=== PATIENT | female | born 1995 | race Caucasian/White ===

== ENCOUNTER 2020-02-18 19:12 | Inpatient (IN) | payer BC ==
[2020-02-18] MEDS ORDERED: Nalbuphine 10 MG/1 ML Vial IVPUSH PRN (23:04)
[2020-02-18] MEDS ORDERED: Lidocaine 1% 50 ML MDV INJECT PRN (23:04)
[2020-02-18] MEDS ORDERED: Sodium Chloride 0.9% 10 ML Syringe FLUSH PRN (23:04)
[2020-02-18] MEDS ORDERED: Tranexamic Acid 1,000 MG in Sodium Chloride 0.9% 100 ML IV PRN (23:04)
[2020-02-18] MEDS ORDERED: Ondansetron 4 MG/2 ML SDV IVPUSH PRN (23:04)
[2020-02-18] MEDS ORDERED: Carboprost Tromethamine 250 MCG/1 ML Amp IM PRN (23:04)
[2020-02-18] MEDS ORDERED: Methylergonovine 0.2 MG/1 ML Amp IM PRN (23:04)
[2020-02-18] MEDS ORDERED: Misoprostol 200 MCG Tab PO PRN (23:04)
[2020-02-18] MEDS ORDERED: Water For Irrigation,Sterile 1,000 ML Container IRR PRN (23:04)
[2020-02-18] MEDS ORDERED: Butorphanol 1 MG/ML SDV IVPUSH PRN (23:04)
[2020-02-18] MEDS ORDERED: Sodium Chloride 0.9% 10 ML SDV IV PRN (23:04)
[2020-02-18] MEDS ORDERED: Sodium Chloride 0.9% 2.5 ML Syringe FLUSH PRN (23:04)
[2020-02-18] MEDS ORDERED: Lactated Ringers 1,000 ML IV SCH (23:15)
[2020-02-18] MEDS ORDERED: Oxytocin/0.9 % Sodium Chloride 30 UNIT/500 ML BAG IV SCH (23:15)
[2020-02-19] MEDS ORDERED: Ibuprofen 800 MG Tab PO PRN (10:16)
[2020-02-19] MEDS ORDERED: Witch Hazel Medicated Pads 40/Jar TOP PRN (10:16)
[2020-02-19] MEDS ORDERED: Docusate Sodium 100 MG Cap PO PRN (10:16)
[2020-02-19] MEDS ORDERED: Lanolin 100% Cream 7 GM Tube TOP PRN (10:16)
[2020-02-19] MEDS ORDERED: Benzocaine/Menthol 20%-0.5% Spray 78 GM Cannister TOP PRN (10:16)
[2020-02-19] MEDS ORDERED: Bisacodyl 10 MG Supp RECTAL PRN (10:16)
[2020-02-19] MEDS ORDERED: Acetaminophen 500 MG Tab PO PRN ×2 (10:16)
[2020-02-19] MEDS ORDERED: oxyCODONE 5 MG Tab PO PRN (10:16)
[2020-02-19] MEDS ORDERED: Ibuprofen 400 MG Tab PO PRN (10:16)
--- NOTE | 2020-02-19 10:20 | PCM.DEL ---
L & D Note - General Info Date of Service: 02/19/20 Mother's Due Date: 02/19/20 - Delivery Note Labor: Augmented by ARM Delivery Method: Spontaneous Vaginal Delivery-Single Presentation: Right Occiput Anterior (JORDAN) Nuchal Cord: Present (X 2 , tight ) Anesthesia Type: None Amniotic Fluid Description: Clear Episiotomy Type: None Laceration: Labial (left labial small ) Placenta: Intact Cord: 3 Vessels Estimated Blood Loss: 100 Resuscitation Needed: No Score 1 min: 8 Score 5 min: 8 Delivery Comments (Free Text/Narrative):: Live female delivered at 920am , 8/8 , weight 3160g - General Info Date of Service: 02/19/20 - Patient Data Weight - Most Recent: 89.811 kg Lab Results Last 24 Hours: Laboratory Results - last 24 hr 02/18/20 02/18/20 02/18/20 Range/Units 19:28 23:21 23:45 WBC 14.18 H (4.0-11.0) K/uL RBC 4.17 L (4.30-5.90) M/uL Hgb 12.1 (12.0-16.0) g/dL Hct 36.5 (36.0-46.0) % MCV 87.5 (80.0-98.0) fL MCH 29.0 (27.0-32.0) pg MCHC 33.2 (31.0-37.0) g/dL RDW Std Deviation 43.4 (28.0-62.0) fl RDW Coeff of Rosa 14 (11.0-15.0) % Plt Count 223 (150-400) K/uL MPV 11.40 (7.40-12.00) fL Nucleated RBC % 0.0 /100WBC Nucleated RBCs # 0 K/uL Membrane Rupture NEGATIVE Blood Type B POSITIVE Antibody Screen NEGATIVE Med Orders - Current: Current Medications Butorphanol Tartrate (Stadol) 1 mg IVPUSH Q1H PRN PRN Reason: Pain Last Admin: 02/19/20 07:28 Dose: 1 mg Documented by: Carboprost Tromethamine (Hemabate Ds) 250 mcg IM ASDIRECTED PRN PRN Reason: Post Hemorrhage Lactated Ringer's (Ringers, Lactated) 1,000 mls @ 150 mls/hr IV ASDIRECTED [facility] Last Admin: 02/19/20 06:58 Dose: 150 mls/hr Documented by: Oxytocin/Sodium Chloride (Oxytocin 30 Unit/500 Ml-Ns) 30 unit in 500 mls @ 999 mls/hr IV TITRATE [facility] Tranexamic Acid 1,000 mg/ (Sodium Chloride) 110 mls @ 660 mls/hr IV ONETIME PRN PRN Reason: Bleeding Lidocaine HCl (Xylocaine 1%) 50 ml INJECT ONETIME PRN PRN Reason: Laceration repair Methylergonovine Maleate (Methergine) 0.2 mg IM ASDIRECTED PRN PRN Reason: Post Hemorrhage Ondansetron HCl (Zofran) 4 mg IVPUSH Q4H PRN PRN Reason: Nausea/Vomiting Sodium Chloride (Saline Flush) 10 ml FLUSH ASDIRECTED PRN PRN Reason: Keep Vein Open Sodium Chloride (Saline Flush) 2.5 ml FLUSH ASDIRECTED PRN PRN Reason: Keep Vein Open Sodium Chloride (Normal Saline) 10 ml IV ASDIRECTED PRN PRN Reason: IV Use Sterile Water (Sterile Water For Irrigation) 1,000 ml IRR ASDIRECTED PRN PRN Reason: delivery Discontinued Medications Misoprostol (Cytotec) 200 mcg PO ONETIME PRN PRN Reason: Post Hemorrhage Nalbuphine HCl (Nubain) 10 mg IVPUSH Q1H PRN PRN Reason: Pain (severe 7-10) - Problem List & Annotations (1) Vaginal delivery SNOMED Code(s): 672822729 Code(s): O80 - ENCOUNTER FOR FULL-TERM UNCOMPLICATED DELIVERY Status: Acute Current Visit: Yes - Problem List Review Problem List Initiated/Reviewed/Updated: Yes - My Orders Last 24 Hours: My Active Orders 02/18/20 19:34 Patient Status [ADT] Routine Up ad Sujey [RC] ASDIRECTED 02/18/20 23:04 Butorphanol [Stadol] 1 mg IVPUSH Q1H PRN Carboprost Tromethamine [Hemabate DS] 250 mcg IM ASDIRECTED PRN Lidocaine 1% [Xylocaine 1%] 50 ml INJECT ONETIME PRN Methylergonovine [Methergine] 0.2 mg IM ASDIRECTED PRN Ondansetron [Zofran] 4 mg IVPUSH Q4H PRN Sodium Chloride 0.9% [Normal Saline] 10 ml IV ASDIRECTED PRN Sodium Chloride 0.9% [Saline Flush] 10 ml FLUSH ASDIRECTED PRN Sodium Chloride 0.9% [Saline Flush] 2.5 ml FLUSH ASDIRECTED PRN Tranexamic Acid [Cyklokapron] 1,000 mg Sodium Chloride 0.9% [Normal Saline] 100 ml IV ONETIME Water For Irrigation,Sterile [Sterile Water for Irrigation] 1,000 ml IRR ASDIRECTED PRN 02/18/20 23:05 Patient Status [ADT] Routine May Shower [RC] ASDIRECTED Peripheral IV Insertion Adult [OM.PC] Routine 02/18/20 23:15 Lactated Ringers [Ringers, Lactated] 1,000 ml IV ASDIRECTED Oxytocin/0.9 % Sodium Chloride [Oxytocin 30 Unit/500 ML-NS] 30 unit in 500 ml IV TITRATE 02/18/20 23:45 RPR (SYPHILIS SERO) W/ RFLX [REF] Routine 02/19/20 10:16 Patient Status [ADT] Routine May Shower [RC] ASDIRECTED Up ad Sujey [RC] ASDIRECTED Vital Signs [RC] PER UNIT ROUTINE Acetaminophen [Tylenol Extra Strength] 1,000 mg PO Q4H PRN Acetaminophen [Tylenol Extra Strength] 500 mg PO Q4H PRN Benzocaine/Menthol [Dermoplast Pain Relief 20%-0.5% [place]] 78 gm TOP ASDIRECTED PRN Docusate Sodium [Colace] 100 mg PO BID PRN Ibuprofen [Motrin] 400 mg PO Q4H PRN Ibuprofen [Motrin] 800 mg PO Q6H PRN Lanolin [Lansinoh HPA] See Dose Instructions TOP ASDIRECTED PRN bisacodyL [Dulcolax] 10 mg RECTAL ONETIME PRN oxyCODONE 5 mg PO Q2H PRN witch Yannick [Tucks] 1 pad TOP ASDIRECTED PRN Assess Lochia [WOMSER] Per Unit Routine Assess Uterine Involution [WOMSER] Per Unit Routine Peripheral IV Discontinue [OM.PC] Routine Resuscitation Status Routine 02/20/20 05:11 HEMOGLOBIN/HEMATOCRIT,HH [HEME] Timed
--- NOTE | 2020-02-20 07:37 | PCM.PNPP ---
- General Info Date of Service: 02/20/20 Subjective Update: 25yo P1 s/p PPD 1 ambulating , voiding and Normal lochia , Functional Status: Reports: Pain Controlled, Tolerating Diet, Ambulating, Urinating - Review of Systems General: Reports: No Symptoms HEENT: Reports: No Symptoms Pulmonary: Reports: No Symptoms Cardiovascular: Reports: No Symptoms Gastrointestinal: Reports: No Symptoms Genitourinary: Reports: No Symptoms Musculoskeletal: Reports: No Symptoms Skin: Reports: No Symptoms Neurological: Reports: No Symptoms Psychiatric: Reports: No Symptoms - General Info Date of Service: 02/20/20 - Patient Data Vital Signs - Most Recent: Last Vital Signs Temp 36.0 C L 02/20/20 04:11 Pulse 77 02/20/20 04:11 Resp 18 02/20/20 04:11 BP 115/74 02/20/20 04:11 Pulse Ox 97 02/20/20 04:11 Weight - Most Recent: 89.811 kg Lab Results - Last 24 Hours: Laboratory Results - last 24 hr 02/20/20 Range/Units 05:40 Hgb 11.5 L (12.0-16.0) g/dL Hct 35.1 L (36.0-46.0) % Med Orders - Current: Current Medications Acetaminophen (Tylenol Extra Strength) 500 mg PO Q4H PRN PRN Reason: Pain Acetaminophen (Tylenol Extra Strength) 1,000 mg PO Q4H PRN PRN Reason: Pain Benzocaine/Menthol (Dermoplast Pain Relief 20%-0.5% [place]) 78 gm TOP ASDIRECTED PRN PRN Reason: Perineal Comfort Measure Last Admin: 02/19/20 11:43 Dose: 1 canister Documented by: Bisacodyl (Dulcolax) 10 mg RECTAL ONETIME PRN PRN Reason: Constipation Butorphanol Tartrate (Stadol) 1 mg IVPUSH Q1H PRN PRN Reason: Pain Last Admin: 02/19/20 07:28 Dose: 1 mg Documented by: Carboprost Tromethamine (Hemabate Ds) 250 mcg IM ASDIRECTED PRN PRN Reason: Post Hemorrhage Docusate Sodium (Colace) 100 mg PO BID PRN PRN Reason: Constipation Emollient Ointment (Lansinoh Hpa) 0 gm TOP ASDIRECTED PRN PRN Reason: Sore Nipples Last Admin: 02/19/20 11:44 Dose: 1 tube Documented by: Lactated Ringer's (Ringers, Lactated) 1,000 mls @ 150 mls/hr IV ASDIRECTED [facility] Last Admin: 02/19/20 06:58 Dose: 150 mls/hr Documented by: Oxytocin/Sodium Chloride (Oxytocin 30 Unit/500 Ml-Ns) 30 unit in 500 mls @ 999 mls/hr IV TITRATE [facility] Last Admin: 02/19/20 09:24 Dose: 999 mls/hr Documented by: Tranexamic Acid 1,000 mg/ (Sodium Chloride) 110 mls @ 660 mls/hr IV ONETIME PRN PRN Reason: Bleeding Ibuprofen (Motrin) 400 mg PO Q4H PRN PRN Reason: Pain Ibuprofen (Motrin) 800 mg PO Q6H PRN PRN Reason: Pain Lidocaine HCl (Xylocaine 1%) 50 ml INJECT ONETIME PRN PRN Reason: Laceration repair Methylergonovine Maleate (Methergine) 0.2 mg IM ASDIRECTED PRN PRN Reason: Post Hemorrhage Ondansetron HCl (Zofran) 4 mg IVPUSH Q4H PRN PRN Reason: Nausea/Vomiting Oxycodone HCl (Oxycodone) 5 mg PO Q2H PRN PRN Reason: Pain Sodium Chloride (Saline Flush) 10 ml FLUSH ASDIRECTED PRN PRN Reason: Keep Vein Open Sodium Chloride (Saline Flush) 2.5 ml FLUSH ASDIRECTED PRN PRN Reason: Keep Vein Open Sodium Chloride (Normal Saline) 10 ml IV ASDIRECTED PRN PRN Reason: IV Use Sterile Water (Sterile Water For Irrigation) 1,000 ml IRR ASDIRECTED PRN PRN Reason: delivery Witch Yannick (Tucks) 1 pad TOP ASDIRECTED PRN PRN Reason: comfort care Last Admin: 02/19/20 11:32 Dose: 1 pad Documented by: Discontinued Medications Misoprostol (Cytotec) 200 mcg PO ONETIME PRN PRN Reason: Post Hemorrhage Nalbuphine HCl (Nubain) 10 mg IVPUSH Q1H PRN PRN Reason: Pain (severe 7-10) - Interaction Support Person: , Sister - Exam General: Alert, Other Neck: Supple Lungs: Clear to Auscultation Cardiovascular: Regular Rate, Regular Rhythm GI/Abdominal Exam: Normal Bowel Sounds Extremities: Normal Inspection Neurological: No New Focal Deficit Psy/Mental Status: Alert - Problem List & Annotations (1) Vaginal delivery SNOMED Code(s): 176040560 Code(s): O80 - ENCOUNTER FOR FULL-TERM UNCOMPLICATED DELIVERY Status: Acute Current Visit: Yes - Problem List Review Problem List Initiated/Reviewed/Updated: Yes - My Orders Last 24 Hours: My Active Orders 02/19/20 10:16 Patient Status [ADT] Routine May Shower [RC] ASDIRECTED Up ad Sujey [RC] ASDIRECTED Vital Signs [RC] PER UNIT ROUTINE Acetaminophen [Tylenol Extra Strength] 1,000 mg PO Q4H PRN Acetaminophen [Tylenol Extra Strength] 500 mg PO Q4H PRN Benzocaine/Menthol [Dermoplast Pain Relief 20%-0.5% [place]] 78 gm TOP ASDIRECTED PRN Docusate Sodium [Colace] 100 mg PO BID PRN Ibuprofen [Motrin] 400 mg PO Q4H PRN Ibuprofen [Motrin] 800 mg PO Q6H PRN Lanolin [Lansinoh HPA] See Dose Instructions TOP ASDIRECTED PRN bisacodyL [Dulcolax] 10 mg RECTAL ONETIME PRN oxyCODONE 5 mg PO Q2H PRN witch Yannick [Tucks] 1 pad TOP ASDIRECTED PRN Assess Lochia [WOMSER] Per Unit Routine Assess Uterine Involution [WOMSER] Per Unit Routine Peripheral IV Discontinue [OM.PC] Routine Resuscitation Status Routine - Assessment Assessment:: 25yo P1 s/p PPD1 stable , normal lochia - Plan Plan:: Routine Discharge home vitamins Discharge home today
--- NOTE | 2020-02-21 05:30 | PCM.PNPP ---
- General Info Date of Service: 02/21/20 Subjective Update: 25yo P1 s/p PPD 2 ambulating , voiding and Normal lochia , Functional Status: Reports: Pain Controlled, Tolerating Diet, Ambulating, Urinating - Review of Systems General: Reports: No Symptoms HEENT: Reports: No Symptoms Pulmonary: Reports: No Symptoms Cardiovascular: Reports: No Symptoms Gastrointestinal: Reports: No Symptoms Genitourinary: Reports: No Symptoms Musculoskeletal: Reports: No Symptoms Skin: Reports: No Symptoms Neurological: Reports: No Symptoms Psychiatric: Reports: No Symptoms - General Info Date of Service: 02/21/20 - Patient Data Vital Signs - Most Recent: Last Vital Signs Temp 36.4 C 02/20/20 20:40 Pulse 75 02/20/20 20:40 Resp 17 02/20/20 20:40 BP 124/80 02/20/20 20:40 Pulse Ox 99 02/20/20 20:40 Weight - Most Recent: 89.811 kg Lab Results - Last 24 Hours: Laboratory Results - last 24 hr 02/20/20 Range/Units 05:40 Hgb 11.5 L (12.0-16.0) g/dL Hct 35.1 L (36.0-46.0) % Med Orders - Current: Current Medications Acetaminophen (Tylenol Extra Strength) 500 mg PO Q4H PRN PRN Reason: Pain Acetaminophen (Tylenol Extra Strength) 1,000 mg PO Q4H PRN PRN Reason: Pain Last Admin: 02/20/20 07:44 Dose: 1,000 mg Documented by: Benzocaine/Menthol (Dermoplast Pain Relief 20%-0.5% [place]) 78 gm TOP ASDIRECTED PRN PRN Reason: Perineal Comfort Measure Last Admin: 02/19/20 11:43 Dose: 1 canister Documented by: Bisacodyl (Dulcolax) 10 mg RECTAL ONETIME PRN PRN Reason: Constipation Butorphanol Tartrate (Stadol) 1 mg IVPUSH Q1H PRN PRN Reason: Pain Last Admin: 02/19/20 07:28 Dose: 1 mg Documented by: Carboprost Tromethamine (Hemabate Ds) 250 mcg IM ASDIRECTED PRN PRN Reason: Post Hemorrhage Docusate Sodium (Colace) 100 mg PO BID PRN PRN Reason: Constipation Emollient Ointment (Lansinoh Hpa) 0 gm TOP ASDIRECTED PRN PRN Reason: Sore Nipples Last Admin: 02/19/20 11:44 Dose: 1 tube Documented by: Lactated Ringer's (Ringers, Lactated) 1,000 mls @ 150 mls/hr IV ASDIRECTED [facility] Last Admin: 02/19/20 06:58 Dose: 150 mls/hr Documented by: Oxytocin/Sodium Chloride (Oxytocin 30 Unit/500 Ml-Ns) 30 unit in 500 mls @ 999 mls/hr IV TITRATE [facility] Last Admin: 02/19/20 09:24 Dose: 999 mls/hr Documented by: Tranexamic Acid 1,000 mg/ (Sodium Chloride) 110 mls @ 660 mls/hr IV ONETIME PRN PRN Reason: Bleeding Ibuprofen (Motrin) 400 mg PO Q4H PRN PRN Reason: Pain Ibuprofen (Motrin) 800 mg PO Q6H PRN PRN Reason: Pain Lidocaine HCl (Xylocaine 1%) 50 ml INJECT ONETIME PRN PRN Reason: Laceration repair Methylergonovine Maleate (Methergine) 0.2 mg IM ASDIRECTED PRN PRN Reason: Post Hemorrhage Ondansetron HCl (Zofran) 4 mg IVPUSH Q4H PRN PRN Reason: Nausea/Vomiting Oxycodone HCl (Oxycodone) 5 mg PO Q2H PRN PRN Reason: Pain Sodium Chloride (Saline Flush) 10 ml FLUSH ASDIRECTED PRN PRN Reason: Keep Vein Open Sodium Chloride (Saline Flush) 2.5 ml FLUSH ASDIRECTED PRN PRN Reason: Keep Vein Open Sodium Chloride (Normal Saline) 10 ml IV ASDIRECTED PRN PRN Reason: IV Use Sterile Water (Sterile Water For Irrigation) 1,000 ml IRR ASDIRECTED PRN PRN Reason: delivery Witch Kamila (Tucks) 1 pad TOP ASDIRECTED PRN PRN Reason: comfort care Last Admin: 02/19/20 11:32 Dose: 1 pad Documented by: Discontinued Medications Misoprostol (Cytotec) 200 mcg PO ONETIME PRN PRN Reason: Post Hemorrhage Nalbuphine HCl (Nubain) 10 mg IVPUSH Q1H PRN PRN Reason: Pain (severe 7-10) - Interaction Support Person: , Sister - Recovery Exam Fundal Tone: Firm Fundal Level: At Umbilicus Fundal Placement: Midline Lochia Amount: Scant Lochia Color: Rubra/Red Perineum Description: Intact, Minimal Bruising/Swelling Episiotomy/Laceration: None Bladder Status: Voiding Urinary Elimination: Voided - Exam General: Alert HEENT: Pupils Equal Neck: Supple Lungs: Clear to Auscultation Cardiovascular: Regular Rate, Regular Rhythm GI/Abdominal Exam: Normal Bowel Sounds Extremities: Normal Inspection Neurological: No New Focal Deficit - Problem List & Annotations (1) Vaginal delivery SNOMED Code(s): 167923699 Code(s): O80 - ENCOUNTER FOR FULL-TERM UNCOMPLICATED DELIVERY Status: Acute Current Visit: Yes - Problem List Review Problem List Initiated/Reviewed/Updated: Yes - My Orders Last 24 Hours: My Active Orders 02/20/20 Dinner Regular Diet [DIET] 02/21/20 05:27 Ready for Discharge [RC] PER UNIT ROUTINE - Assessment Assessment:: 25yo P1 s/p PPD2 stable , normal lochia stayed due to neonates hyperbilirubinemia - Plan Plan:: Routine Discharge home vitamins Discharge home today
--- NOTE | 2020-02-21 08:22 | OR ---
SURGEON: ELIO KELLEY DATE OF PROCEDURE: 02/19/2020 PREOPERATIVE DIAGNOSIS: A 25-year-old, G1, P0, at 40 weeks 0 days, admitted in early labor. POSTOPERATIVE DIAGNOSIS: A 25-year-old, G1, P0, at 40 weeks 0 days, admitted in early labor. PROCEDURE: Normal spontaneous vaginal delivery. ESTIMATED BLOOD LOSS: 100. PAIN CONTROL: None. IV FLUID: Pitocin running. NOTES AND FINDINGS: A live female with a double nuchal cord, delivered at 9:20 a.m. score is 8 and 8. Weight is 3160 g. BRIEF HISTORY ABOUT THE PATIENT: She was a low-risk patient. She came in complaining of contractions. She was about 4 cm dilated. She made change to 6, then AROM was done. She then made progress and became fully dilated. Heart tracing was mainly category 1. She just had a period where she had some variables, which recovered back to baseline. DESCRIPTION OF PROCEDURE: When the patient was fully dilated, she was encouraged to push. With good pushing effort, she delivered the head. There was a nuchal cord noted around the neck x2. It was attempted to be reduced, however, it was really tight. So she was encouraged to push. Both the shoulders were delivered. Body was delivered, and after delivery, the cord was unwrapped around the neck. Baby was placed on maternal abdomen. Delayed cord clamping was observed. The cord was clamped and cut. Cord blood gases were obtained. Then, the placenta was delivered via controlled cord traction. Perineum was inspected, noted to be intact. IV Pitocin was running. Bimanual exam was done. Uterus was noted to be firm. The patient tolerated the procedure well. All instrument and pad counts were correct x2. SHADI / KEITH /[id number] SANDEEP
== END 2020-02-21 17:00 | disposition home or self-care (01) | DRG 560 ==
LOC: MW.OB 19:12 → MW.OBCHECK 19:12 → MW.OB 23:05 → OBSVTOIN 02-19 10:16 → MW.OB 02-19 16:39
PROVIDERS: ADMIT Obstetrics & Gynecology; ATTEND Obstetrics & Gynecology
PROC: 10E0XZZ Delivery of Products of Conception, External Approach (ICD-10-PCS; principal; 2020-02-19)
PROC: 4A1HXCZ Monitoring of Products of Conception, Cardiac Rate, External Approach (ICD-10-PCS; 2020-02-19)
PROC: 10907ZC Drainage of Amniotic Fluid, Therapeutic from Products of Conception, Via Natural or Artificial Opening (ICD-10-PCS; 2020-02-19)
PROC: 0HQ9XZZ Repair Perineum Skin, External Approach (ICD-10-PCS; 2020-02-19)
DX: O48.0 Post-term pregnancy (principal); Z3A.40 40 weeks gestation of pregnancy; Z37.0 Single live birth; Z98.84 Bariatric surgery status; O69.1XX0 Labor and delivery complicated by cord around neck, with compression, not applicable or unspecified; O70.0 First degree perineal laceration during delivery
CPT/HCPCS: 36415; 59025; 59409; 84112; 85014; 85018; 85027; 86592; 86850; 86900; 86901; A9270-GY; J0595; J2590; J7120

== ENCOUNTER 2020-02-24 13:52 | Inpatient (IN) | payer BC ==
[2020-02-24] MEDS ORDERED: Sodium Chloride 0.9% 1,000 ML IV ONE ×3 (14:22→17:06)
--- NOTE | 2020-02-24 14:27 | EDM.PDOC ---
ED HPI GENERAL MEDICAL PROBLEM - General Chief Complaint: Fever Stated Complaint: fever Time Seen by Provider: 02/24/20 13:58 Source of Information: Reports: Patient History Limitations: Reports: No Limitations - History of Present Illness INITIAL COMMENTS - FREE TEXT/NARRATIVE: Female who is and presents today for DUNCAN and fevers. Patient has been follow with [facility] since delivery complaining of fevers and was placed on Augmentin as outpatient. Patient seemed to follow-up with [facility] today and was scant tachycardia and had worsening DUNCAN so she was sent to the ED. Here patient is states she is feels tired and weak and had a fever no abdominal pain no nausea vomiting shortness of breath no vaginal bleeding. - Related Data Allergies Allergy/AdvReac Type Severity Reaction Status Date / Time No Known Allergies Allergy Verified 02/18/20 23:01 Home Meds: Home Meds Pnv No.95/Ferrous Fum/Folic AC [ Caplet] 1 each PO 02/18/20 [History] Amoxicillin/Potassium Clav [Amox-Clav 875-125 mg Tablet] 1 tab PO BID 02/24/20 [History] Past Medical History HEENT History: Reports: None Cardiovascular History: Reports: None Respiratory History: Reports: None Gastrointestinal History: Reports: None Genitourinary History: Reports: None [employer] History: Reports: Musculoskeletal History: Reports: None Neurological History: Reports: None Psychiatric History: Reports: None Endocrine/Metabolic History: Reports: None Hematologic History: Reports: None Immunologic History: Reports: None Oncologic (Cancer) History: Reports: None Dermatologic History: Reports: None - Infectious Disease History Infectious Disease History: Reports: Chicken Pox - Past Surgical History Head Surgeries/Procedures: Reports: None HEENT Surgical History: Reports: None Cardiovascular Surgical History: Reports: None Respiratory Surgical History: Reports: None GI Surgical History: Reports: Other (See Below) Other GI Surgeries/Procedures: Gastric sleeve in 2018 Female Surgical History: Reports: None Endocrine Surgical History: Reports: None Neurological Surgical History: Reports: None Musculoskeletal Surgical History: Reports: None Oncologic Surgical History: Reports: None Dermatological Surgical History: Reports: None Social & Family History - Family History HEENT: Reports: None Cardiac: Reports: None Respiratory: Reports: None GI: Reports: None : Reports: None OBGYN: Reports: None Musculoskeletal: Reports: None Neurological: Reports: Alzheimers Disease, Vertigo Other Neurological Family History: Stroke Psychiatric: Reports: None Endocrine/Metabolic: Reports: None Hematologic: Reports: None Immunologic: Reports: None Dermatologic: Reports: None Oncologic: Reports: None - Tobacco Use Tobacco Use Status *Q: Former Tobacco User Used Tobacco, but Quit: Yes Month/Year Tobacco Last Used: 05/20 - Caffeine Use Caffeine Use: Reports: Soda - Recreational Drug Use Recreational Drug Use: No ED ROS GENERAL - Review of Systems Review Of Systems: See Below Constitutional: Reports: Fever HEENT: Reports: No Symptoms Respiratory: Reports: No Symptoms Cardiovascular: Reports: No Symptoms Endocrine: Reports: No Symptoms GI/Abdominal: Reports: No Symptoms : Reports: No Symptoms Musculoskeletal: Reports: No Symptoms Skin: Reports: No Symptoms Neurological: Reports: No Symptoms Psychiatric: Reports: No Symptoms Hematologic/Lymphatic: Reports: No Symptoms Immunologic: Reports: No Symptoms ED EXAM, GENERAL - Physical Exam Exam: See Below Exam Limited By: No Limitations General Appearance: Alert, WD/WN Eye Exam: Bilateral Eye: EOMI, PERRL Head: Atraumatic Neck: Normal Inspection Respiratory/Chest: No Respiratory Distress, Lungs Clear, Normal Breath Sounds Cardiovascular: Normal Peripheral Pulses, Regular Rate, Rhythm GI/Abdominal: Normal Bowel Sounds, Soft, Non-Tender Extremities: Normal Inspection, Normal Range of Motion Neurological: Alert, Oriented, CN II-XII Intact, Normal Cognition, Normal Gait Skin Exam: Warm #1 Interpretation EKG Date: 02/24/20 Time: 14:17 Rhythm: Other (sinus tach) Rate (Beats/Min): 136 ST-T: Normal Course - Vital Signs Last Recorded V/S: Last Vital Signs Temp 99.9 F 02/24/20 16:35 Pulse 151 H 02/24/20 18:03 Resp 20 02/24/20 18:03 BP 97/34 L 02/24/20 18:03 Pulse Ox 98 02/24/20 18:03 - Orders/Labs/Meds Orders: Active Orders 24 hr Category Date Time Status Admission Status [Patient Status] [ADT] Stat ADT 02/24/20 18:12 Active EKG 12 Lead [EKG Documentation Completion] [RC] STAT Care 02/24/20 14:25 Active Magnesium Sulfate/Water [Magnesium Sulfate in Water Med 02/24/20 18:08 Active Premix] 1 gm in 25 ml IV ONETIME Piperacillin/Tazobactam [Piperacil-Tazobact] 3.375 gm Med 02/24/20 18:18 Active Sodium Chloride 0.9% [Normal Saline] 50 ml IV ONETIME Medication Orders Magnesium Sulfate (Magnesium Sulfate In Water Premix) 1 gm in 25 mls @ 50 mls/hr IV ONETIME ONE Stop: 02/24/20 18:37 Piperacillin Sod/Tazobactam (Sod 3.375 gm/ Sodium Chloride) 50 mls @ 100 mls/hr IV ONETIME ONE Stop: 02/24/20 18:47 Labs: Laboratory Tests 02/24/20 02/24/20 02/24/20 Range/Units 14:25 14:25 14:25 WBC 11.11 H (4.0-11.0) K/uL RBC 4.26 L (4.30-5.90) M/uL Hgb 12.2 (12.0-16.0) g/dL Hct 37.0 (36.0-46.0) % MCV 86.9 (80.0-98.0) fL MCH 28.6 (27.0-32.0) pg MCHC 33.0 (31.0-37.0) g/dL RDW Std Deviation 44.0 (28.0-62.0) fl RDW Coeff of Rosa 14 (11.0-15.0) % Plt Count 113 L (150-400) K/uL MPV 11.30 (7.40-12.00) fL Add Manual Diff YES Neutrophils % (Manual) 41 L (48.0-80.0) % Band Neutrophils % 54 % Lymphocytes % (Manual) 1 L (16.0-40.0) % Monocytes % (Manual) 2 (0.0-15.0) % Eosinophils % (Manual) 2 (0.0-7.0) % Nucleated RBC % 0.0 /100WBC Absolute Seg Neuts 4.6 (1.4-5.7) Band Neutrophils # 6.0 Lymphocytes # (Manual) 0.1 L (0.6-2.4) Monocytes # (Manual) 0.2 (0.0-0.8) Eosinophils # (Manual) 0.2 (0.0-0.7) Nucleated RBCs # 0 K/uL Vacuolated Monocytes 2+ MODERATE Platelet Estimate D-Dimer, Quantitative > 35.20 H (0.0-0.50) mg/L FEU Lactate 4.2 H* (0.20-2.00) mmol/L Sodium (136-145) mmol/L Potassium (3.5-5.1) mmol/L Chloride (98-107) mmol/L Carbon Dioxide (21.0-32.0) mmol/L BUN (7.0-18.0) mg/dL Creatinine (0.6-1.0) mg/dL Est Cr Clr Drug Dosing mL/min Estimated GFR (MDRD) ml/min Glucose (74-106) mg/dL Calcium (8.5-10.1) mg/dL Phosphorus (2.6-4.7) mg/dL Magnesium (1.8-2.4) mg/dL Total Bilirubin (0.2-1.0) mg/dL AST (15-37) IU/L ALT (14-63) IU/L Alkaline Phosphatase (46-116) U/L Troponin I (0.000-0.056) ng/mL Total Protein (6.4-8.2) g/dL Albumin (3.4-5.0) g/dL Globulin (2.6-4.0) g/dL Albumin/Globulin Ratio (0.9-1.6) Lipase (73-393) U/L 02/24/20 02/24/20 02/24/20 Range/Units 14:25 17:18 17:18 WBC (4.0-11.0) K/uL RBC (4.30-5.90) M/uL Hgb (12.0-16.0) g/dL Hct (36.0-46.0) % MCV (80.0-98.0) fL MCH (27.0-32.0) pg MCHC (31.0-37.0) g/dL RDW Std Deviation (28.0-62.0) fl RDW Coeff of Rosa (11.0-15.0) % Plt Count (150-400) K/uL MPV (7.40-12.00) fL Add Manual Diff Neutrophils % (Manual) (48.0-80.0) % Band Neutrophils % % Lymphocytes % (Manual) (16.0-40.0) % Monocytes % (Manual) (0.0-15.0) % Eosinophils % (Manual) (0.0-7.0) % Nucleated RBC % /100WBC Absolute Seg Neuts (1.4-5.7) Band Neutrophils # Lymphocytes # (Manual) (0.6-2.4) Monocytes # (Manual) (0.0-0.8) Eosinophils # (Manual) (0.0-0.7) Nucleated RBCs # K/uL Vacuolated Monocytes Platelet Estimate D-Dimer, Quantitative (0.0-0.50) mg/L FEU Lactate 3.1 H* (0.20-2.00) mmol/L Sodium 134 L 133 L (136-145) mmol/L Potassium 3.5 3.4 L (3.5-5.1) mmol/L Chloride 99 101 (98-107) mmol/L Carbon Dioxide 18.6 L 17.6 L (21.0-32.0) mmol/L BUN 34 H 31 H (7.0-18.0) mg/dL Creatinine 2.5 H 1.9 H (0.6-1.0) mg/dL Est Cr Clr Drug Dosing 29.45 38.75 mL/min Estimated GFR (MDRD) 23.3 32.0 ml/min Glucose 98 75 (74-106) mg/dL Calcium 8.0 L 7.1 L (8.5-10.1) mg/dL Phosphorus 3.6 (2.6-4.7) mg/dL Magnesium 1.6 L (1.8-2.4) mg/dL Total Bilirubin 0.9 (0.2-1.0) mg/dL AST 40 H (15-37) IU/L ALT 44 (14-63) IU/L Alkaline Phosphatase 86 (46-116) U/L Troponin I < 0.050 (0.000-0.056) ng/mL Total Protein 5.5 L (6.4-8.2) g/dL Albumin 2.1 L (3.4-5.0) g/dL Globulin 3.4 (2.6-4.0) g/dL Albumin/Globulin Ratio 0.6 L (0.9-1.6) Lipase 42 L (73-393) U/L Meds: Medications Generic Name Dose Route Start Last Admin Trade Name Freq PRN Reason Stop Dose Admin Magnesium Sulfate 1 gm in 25 mls @ 50 mls/hr 02/24/20 18:08 Magnesium Sulfate In Water Premix IV 02/24/20 18:37 ONETIME ONE Piperacillin Sod/Tazobactam 50 mls @ 100 mls/hr 02/24/20 18:18 Sod 3.375 gm/ Sodium Chloride IV 02/24/20 18:47 ONETIME ONE Discontinued Medications Generic Name Dose Route Start Last Admin Trade Name Freq PRN Reason Stop Dose Admin Acetaminophen 1,000 mg 02/24/20 15:47 02/24/20 15:51 Tylenol Extra Strength PO 02/24/20 15:48 1,000 mg ONETIME ONE Administration Acetaminophen Confirm 02/24/20 15:48 02/24/20 15:55 Tylenol Extra Strength Administered 02/24/20 15:49 Not Given Dose 1,000 mg .ROUTE .STK-MED ONE Calcium Gluconate 1 gm 02/24/20 18:07 Calcium Gluconate IVPUSH 02/24/20 18:08 ONETIME ONE Sodium Chloride 1,000 mls @ 999 mls/hr 02/24/20 14:22 02/24/20 14:26 Normal Saline IV 02/24/20 15:22 999 mls/hr .BOLUS ONE Administration Sodium Chloride 1,000 mls @ 1,000 mls/hr 02/24/20 15:47 02/24/20 15:52 Normal Saline IV 02/24/20 16:46 1,000 mls/hr .Bolus ONE Administration Sodium Chloride 1,000 mls @ 999 mls/hr 02/24/20 17:06 02/24/20 17:08 Normal Saline IV 02/24/20 18:06 999 mls/hr .Bolus ONE Administration Iopamidol 100 ml 02/24/20 16:57 02/24/20 16:57 Isovue Multipack-370 (76%) IVPUSH 02/24/20 16:58 100 ml ONETIME STA Administration Departure - Departure Time of Disposition: 18:23 Disposition: Admitted As Inpatient 65 Condition: Good Clinical Impression: DUNCAN (acute kidney injury) - Discharge Information *PRESCRIPTION DRUG MONITORING PROGRAM REVIEWED*: Not Applicable *COPY OF PRESCRIPTION DRUG MONITORING REPORT IN PATIENT JONY: Not Applicable Referrals: PCP,None [Primary Care Provider] - Forms: ED Department Discharge Sepsis Event Note (ED) - Evaluation Sepsis Screening Result: Possible Sepsis Risk - Focused Exam Vital Signs: Vital Signs Temp Temp Pulse Resp BP BP BP 02/24/20 18:03 151 H 20 97/34 L 02/24/20 17:03 144 H 16 83/37 L 79/35 L 02/24/20 16:35 99.9 F 137 H 18 135/115 H 02/24/20 16:21 99.9 F 02/24/20 15:45 103.3 F H 138 H 24 H 101/48 L 02/24/20 14:11 100.7 F H 154 H 18 138/117 H Pulse Ox 02/24/20 18:03 98 02/24/20 17:03 96 02/24/20 16:35 97 02/24/20 16:21 02/24/20 15:45 96 02/24/20 14:11 99 - My Orders Last 24 Hours: My Active Orders 02/24/20 14:25 EKG 12 Lead [EKG Documentation Completion] [RC] STAT 02/24/20 18:08 Magnesium Sulfate/Water [Magnesium Sulfate in Water Premix] 1 gm in 25 ml IV ONETIME 02/24/20 18:12 Admission Status [Patient Status] [ADT] Stat 02/24/20 18:18 Piperacillin/Tazobactam [Piperacil-Tazobact] 3.375 gm Sodium Chloride 0.9% [Normal Saline] 50 ml IV ONETIME - Assessment/Plan Last 24 Hours: My Active Orders 02/24/20 14:25 EKG 12 Lead [EKG Documentation Completion] [RC] STAT 02/24/20 18:08 Magnesium Sulfate/Water [Magnesium Sulfate in Water Premix] 1 gm in 25 ml IV ONETIME 02/24/20 18:12 Admission Status [Patient Status] [ADT] Stat 02/24/20 18:18 Piperacillin/Tazobactam [Piperacil-Tazobact] 3.375 gm Sodium Chloride 0.9% [Normal Saline] 50 ml IV ONETIME Assessment:: Is a 25-year-old female who is presents today for fever DUNCAN. On exam patient is tachycardic and febrile 103. Labs and CT were performed. Patient was given 2 L of fluid and likely still remains elevated and creatinine did improve to 1.9. Patient also has some periods of low blood pressure. There is no source of patient's possible infection we will continue to give fluids antibiotics and admit to the [facility] service.
[2020-02-24 14:58] LABS: BLOOD UREA NITROGEN,BUN 34 mg/dL (7.0-18.0); CARBON DIOXIDE,CO2 18.6 mmol/L (21.0-32.0); CHLORIDE,CL 99 mmol/L (98-107); GLUCOSE RANDOM 98 mg/dL (74-106); LIPASE 42 U/L (73-393); POTASSIUM,K 3.5 mmol/L (3.5-5.1); SODIUM,NA 134 mmol/L (136-145)
[2020-02-24] MEDS ORDERED: Acetaminophen 500 MG Tab PO ONE (15:47)
[2020-02-24] MEDS ORDERED: Acetaminophen 500 MG Tab ONE (15:48)
[2020-02-24] MEDS ORDERED: Iopamidol 755 MG/ML 500 ML Multipack Bottle IVPUSH STA (16:57)
[2020-02-24 17:42] LABS: CARBON DIOXIDE,CO2 17.6 mmol/L (21.0-32.0); POTASSIUM,K 3.4 mmol/L (3.5-5.1)
--- NOTE | 2020-02-24 17:45 | CT ---
INDICATION: Tachycardia. Elevated D-dimer. TECHNIQUE: CT chest pulmonary PE protocol acquired with IV contrast. 100 mL of Isovue 370 administered. COMPARISON: None FINDINGS: Cardiovascular structures: Suboptimal timing of the contrast bolus as well as respiratory motion artifact, limiting evaluation of segmental and subsegmental pulmonary arteries. No gross large central pulmonary embolus seen. Prominent proximal main pulmonary artery. Normal cardiac size and aortic caliber. Mediastinum and carla: Soft tissue density in the anterior mediastinum compatible with small thymic tissue. A prominent azygoesophageal lymph node measuring 1.5 x 1.3 cm, nonspecific. Lungs: Mosaic attenuation in the lower lobes with patchy ground-glass opacities. Nodular opacities along the minor fissure on images 32 and 33, measuring up to 5 mm. Pleura and pericardium: No pleural effusions. A small posterior pericardial effusion. Chest wall and axilla: Shotty subcentimeter axillary lymph nodes. Bones: No significant findings. IMPRESSION: Limited pulmonary angiogram, nondiagnostic for segmental and subsegmental pulmonary arteries. No gross large, central pulmonary embolus seen. If indicated, correlate with V/Q scan for further evaluation. Dilated proximal main pulmonary artery. Correlate clinically to exclude pulmonic stenosis. Mosaic attenuation in the lower lobes with ill-defined ground-glass opacities which could be related to small airway disease with foci of air trapping, however correlate clinically to exclude a nonspecific pneumonitis or evolving edema. A small pericardial effusion. Pleural based pulmonary nodules along the minor fissure, statistically postinflammatory in a patient of this age without history of neoplasm. If there are high risk factors, or otherwise clinically indicated, follow-up could be considered. Please note that all CT scans at this facility use dose modulation, iterative reconstruction, and/or weight-based dosing when appropriate to reduce radiation dose to as low as reasonably achievable. Dictated by Michael Prescott MD @ Feb 24 2020 5:28PM Signed by Dr. Michael Prescott @ Feb 24 2020 5:44PM
--- NOTE | 2020-02-24 18:00 | CT ---
INDICATION: Recent vaginal delivery. Pain. Tachycardia TECHNIQUE: CT abdomen and pelvis acquired with IV contrast. 100 mL of Isovue 370 administered. COMPARISON: None available FINDINGS: There is limited contrast opacification. Liver: Hepatomegaly measuring 23.2 cm craniocaudally. Spleen: Splenomegaly measuring 15.9 cm. Pancreas: Unremarkable. Gallbladder and bile ducts: Unremarkable. Adrenal glands: A punctate right adrenal calcification, postinfectious versus sequela of prior hemorrhage. Kidneys: Unremarkable. GI tract: Post sleeve gastrectomy changes. No mechanical bowel obstruction. Nondilated fluid-filled small bowel segments, nonspecific. Portions of a non dilated fluid-filled appendix seen with slight wall enhancement, however, without significant periappendiceal changes. Apparent wall thickening in the ascending colon which could be partially related to under distension. Liquid stool in the left colon compatible with a diarrheal illness. Vascular structures: Unremarkable. Lymph nodes: Unremarkable. Miscellaneous: Small pelvic free fluid as well as edema adjacent to the lower uterine segment. No free air. Pelvic Organs: An enlarged uterus. Prominent heterogeneous low attenuation endometrium, containing ill-defined areas of increased attenuation which could represent blood products. Irregularity of the posterior endometrial margin. No discrete bladder abnormality seen. Bones: Unremarkable for age. IMPRESSION: Nonspecific fluid-filled small bowel segments, ascending colon wall thickening, and left colonic wall liquid stool consistent with a diarrheal illness. Correlate for enterocolitis. A portion of a fluid filled appendix seen, however not abnormally dilated. Correlate clinically. Hepatosplenomegaly. An enlarged uterus. Prominent endometrium containing apparent blood products, as well as irregularity of the posterior endometrial margin. Correlate clinically and with pelvic sonography, as clinically indicated. Small pelvic free fluid and pelvic edema adjacent to the lower uterine segment. Please note that all CT scans at this facility use dose modulation, iterative reconstruction, and/or weight-based dosing when appropriate to reduce radiation dose to as low as reasonably achievable. Dictated by Michael Prescott MD @ Feb 24 2020 5:28PM Signed by Dr. Michael Prescott @ Feb 24 2020 5:58PM
[2020-02-24] MEDS ORDERED: Calcium Gluconate 10% 1 GM/10 ML SDV IVPUSH ONE (18:07)
[2020-02-24] MEDS ORDERED: Magnesium Sulfate/Water 1 GM/25 ML BAG IV ONE (18:08)
[2020-02-24] MEDS ORDERED: Piperacillin/Tazobactam 3.375 GM in Sodium Chloride 0.9% 50 ML IV ONE (18:18)
[2020-02-24] MEDS ORDERED: Ondansetron 4 MG/2 ML SDV IVPUSH PRN (19:21)
--- NOTE | 2020-02-24 19:42 | PCM.HP.2 ---
H&P History of Present Illness - General Date of Service: 02/24/20 Admit Problem/Dx: Admission Diagnosis/Problem Admission Diagnosis/Problem Acute kidney injury - History of Present Illness Initial Comments - Free Text/Narative: 25yo PPD5 s/p uncomplicated presenting with fevers and tachycardia. Patient reported fevers and chills starting yesterday. She denies abdominal/flank pain, chest pain, cough, SOB. Light light vaginal bleeding. She has been , denies breast pain. She had COVID19 in Jan. and delivery was uncomplicated, she did not have prolonged rupture of membranes or signs of endometritis. She was seen in clinic yesterday, she was tachycardic to 140-150s, labs showed WBC of 14, blood culture were sent. She was given IM ceftriaxone and toradol, and started on augmentin for breast engorgement. She followed up in clinic today, was feeling better. Did not have a fever since last night, but continues to be tachycardic. CMP was done which showed elevated Cr of 2.4. She was sent to ED for evaluation. She had elevated lactate of 4.2, and received dose of zosyn and 2L of IV fluids. Cr decreased to 1.9, lactate decreased to 3.1. She had CT chest, ABD and Pelvis which were unremarkable. UA showed + nitrites and bacteria. PMH: PCOS, migraines, ulcers PSH: tonsilectomy and adenoectomy 1997, gastric sleeve 01/2018 SH: former smoker, no recreational drug use All: NKDA - Related Data Allergies/Adverse Reactions: Allergies Allergy/AdvReac Type Severity Reaction Status Date / Time No Known Allergies Allergy Verified 02/24/20 22:56 Home Medications: Home Meds Pnv No.95/Ferrous Fum/Folic AC [ Caplet] 1 each PO DAILY 02/18/20 [History] Amoxicillin/Potassium Clav [Amox-Clav 875-125 mg Tablet] 1 tab PO BID 02/24/20 [History] Past Medical History HEENT History: Reports: None Cardiovascular History: Reports: None Respiratory History: Reports: None Gastrointestinal History: Reports: None Genitourinary History: Reports: None D[employer] History: Reports: Musculoskeletal History: Reports: None Neurological History: Reports: None Psychiatric History: Reports: None Endocrine/Metabolic History: Reports: None Hematologic History: Reports: None Immunologic History: Reports: None Oncologic (Cancer) History: Reports: None Dermatologic History: Reports: None - Infectious Disease History Infectious Disease History: Reports: Chicken Pox - Past Surgical History Head Surgeries/Procedures: Reports: None HEENT Surgical History: Reports: None Cardiovascular Surgical History: Reports: None Respiratory Surgical History: Reports: None GI Surgical History: Reports: Other (See Below) Other GI Surgeries/Procedures: Gastric sleeve in 2018 Female Surgical History: Reports: None Endocrine Surgical History: Reports: None Neurological Surgical History: Reports: None Musculoskeletal Surgical History: Reports: None Oncologic Surgical History: Reports: None Dermatological Surgical History: Reports: None Social & Family History - Family History HEENT: Reports: None Cardiac: Reports: None Respiratory: Reports: None GI: Reports: None : Reports: None OBGYN: Reports: None Musculoskeletal: Reports: None Neurological: Reports: Alzheimers Disease, Vertigo Other Neurological Family History: Stroke Psychiatric: Reports: None Endocrine/Metabolic: Reports: None Hematologic: Reports: None Immunologic: Reports: None Dermatologic: Reports: None Oncologic: Reports: None - Tobacco Use Tobacco Use Status *Q: Former Tobacco User Used Tobacco, but Quit: Yes Month/Year Tobacco Last Used: 05/20 - Caffeine Use Caffeine Use: Reports: Soda - Recreational Drug Use Recreational Drug Use: No H&P Review of Systems - Review of Systems: Review Of Systems: See Below General: Reports: Fever, Chills, Malaise HEENT: Reports: No Symptoms Pulmonary: Reports: No Symptoms Cardiovascular: Reports: No Symptoms Gastrointestinal: Reports: No Symptoms Genitourinary: Reports: Dysuria Musculoskeletal: Reports: No Symptoms Skin: Reports: No Symptoms Psychiatric: Reports: No Symptoms Neurological: Reports: No Symptoms Hematologic/Lymphatic: Reports: No Symptoms Immunologic: Reports: No Symptoms Exam - Exam Exam: See Below - Vital Signs Vital Signs: Last Vital Signs Temp 37.7 C 02/24/20 16:35 Pulse 135 H 02/24/20 19:23 Resp 18 02/24/20 19:23 BP 83/36 L 02/24/20 19:23 Pulse Ox 97 02/24/20 19:23 Weight: 185 lb - Exam General: Alert, Oriented, Cooperative HEENT: Conjunctiva Clear, Mucosa Moist & [place] Neck: Supple, Trachea Midline Lungs: Clear to Auscultation Cardiovascular: Regular Rate, Regular Rhythm, Normal S1, Normal S2 GI/Abdominal Exam: Normal Bowel Sounds, Soft, Non-Tender, No Distention (Female) Exam: Normal External Exam Back Exam: Normal Inspection, Full Range of Motion Extremities: Normal Inspection, Normal Range of Motion, Non-Tender, No Pedal Edema Skin: Warm, Dry, Intact Neurological: Cranial Nerves Intact Neuro Extensive - Mental Status: Alert, Oriented x3, Normal Mood/Affect - Patient Data Lab Results Last 24 hrs: Laboratory Results - last 24 hr 02/24/20 02/24/20 02/24/20 Range/Units 14:25 14:25 14:25 WBC 11.11 H (4.0-11.0) K/uL RBC 4.26 L (4.30-5.90) M/uL Hgb 12.2 (12.0-16.0) g/dL Hct 37.0 (36.0-46.0) % MCV 86.9 (80.0-98.0) fL MCH 28.6 (27.0-32.0) pg MCHC 33.0 (31.0-37.0) g/dL RDW Std Deviation 44.0 (28.0-62.0) fl RDW Coeff of Rosa 14 (11.0-15.0) % Plt Count 113 L (150-400) K/uL MPV 11.30 (7.40-12.00) fL Add Manual Diff YES Neutrophils % (Manual) 41 L (48.0-80.0) % Band Neutrophils % 54 % Lymphocytes % (Manual) 1 L (16.0-40.0) % Monocytes % (Manual) 2 (0.0-15.0) % Eosinophils % (Manual) 2 (0.0-7.0) % Nucleated RBC % 0.0 /100WBC Absolute Seg Neuts 4.6 (1.4-5.7) Band Neutrophils # 6.0 Lymphocytes # (Manual) 0.1 L (0.6-2.4) Monocytes # (Manual) 0.2 (0.0-0.8) Eosinophils # (Manual) 0.2 (0.0-0.7) Nucleated RBCs # 0 K/uL Vacuolated Monocytes 2+ MODERATE Platelet Estimate D-Dimer, Quantitative > 35.20 H (0.0-0.50) mg/L FEU Lactate 4.2 H* (0.20-2.00) mmol/L Sodium (136-145) mmol/L Potassium (3.5-5.1) mmol/L Chloride (98-107) mmol/L Carbon Dioxide (21.0-32.0) mmol/L BUN (7.0-18.0) mg/dL Creatinine (0.6-1.0) mg/dL Est Cr Clr Drug Dosing mL/min Estimated GFR (MDRD) ml/min Glucose (74-106) mg/dL Calcium (8.5-10.1) mg/dL Phosphorus (2.6-4.7) mg/dL Magnesium (1.8-2.4) mg/dL Total Bilirubin (0.2-1.0) mg/dL AST (15-37) IU/L ALT (14-63) IU/L Alkaline Phosphatase (46-116) U/L Troponin I (0.000-0.056) ng/mL Total Protein (6.4-8.2) g/dL Albumin (3.4-5.0) g/dL Globulin (2.6-4.0) g/dL Albumin/Globulin Ratio (0.9-1.6) Lipase (73-393) U/L 02/24/20 02/24/20 02/24/20 Range/Units 14:25 17:18 17:18 WBC (4.0-11.0) K/uL RBC (4.30-5.90) M/uL Hgb (12.0-16.0) g/dL Hct (36.0-46.0) % MCV (80.0-98.0) fL MCH (27.0-32.0) pg MCHC (31.0-37.0) g/dL RDW Std Deviation (28.0-62.0) fl RDW Coeff of Rosa (11.0-15.0) % Plt Count (150-400) K/uL MPV (7.40-12.00) fL Add Manual Diff Neutrophils % (Manual) (48.0-80.0) % Band Neutrophils % % Lymphocytes % (Manual) (16.0-40.0) % Monocytes % (Manual) (0.0-15.0) % Eosinophils % (Manual) (0.0-7.0) % Nucleated RBC % /100WBC Absolute Seg Neuts (1.4-5.7) Band Neutrophils # Lymphocytes # (Manual) (0.6-2.4) Monocytes # (Manual) (0.0-0.8) Eosinophils # (Manual) (0.0-0.7) Nucleated RBCs # K/uL Vacuolated Monocytes Platelet Estimate D-Dimer, Quantitative (0.0-0.50) mg/L FEU Lactate 3.1 H* (0.20-2.00) mmol/L Sodium 134 L 133 L (136-145) mmol/L Potassium 3.5 3.4 L (3.5-5.1) mmol/L Chloride 99 101 (98-107) mmol/L Carbon Dioxide 18.6 L 17.6 L (21.0-32.0) mmol/L BUN 34 H 31 H (7.0-18.0) mg/dL Creatinine 2.5 H 1.9 H (0.6-1.0) mg/dL Est Cr Clr Drug Dosing 29.45 38.75 mL/min Estimated GFR (MDRD) 23.3 32.0 ml/min Glucose 98 75 (74-106) mg/dL Calcium 8.0 L 7.1 L (8.5-10.1) mg/dL Phosphorus 3.6 (2.6-4.7) mg/dL Magnesium 1.6 L (1.8-2.4) mg/dL Total Bilirubin 0.9 (0.2-1.0) mg/dL AST 40 H (15-37) IU/L ALT 44 (14-63) IU/L Alkaline Phosphatase 86 (46-116) U/L Troponin I < 0.050 (0.000-0.056) ng/mL Total Protein 5.5 L (6.4-8.2) g/dL Albumin 2.1 L (3.4-5.0) g/dL Globulin 3.4 (2.6-4.0) g/dL Albumin/Globulin Ratio 0.6 L (0.9-1.6) Lipase 42 L (73-393) U/L Result Diagrams: 02/24/20 14:25 02/24/20 17:18 Sepsis Event Note - Evaluation Sepsis Screening Result: Possible Sepsis Risk - Focused Exam Vital Signs: Vital Signs Temp Temp Pulse Resp BP BP BP 02/24/20 19:23 135 H 18 83/36 L 02/24/20 18:03 151 H 20 97/34 L 02/24/20 17:03 144 H 16 83/37 L 79/35 L 02/24/20 16:35 37.7 C 137 H 18 135/115 H 02/24/20 16:21 37.7 C 02/24/20 15:45 39.6 C H 138 H 24 H 101/48 L 02/24/20 14:11 38.2 C H 154 H 18 138/117 H Pulse Ox 02/24/20 19:23 97 02/24/20 18:03 98 02/24/20 17:03 96 02/24/20 16:35 97 02/24/20 16:21 02/24/20 15:45 96 02/24/20 14:11 99 Problem List Initiated/Reviewed/Updated: Yes Orders Last 24hrs: Active Orders 24 hr Category Date Time Status Patient Status [ADT] Routine ADT 02/24/20 19:21 Active Ambulate [RC] ASDIRECTED Care 02/24/20 19:21 Active EKG 12 Lead [EKG Documentation Completion] [RC] STAT Care 02/24/20 14:25 Active Intake and Output [RC] QSHIFT Care 02/24/20 19:22 Active May Shower [RC] ASDIRECTED Care 02/24/20 19:21 Active Oxygen Therapy [RC] PRN Care 02/24/20 19:21 Active Pulse Oximetry [RC] PRN Care 02/24/20 19:22 Active VTE/DVT Education [RC] PER UNIT ROUTINE Care 02/24/20 19:21 Active Vital Signs [RC] Q4H Care 02/24/20 19:21 Active Regular Diet [DIET] Diet 02/24/20 Dinner Active CBC WITH AUTO DIFF [HEME] DAILY Lab 02/25/20 05:11 Ordered CBC WITH AUTO DIFF [HEME] DAILY Lab 02/26/20 05:11 Ordered CBC WITH AUTO DIFF [HEME] DAILY Lab 02/27/20 05:11 Ordered COMPREHENSIVE METABOLIC PN,CMP [CHEM] DAILY Lab 02/25/20 05:11 Ordered COMPREHENSIVE METABOLIC PN,CMP [CHEM] DAILY Lab 02/26/20 05:11 Ordered COMPREHENSIVE METABOLIC PN,CMP [CHEM] DAILY Lab 02/27/20 05:11 Ordered CULTURE URINE [RM] Routine Lab 02/24/20 19:40 Ordered D-DIMER QUANTITATIVE [COAG] Routine Lab 02/25/20 05:00 Ordered LACTIC ACID,WHOLE BLOOD [BG] Routine Lab 02/25/20 05:00 Ordered MAGNESIUM [CHEM] DAILY Lab 02/25/20 05:11 Ordered MAGNESIUM [CHEM] DAILY Lab 02/26/20 05:11 Ordered MAGNESIUM [CHEM] DAILY Lab 02/27/20 05:11 Ordered UA W/MICROSCOPIC [URIN] Routine Lab 02/24/20 19:40 Ordered Acetaminophen [TylenoL] Med 02/24/20 19:21 Ordered 650 mg PO Q4H PRN Enoxaparin [Lovenox] Med 02/24/20 19:30 Ordered 40 mg SUBCUT Q24H Ondansetron [Zofran] Med 02/24/20 19:21 Ordered 4 mg IVPUSH Q4H PRN Piperacillin/Tazobactam [Zosyn] 2.25 gm Med 02/24/20 22:00 Ordered Sodium Chloride 0.9% [Normal Saline] 50 ml IV Q6H Resuscitation Status Routine Resus Stat 02/24/20 19:21 Ordered Medication Orders Acetaminophen (Tylenol) 650 mg PO Q4H PRN PRN Reason: Pain (Mild 1-3)/fever Enoxaparin Sodium (Lovenox) 40 mg SUBCUT Q24H SELENE Piperacillin Sod/Tazobactam (Sod 2.25 gm/ Sodium Chloride) 50 mls @ 100 mls/hr IV Q6H SELEEN Ondansetron HCl (Zofran) 4 mg IVPUSH Q4H PRN PRN Reason: Nausea/Vomiting Assessment/Plan Comment:: 25yo female 6d s/p , presenting with suspected sepsis from pylenonephritis. - continue to monitor vitals, fever of 38 to 39, tylenol PRN. Tachycardic to 150s, on tele - will give 500cc bolus now, increase maintenance fluid to 200cc/hr - continue zosyn q6hr, will wait for urine and blood cultures - monitor lactate q6hr. CBC, CMP, Mg in the AM
[2020-02-24] MEDS: Enoxaparin 40 MG/0.4 ML Syringe SUBCUT SCH (20:26)
[2020-02-24] MEDS: Acetaminophen 325 MG Tab PO PRN (20:27)
[2020-02-24] MEDS ORDERED: Sodium Chloride 0.9% 1,000 ML IV SCH ×3 (20:59→23:10)
[2020-02-24] MEDS ORDERED: Sodium Chloride 0.9% 500 ML IV ONE (23:02)
[2020-02-25] MEDS ORDERED: Sodium Chloride 0.9% 500 ML IV STA
[2020-02-25] MEDS: Acetaminophen 325 MG Tab PO PRN ×3 (00:22→15:24)
[2020-02-25] MEDS ORDERED: Sodium Chloride 0.9% 1,000 ML IV ONE ×2 (00:48→01:25)
[2020-02-25] MEDS ORDERED: Vancomycin 2 GM in Sodium Chloride 0.9% 500 ML IV ONE (01:00)
[2020-02-25] MEDS ORDERED: Meropenem 1 GM in Sodium Chloride 0.9% 100 ML IV ONE ×2 (01:23→03:30)
[2020-02-25] MEDS ORDERED: Piperacillin/Tazobactam 4.5 GM in Sodium Chloride 0.9% 100 ML IV SCH (01:30)
--- NOTE | 2020-02-25 01:43 | PCM.SN.2 ---
- Free Text/Narrative Note: 25 y/o female admitted for severe sepsis/septic shock, h/o recent NVD 5 days ago Possible source pyelonephritis Start broad spectrum antibiotics Obtain repeat blood cultures Start aggressive IV fluid hydration Trend lactate until normal IV PPI daily Clear diet for now May need central line if her BP continues to be soft
[2020-02-25] MEDS ORDERED: Piperacillin/Tazobactam 2.25 GM in Sodium Chloride 0.9% 50 ML IV SCH (02:00)
[2020-02-25] MEDS: Piperacillin/Tazobactam 4.5 GM in Sodium Chloride 0.9% 100 ML IV SCH ×2 (03:21→10:59)
[2020-02-25] MEDS: Lactated Ringers 1,000 ML IV SCH (04:29)
--- NOTE | 2020-02-25 04:34 | PN ---
THC Physician - Brief Progress [id number]/25/2020 04:24[facility] Center[facility] vasquez, TIGRE - BUSTERN ([facility]) - MWN ALYCESHARON CAMPOSBRIAN PeñaDate of Service 02/25/2020 04:24HPI/Event s of Note Brief eICU Admit [id number] yof with hx of uncomplicated deluivery 5 days ago Presents withO/ E Seen on cameraSinus tach 140s, NADDVT Prophylaxis: LOvenoxGI Prophylaxis: n/aIssuesSevere Sepsis? U TI (but 4-8 WBC in u/a)CT Abd / pelvis non-specifcImproved with fluids - continue PRNAbx - broadLacta te droppingFollow/ admitted by OBCase reviewed with bedside teamCall with questionsWill followInterve ntions Major-Infection - evaluation and management, Sepsis - evaluation and management
[2020-02-25 06:19] LABS: CARBON DIOXIDE,CO2 16.6 mmol/L (21.0-32.0); POTASSIUM,K 3.3 mmol/L (3.5-5.1)
[2020-02-25] MEDS: Pantoprazole 40 MG in Sodium Chloride 0.9% 10 ML IV SCH (08:03)
[2020-02-25] MEDS: Potassium Chloride 10% 20 MEQ/15 ML Soln 30 ML UD Cup PO SCH ×2 (08:06→15:24)
[2020-02-25] MEDS ORDERED: Lactated Ringers 1,000 ML IV ONE (09:44)
--- NOTE | 2020-02-25 09:56 | PN ---
THC Physician - Brief Progress [id number]/25/2020 09:53[facility] Antonia arevalo, TIGRE - BUSTERN ([facility]Ram[facility]) - MWN DONALD SHARONBRIAN PeñaDate of Service 02/25/2020 09:53HPI/Event s of Note eICU Progress NoteSeptic shock of unclear etiology, possible colitis/enteritis?MAP remains <65LA clearedHR improvedAKI resovingeICU Recommendations:1l bolus LRChange NS infusion to LR to avoid hyperchloremic NAGMABP goal SBP>90 as patient is meeting end perfusion markers at that target and MA P is being driven down by low diastolicThank you for allowing us to participate in the care of your p atient. Critical care; 35 minutes total evaluation time Interventions Major-Infection - evaluation an d management, Sepsis - evaluation and management, Shock - evaluation and managementElectronically Sig enrique by: ANNELIESE RIVERA) on 02/25/2020 09:55
[2020-02-25] MEDS ORDERED: methylPREDNISolone Sodium Succinate 40 MG/1 ML SDV IVPUSH ONE (11:34)
[2020-02-25] MEDS ORDERED: diphenhydrAMINE 50 MG/ML SDV IVPUSH ONE ×2 (11:34→14:46)
[2020-02-25] MEDS ORDERED: Magnesium Sulfate/Water 2 GM/50 ML BAG IV ONE (13:51)
[2020-02-25] MEDS ORDERED: methylPREDNISolone Sodium Succinate 125 MG/2 ML SDV IVPUSH ONE (14:45)
[2020-02-25] MEDS ORDERED: Famotidine 20 MG/2 ML SDV IVPUSH ONE (14:45)
--- NOTE | 2020-02-25 14:56 | PCM.PN ---
- General Info Date of Service: 02/25/20 - Patient Data Vitals - Most Recent: Last Vital Signs Temp 100.4 F 02/25/20 12:00 Pulse 142 H 02/25/20 01:03 Resp 19 02/25/20 14:00 BP 97/39 L 02/25/20 14:00 Pulse Ox 94 L 02/25/20 14:00 Weight - Most Recent: 197 lb 6.4 oz I&O - Last 24 Hours: Intake & Output 02/24/20 02/25/20 02/25/20 22:59 06:59 14:59 Intake Total 6990 Output Total 1860 Balance 5130 Lab Results Last 24 Hours: Laboratory Results - last 24 hr 02/24/20 02/24/20 02/24/20 Range/Units 14:01 14:25 14:25 WBC (4.0-11.0) K/uL RBC (4.30-5.90) M/uL Hgb (12.0-16.0) g/dL Hct (36.0-46.0) % MCV (80.0-98.0) fL MCH (27.0-32.0) pg MCHC (31.0-37.0) g/dL RDW Std Deviation (28.0-62.0) fl RDW Coeff of Rosa (11.0-15.0) % Plt Count (150-400) K/uL MPV (7.40-12.00) fL Add Manual Diff Neutrophils % (Manual) 41 L (48.0-80.0) % Band Neutrophils % 54 % Lymphocytes % (Manual) 1 L (16.0-40.0) % Monocytes % (Manual) 2 (0.0-15.0) % Eosinophils % (Manual) 2 (0.0-7.0) % Nucleated RBC % /100WBC Absolute Seg Neuts 4.6 (1.4-5.7) Band Neutrophils # 6.0 Lymphocytes # (Manual) 0.1 L (0.6-2.4) Monocytes # (Manual) 0.2 (0.0-0.8) Eosinophils # (Manual) 0.2 (0.0-0.7) Nucleated RBCs # K/uL Vacuolated Monocytes 2+ MODERATE Platelet Estimate D-Dimer, Quantitative > 35.20 H (0.0-0.50) mg/L FEU Lactate (0.20-2.00) mmol/L Sodium (136-145) mmol/L Potassium (3.5-5.1) mmol/L Chloride (98-107) mmol/L Carbon Dioxide (21.0-32.0) mmol/L BUN (7.0-18.0) mg/dL Creatinine (0.6-1.0) mg/dL Est Cr Clr Drug Dosing mL/min Estimated GFR (MDRD) ml/min Glucose (74-106) mg/dL Calcium (8.5-10.1) mg/dL Phosphorus (2.6-4.7) mg/dL Magnesium (1.8-2.4) mg/dL Total Bilirubin (0.2-1.0) mg/dL AST (15-37) IU/L ALT (14-63) IU/L Alkaline Phosphatase (46-116) U/L Troponin I (0.000-0.056) ng/mL Total Protein (6.4-8.2) g/dL Albumin (3.4-5.0) g/dL Globulin (2.6-4.0) g/dL Albumin/Globulin Ratio (0.9-1.6) Lipase (73-393) U/L Urine Color YELLOW Urine Appearance CLOUDY Urine pH 5.0 (5.0-8.0) Ur Specific [place] >= 1.030 (1.001-1.035) Urine Protein 30 H (NEGATIVE) mg/dL Urine Glucose (UA) NEGATIVE (NEGATIVE) mg/dL Urine Ketones TRACE H (NEGATIVE) mg/dL Urine Occult Blood MODERATE H (NEGATIVE) Urine Nitrite POSITIVE H (NEGATIVE) Urine Bilirubin MODERATE H (NEGATIVE) Urine Ictotest NEGATIVE Urine Urobilinogen 1.0 (<2.0) EU/dL Ur Leukocyte Esterase TRACE H (NEGATIVE) Urine RBC 1-5 (0-2/HPF) Urine WBC 4-8 (0-5/HPF) Ur Epithelial Cells FEW (NONE-FEW) Urine Bacteria 3+ H (NEGATIVE) 02/24/20 02/24/20 02/24/20 Range/Units 14:25 17:18 17:18 WBC (4.0-11.0) K/uL RBC (4.30-5.90) M/uL Hgb (12.0-16.0) g/dL Hct (36.0-46.0) % MCV (80.0-98.0) fL MCH (27.0-32.0) pg MCHC (31.0-37.0) g/dL RDW Std Deviation (28.0-62.0) fl RDW Coeff of Rosa (11.0-15.0) % Plt Count (150-400) K/uL MPV (7.40-12.00) fL Add Manual Diff Neutrophils % (Manual) (48.0-80.0) % Band Neutrophils % % Lymphocytes % (Manual) (16.0-40.0) % Monocytes % (Manual) (0.0-15.0) % Eosinophils % (Manual) (0.0-7.0) % Nucleated RBC % /100WBC Absolute Seg Neuts (1.4-5.7) Band Neutrophils # Lymphocytes # (Manual) (0.6-2.4) Monocytes # (Manual) (0.0-0.8) Eosinophils # (Manual) (0.0-0.7) Nucleated RBCs # K/uL Vacuolated Monocytes Platelet Estimate D-Dimer, Quantitative (0.0-0.50) mg/L FEU Lactate 3.1 H* (0.20-2.00) mmol/L Sodium 134 L 133 L (136-145) mmol/L Potassium 3.5 3.4 L (3.5-5.1) mmol/L Chloride 99 101 (98-107) mmol/L Carbon Dioxide 18.6 L 17.6 L (21.0-32.0) mmol/L BUN 34 H 31 H (7.0-18.0) mg/dL Creatinine 2.5 H 1.9 H (0.6-1.0) mg/dL Est Cr Clr Drug Dosing 29.45 38.75 mL/min Estimated GFR (MDRD) 23.3 32.0 ml/min Glucose 98 75 (74-106) mg/dL Calcium 8.0 L 7.1 L (8.5-10.1) mg/dL Phosphorus 3.6 (2.6-4.7) mg/dL Magnesium 1.6 L (1.8-2.4) mg/dL Total Bilirubin 0.9 (0.2-1.0) mg/dL AST 40 H (15-37) IU/L ALT 44 (14-63) IU/L Alkaline Phosphatase 86 (46-116) U/L Troponin I < 0.050 (0.000-0.056) ng/mL Total Protein 5.5 L (6.4-8.2) g/dL Albumin 2.1 L (3.4-5.0) g/dL Globulin 3.4 (2.6-4.0) g/dL Albumin/Globulin Ratio 0.6 L (0.9-1.6) Lipase 42 L (73-393) U/L Urine Color Urine Appearance Urine pH (5.0-8.0) Ur Specific [place] (1.001-1.035) Urine Protein (NEGATIVE) mg/dL Urine Glucose (UA) (NEGATIVE) mg/dL Urine Ketones (NEGATIVE) mg/dL Urine Occult Blood (NEGATIVE) Urine Nitrite (NEGATIVE) Urine Bilirubin (NEGATIVE) Urine Ictotest Urine Urobilinogen (<2.0) EU/dL Ur Leukocyte Esterase (NEGATIVE) Urine RBC (0-2/HPF) Urine WBC (0-5/HPF) Ur Epithelial Cells (NONE-FEW) Urine Bacteria (NEGATIVE) 02/24/20 02/25/20 02/25/20 Range/Units 21:46 03:03 05:40 WBC 7.59 (4.0-11.0) K/uL RBC 3.44 L (4.30-5.90) M/uL Hgb 9.8 L (12.0-16.0) g/dL Hct 29.1 L (36.0-46.0) % MCV 84.6 (80.0-98.0) fL MCH 28.5 (27.0-32.0) pg MCHC 33.7 (31.0-37.0) g/dL RDW Std Deviation 42.6 (28.0-62.0) fl RDW Coeff of Rosa 14 (11.0-15.0) % Plt Count 97 L (150-400) K/uL MPV 10.30 (7.40-12.00) fL Add Manual Diff YES Neutrophils % (Manual) 36 L (48.0-80.0) % Band Neutrophils % 57 % Lymphocytes % (Manual) 1 L (16.0-40.0) % Monocytes % (Manual) 3 (0.0-15.0) % Eosinophils % (Manual) 3 (0.0-7.0) % Nucleated RBC % 0.0 /100WBC Absolute Seg Neuts 2.7 (1.4-5.7) Band Neutrophils # 4.3 Lymphocytes # (Manual) 0.1 L (0.6-2.4) Monocytes # (Manual) 0.2 (0.0-0.8) Eosinophils # (Manual) 0.2 (0.0-0.7) Nucleated RBCs # 0 K/uL Vacuolated Monocytes Platelet Estimate D-Dimer, Quantitative (0.0-0.50) mg/L FEU Lactate 4.8 H* 2.5 H* (0.20-2.00) mmol/L Sodium (136-145) mmol/L Potassium (3.5-5.1) mmol/L Chloride (98-107) mmol/L Carbon Dioxide (21.0-32.0) mmol/L BUN (7.0-18.0) mg/dL Creatinine (0.6-1.0) mg/dL Est Cr Clr Drug Dosing mL/min Estimated GFR (MDRD) ml/min Glucose (74-106) mg/dL Calcium (8.5-10.1) mg/dL Phosphorus (2.6-4.7) mg/dL Magnesium (1.8-2.4) mg/dL Total Bilirubin (0.2-1.0) mg/dL AST (15-37) IU/L ALT (14-63) IU/L Alkaline Phosphatase (46-116) U/L Troponin I (0.000-0.056) ng/mL Total Protein (6.4-8.2) g/dL Albumin (3.4-5.0) g/dL Globulin (2.6-4.0) g/dL Albumin/Globulin Ratio (0.9-1.6) Lipase (73-393) U/L Urine Color Urine Appearance Urine pH (5.0-8.0) Ur Specific [place] (1.001-1.035) Urine Protein (NEGATIVE) mg/dL Urine Glucose (UA) (NEGATIVE) mg/dL Urine Ketones (NEGATIVE) mg/dL Urine Occult Blood (NEGATIVE) Urine Nitrite (NEGATIVE) Urine Bilirubin (NEGATIVE) Urine Ictotest Urine Urobilinogen (<2.0) EU/dL Ur Leukocyte Esterase (NEGATIVE) Urine RBC (0-2/HPF) Urine WBC (0-5/HPF) Ur Epithelial Cells (NONE-FEW) Urine Bacteria (NEGATIVE) 02/25/20 02/25/20 02/25/20 Range/Units 05:40 05:40 05:40 WBC (4.0-11.0) K/uL RBC (4.30-5.90) M/uL Hgb (12.0-16.0) g/dL Hct (36.0-46.0) % MCV (80.0-98.0) fL MCH (27.0-32.0) pg MCHC (31.0-37.0) g/dL RDW Std Deviation (28.0-62.0) fl RDW Coeff of Rosa (11.0-15.0) % Plt Count (150-400) K/uL MPV (7.40-12.00) fL Add Manual Diff Neutrophils % (Manual) (48.0-80.0) % Band Neutrophils % % Lymphocytes % (Manual) (16.0-40.0) % Monocytes % (Manual) (0.0-15.0) % Eosinophils % (Manual) (0.0-7.0) % Nucleated RBC % /100WBC Absolute Seg Neuts (1.4-5.7) Band Neutrophils # Lymphocytes # (Manual) (0.6-2.4) Monocytes # (Manual) (0.0-0.8) Eosinophils # (Manual) (0.0-0.7) Nucleated RBCs # K/uL Vacuolated Monocytes Platelet Estimate D-Dimer, Quantitative > 35.20 H (0.0-0.50) mg/L FEU Lactate 2.1 H* (0.20-2.00) mmol/L Sodium 134 L (136-145) mmol/L Potassium 3.3 L (3.5-5.1) mmol/L Chloride 103 (98-107) mmol/L Carbon Dioxide 16.6 L (21.0-32.0) mmol/L BUN 21 H (7.0-18.0) mg/dL Creatinine 1.4 H (0.6-1.0) mg/dL Est Cr Clr Drug Dosing 52.58 mL/min Estimated GFR (MDRD) 45.5 ml/min Glucose 73 L (74-106) mg/dL Calcium 7.0 L (8.5-10.1) mg/dL Phosphorus (2.6-4.7) mg/dL Magnesium 1.7 L (1.8-2.4) mg/dL Total Bilirubin 0.9 (0.2-1.0) mg/dL AST 30 (15-37) IU/L ALT 37 (14-63) IU/L Alkaline Phosphatase 68 (46-116) U/L Troponin I (0.000-0.056) ng/mL Total Protein 4.2 L (6.4-8.2) g/dL Albumin 1.5 L (3.4-5.0) g/dL Globulin 2.7 (2.6-4.0) g/dL Albumin/Globulin Ratio 0.6 L (0.9-1.6) Lipase (73-393) U/L Urine Color Urine Appearance Urine pH (5.0-8.0) Ur Specific [place] (1.001-1.035) Urine Protein (NEGATIVE) mg/dL Urine Glucose (UA) (NEGATIVE) mg/dL Urine Ketones (NEGATIVE) mg/dL Urine Occult Blood (NEGATIVE) Urine Nitrite (NEGATIVE) Urine Bilirubin (NEGATIVE) Urine Ictotest Urine Urobilinogen (<2.0) EU/dL Ur Leukocyte Esterase (NEGATIVE) Urine RBC (0-2/HPF) Urine WBC (0-5/HPF) Ur Epithelial Cells (NONE-FEW) Urine Bacteria (NEGATIVE) 02/24/ Range/Units 09:20 WBC (4.0-11.0) K/uL RBC (4.30-5.90) M/uL Hgb (12.0-16.0) g/dL Hct (36.0-46.0) % MCV (80.0-98.0) fL MCH (27.0-32.0) pg MCHC (31.0-37.0) g/dL RDW Std Deviation (28.0-62.0) fl RDW Coeff of Rosa (11.0-15.0) % Plt Count (150-400) K/uL MPV (7.40-12.00) fL Add Manual Diff Neutrophils % (Manual) (48.0-80.0) % Band Neutrophils % % Lymphocytes % (Manual) (16.0-40.0) % Monocytes % (Manual) (0.0-15.0) % Eosinophils % (Manual) (0.0-7.0) % Nucleated RBC % /100WBC Absolute Seg Neuts (1.4-5.7) Band Neutrophils # Lymphocytes # (Manual) (0.6-2.4) Monocytes # (Manual) (0.0-0.8) Eosinophils # (Manual) (0.0-0.7) Nucleated RBCs # K/uL Vacuolated Monocytes Platelet Estimate D-Dimer, Quantitative (0.0-0.50) mg/L FEU Lactate 1.9 (0.20-2.00) mmol/L Sodium (136-145) mmol/L Potassium (3.5-5.1) mmol/L Chloride (98-107) mmol/L Carbon Dioxide (21.0-32.0) mmol/L BUN (7.0-18.0) mg/dL Creatinine (0.6-1.0) mg/dL Est Cr Clr Drug Dosing mL/min Estimated GFR (MDRD) ml/min Glucose (74-106) mg/dL Calcium (8.5-10.1) mg/dL Phosphorus (2.6-4.7) mg/dL Magnesium (1.8-2.4) mg/dL Total Bilirubin (0.2-1.0) mg/dL AST (15-37) IU/L ALT (14-63) IU/L Alkaline Phosphatase (46-116) U/L Troponin I (0.000-0.056) ng/mL Total Protein (6.4-8.2) g/dL Albumin (3.4-5.0) g/dL Globulin (2.6-4.0) g/dL Albumin/Globulin Ratio (0.9-1.6) Lipase (73-393) U/L Urine Color Urine Appearance Urine pH (5.0-8.0) Ur Specific [place] (1.001-1.035) Urine Protein (NEGATIVE) mg/dL Urine Glucose (UA) (NEGATIVE) mg/dL Urine Ketones (NEGATIVE) mg/dL Urine Occult Blood (NEGATIVE) Urine Nitrite (NEGATIVE) Urine Bilirubin (NEGATIVE) Urine Ictotest Urine Urobilinogen (<2.0) EU/dL Ur Leukocyte Esterase (NEGATIVE) Urine RBC (0-2/HPF) Urine WBC (0-5/HPF) Ur Epithelial Cells (NONE-FEW) Urine Bacteria (NEGATIVE) Wilberto Results Last 24 Hours: Microbiology 02/24/20 14:01 Urine Culture - Preliminary Urine, Voided NO GROWTH AFTER 1 DAY Med Orders - Current: Current Medications Acetaminophen (Tylenol) 650 mg PO Q4H PRN PRN Reason: Pain (Mild 1-3)/fever Last Admin: 02/25/20 05:59 Dose: 650 mg Documented by: Acidophilus/Pectin (Acidophilus/Pectin, [place]) 1 tab PO DAILY [facility] Enoxaparin Sodium (Lovenox) 40 mg SUBCUT Q24H [facility] Last Admin: 02/24/20 20:26 Dose: 40 mg Documented by: Pantoprazole Sodium 40 mg/ (Sodium Chloride) 10 mls @ 300 mls/hr IV DAILY [facility] Last Admin: 02/25/20 08:03 Dose: 300 mls/hr Documented by: Lactated Ringer's (Ringers, Lactated) 1,000 mls @ 200 mls/hr IV ASDIRECTED [facility] Last Admin: 02/25/20 04:29 Dose: 200 mls/hr Documented by: Linezolid 600 mg/ Premix 300 mls @ 300 mls/hr IV Q12H [facility] Ondansetron HCl (Zofran) 4 mg IVPUSH Q4H PRN PRN Reason: Nausea/Vomiting Last Admin: 02/25/20 09:48 Dose: 4 mg Documented by: Discontinued Medications Acetaminophen (Tylenol Extra Strength) 1,000 mg PO ONETIME ONE Stop: 02/24/20 15:48 Last Admin: 02/24/20 15:51 Dose: 1,000 mg Documented by: Acetaminophen (Tylenol Extra Strength) Confirm Administered Dose 1,000 mg .ROUTE .STK-MED ONE Stop: 02/24/20 15:49 Last Admin: 02/24/20 15:55 Dose: Not Given Documented by: Calcium Gluconate (Calcium Gluconate) 1 gm IVPUSH ONETIME ONE Stop: 02/24/20 18:08 Last Admin: 02/24/20 18:25 Dose: 1 gm Documented by: Diphenhydramine HCl (Benadryl) 25 mg IVPUSH ONETIME ONE Stop: 02/25/20 11:35 Last Admin: 02/25/20 11:57 Dose: 25 mg Documented by: Diphenhydramine HCl (Benadryl) 50 mg IVPUSH ONETIME ONE Stop: 02/25/20 14:47 Famotidine (Pepcid) 20 mg IVPUSH ONETIME ONE Stop: 02/25/20 14:46 Sodium Chloride (Normal Saline) 1,000 mls @ 999 mls/hr IV .BOLUS ONE Stop: 02/24/20 15:22 Last Admin: 02/24/20 14:26 Dose: 999 mls/hr Documented by: Sodium Chloride (Normal Saline) 1,000 mls @ 1,000 mls/hr IV .Bolus ONE Stop: 02/24/20 16:46 Last Admin: 02/24/20 15:52 Dose: 1,000 mls/hr Documented by: Sodium Chloride (Normal Saline) 1,000 mls @ 999 mls/hr IV .Bolus ONE Stop: 02/24/20 18:06 Last Admin: 02/24/20 17:08 Dose: 999 mls/hr Documented by: Magnesium Sulfate (Magnesium Sulfate In Water Premix) 1 gm in 25 mls @ 50 mls/hr IV ONETIME ONE Stop: 02/24/20 18:37 Last Admin: 02/24/20 18:25 Dose: 50 mls/hr Documented by: Piperacillin Sod/Tazobactam (Sod 3.375 gm/ Sodium Chloride) 50 mls @ 100 mls/hr IV ONETIME ONE Stop: 02/24/20 18:47 Last Admin: 02/24/20 19:27 Dose: 100 mls/hr Documented by: Piperacillin Sod/Tazobactam (Sod 2.25 gm/ Sodium Chloride) 50 mls @ 100 mls/hr IV Q6H [facility] Sodium Chloride (Normal Saline) 1,000 mls @ 125 mls/hr IV ASDIRECTED [facility] Sodium Chloride (Normal Saline) 1,000 mls @ 125 mls/hr IV ASDIRECTED [facility] Last Admin: 02/24/20 21:02 Dose: 125 mls/hr Documented by: Sodium Chloride (Normal Saline) 500 mls @ 999 mls/hr IV BOLUS ONE Stop: 02/24/20 23:32 Last Admin: 02/24/20 23:12 Dose: 999 mls/hr Documented by: Sodium Chloride (Normal Saline) 1,000 mls @ 200 mls/hr IV ASDIRECTED [facility] Last Infusion: 02/25/20 00:10 Dose: 0 mls/hr Documented by: Sodium Chloride (Normal Saline) 500 mls @ 999 mls/hr IV NOW STA Stop: 02/25/20 00:30 Last Admin: 02/25/20 00:10 Dose: 999 mls/hr Documented by: Sodium Chloride (Normal Saline) 1,000 mls @ 999 mls/hr IV BOLUS ONE Stop: 02/25/20 01:48 Last Admin: 02/25/20 01:05 Dose: 999 mls/hr Documented by: Vancomycin HCl 2 gm/ Sodium (Chloride) 500 mls @ 333 mls/hr IV NOW ONE Stop: 02/25/20 02:30 Last Admin: 02/25/20 02:25 Dose: 333 mls/hr Documented by: Piperacillin Sod/Tazobactam (Sod 4.5 gm/ Sodium Chloride) 100 mls @ 100 mls/hr IV Q8H [facility] Last Admin: 02/25/20 04:53 Dose: Not Given Documented by: Meropenem 1 gm/ Sodium (Chloride) 100 mls @ 200 mls/hr IV ONETIME ONE Stop: 02/25/20 01:52 Last Admin: 02/25/20 02:37 Dose: Not Given Documented by: Sodium Chloride (Normal Saline) 1,000 mls @ 999 mls/hr IV BOLUS ONE Stop: 02/25/20 02:25 Last Admin: 02/25/20 02:12 Dose: 999 mls/hr Documented by: Meropenem 1 gm/ Sodium (Chloride) 100 mls @ 200 mls/hr IV ONETIME ONE Stop: 02/25/20 03:59 Last Admin: 02/25/20 04:03 Dose: 200 mls/hr Documented by: Piperacillin Sod/Tazobactam (Sod 4.5 gm/ Sodium Chloride) 100 mls @ 100 mls/hr IV Q8H [facility] Last Admin: 02/25/20 10:59 Dose: 100 mls/hr Documented by: Vancomycin HCl 1.25 gm/ Sodium (Chloride) 250 mls @ 166.667 mls/hr IV Q12H [facility] Norepinephrine Bitartrate (Norepinephr-0.9% Nacl 4 Mg/250) 4 mg in 250 mls @ 7.5 mls/hr IV TITRATE [facility]; Protocol Lactated Ringer's (Ringers, Lactated) 1,000 mls @ 999 mls/hr IV .BOLUS ONE Stop: 02/25/20 10:44 Last Admin: 02/25/20 10:04 Dose: 999 mls/hr Documented by: Magnesium Sulfate (Magnesium Sulfate In Water Premix) 2 gm in 50 mls @ 50 mls/hr IV ONETIME ONE Stop: 02/25/20 14:50 Iopamidol (Isovue Multipack-370 (76%)) 100 ml IVPUSH ONETIME STA Stop: 02/24/20 16:58 Last Admin: 02/24/20 16:57 Dose: 100 ml Documented by: Methylprednisolone Sodium Succinate (Solu-Medrol) 40 mg IVPUSH ONETIME ONE Stop: 02/25/20 11:35 Last Admin: 02/25/20 12:00 Dose: 40 mg Documented by: Methylprednisolone Sodium Succinate (Solu-Medrol) 125 mg IVPUSH ONETIME ONE Stop: 02/25/20 14:46 Potassium Chloride (Potassium Chloride) 40 meq PO Q4H [facility] Stop: 02/25/20 11:01 Last Admin: 02/25/20 08:06 Dose: 40 meq Documented by: Sodium Chloride (Normal Saline) 1,000 ml IV NOW STA Stop: 02/25/20 06:06 Last Admin: 02/25/20 06:30 Dose: 1,000 ml Documented by: Sepsis Event Note - Evaluation Sepsis Screening Result: Sepsis Risk - Focused Exam Vital Signs: Vital Signs Temp Temp Resp BP Pulse Ox 02/25/20 14:00 19 97/39 L 94 L 02/25/20 13:33 21 H 103/44 L 93 L 02/25/20 13:00 25 H 97/49 L 95 02/25/20 12:39 25 H 91/58 L 96 02/25/20 12:00 100.4 F 24 H 90/51 L 94 L 02/25/20 10:54 24 H 91/34 L 93 L 02/25/20 10:33 23 H 90/38 L 94 L 02/25/20 10:00 22 H 97/41 L 93 L 02/25/20 09:00 20 91/42 L 95 02/25/20 08:00 101.5 F H 19 103/37 L 93 L 02/25/20 07:00 21 H 93/37 L 95 02/25/20 06:00 102.2 F H 28 H 94/43 L 97 02/25/20 05:59 103.2 F H 02/25/20 05:00 102.9 F H 33 H 105/36 L 94 L 02/25/20 04:00 103.3 F H 24 H 97/45 L 99 - My Orders Last 24 Hours: My Active Orders 02/25/20 Lunch Clear Liquid Diet [DIET] 02/25/20 14:00 Acidophilus/Pectin, [place] 1 tab PO DAILY - Plan Plan:: 25yo female 6d s/p , presenting with suspected sepsis from pylenonephritis. - continue to monitor vitals, fever of 38 to 39, tylenol PRN. Tachycardic to 150s, on tele - will give 500cc bolus now, increase maintenance fluid to 200cc/hr - continue zosyn q6hr, will wait for urine and blood cultures - monitor lactate q6hr. CBC, CMP, Mg in the AM
--- NOTE | 2020-02-25 14:57 | PCM.PN ---
- General Info Date of Service: 02/25/20 Subjective Update: Patient had worsening of sepsis overnight, she was hypotensive 80s/30s and tachycardic 130-150s. Continue to be febrile. Lactate was also became elevated at 4.8. She reports was feeling tired, otherwise no complaints. She did not respond to initial 2L fluid bolus and zosyn. She was transferred to ICU due to worsening status after I evaluated her, internal medicine was consulted. She received additional 6L of fluids, she was started on linezoid and meropenum. She then began to improve, BP was 90s/30-40s, HR 110-130s. Lactate trended down to normal this AM. DUNCAN has also significantly improved. Patient also started developing a full body rash this AM after receiving zosyn, concerning for PCN allergy, therefore zosyn was stopped. She was given solumedrol and benadryl IV. - Review of Systems General: Reports: Fever, Fatigue, Malaise, Chills HEENT: Reports: Sore Throat Pulmonary: Reports: No Symptoms Cardiovascular: Reports: No Symptoms Gastrointestinal: Reports: No Symptoms Genitourinary: Reports: No Symptoms Musculoskeletal: Reports: No Symptoms Skin: Reports: No Symptoms Neurological: Reports: No Symptoms Psychiatric: Reports: No Symptoms - Patient Data Vitals - Most Recent: Last Vital Signs Temp 38.0 C 02/25/20 12:00 Pulse 142 H 02/25/20 01:03 Resp 19 02/25/20 14:00 BP 97/39 L 02/25/20 14:00 Pulse Ox 94 L 02/25/20 14:00 Weight - Most Recent: 197 lb 6.4 oz I&O - Last 24 Hours: Intake & Output 02/24/20 02/25/20 02/25/20 22:59 06:59 14:59 Intake Total 6990 Output Total 1860 Balance 5130 Lab Results Last 24 Hours: Laboratory Results - last 24 hr 02/24/20 02/24/20 02/24/20 Range/Units 14:01 14:25 14:25 WBC (4.0-11.0) K/uL RBC (4.30-5.90) M/uL Hgb (12.0-16.0) g/dL Hct (36.0-46.0) % MCV (80.0-98.0) fL MCH (27.0-32.0) pg MCHC (31.0-37.0) g/dL RDW Std Deviation (28.0-62.0) fl RDW Coeff of Rosa (11.0-15.0) % Plt Count (150-400) K/uL MPV (7.40-12.00) fL Add Manual Diff Neutrophils % (Manual) 41 L (48.0-80.0) % Band Neutrophils % 54 % Lymphocytes % (Manual) 1 L (16.0-40.0) % Monocytes % (Manual) 2 (0.0-15.0) % Eosinophils % (Manual) 2 (0.0-7.0) % Nucleated RBC % /100WBC Absolute Seg Neuts 4.6 (1.4-5.7) Band Neutrophils # 6.0 Lymphocytes # (Manual) 0.1 L (0.6-2.4) Monocytes # (Manual) 0.2 (0.0-0.8) Eosinophils # (Manual) 0.2 (0.0-0.7) Nucleated RBCs # K/uL Vacuolated Monocytes 2+ MODERATE Platelet Estimate D-Dimer, Quantitative > 35.20 H (0.0-0.50) mg/L FEU Lactate (0.20-2.00) mmol/L Sodium (136-145) mmol/L Potassium (3.5-5.1) mmol/L Chloride (98-107) mmol/L Carbon Dioxide (21.0-32.0) mmol/L BUN (7.0-18.0) mg/dL Creatinine (0.6-1.0) mg/dL Est Cr Clr Drug Dosing mL/min Estimated GFR (MDRD) ml/min Glucose (74-106) mg/dL Calcium (8.5-10.1) mg/dL Phosphorus (2.6-4.7) mg/dL Magnesium (1.8-2.4) mg/dL Total Bilirubin (0.2-1.0) mg/dL AST (15-37) IU/L ALT (14-63) IU/L Alkaline Phosphatase (46-116) U/L Troponin I (0.000-0.056) ng/mL Total Protein (6.4-8.2) g/dL Albumin (3.4-5.0) g/dL Globulin (2.6-4.0) g/dL Albumin/Globulin Ratio (0.9-1.6) Lipase (73-393) U/L Urine Color YELLOW Urine Appearance CLOUDY Urine pH 5.0 (5.0-8.0) Ur Specific [place] >= 1.030 (1.001-1.035) Urine Protein 30 H (NEGATIVE) mg/dL Urine Glucose (UA) NEGATIVE (NEGATIVE) mg/dL Urine Ketones TRACE H (NEGATIVE) mg/dL Urine Occult Blood MODERATE H (NEGATIVE) Urine Nitrite POSITIVE H (NEGATIVE) Urine Bilirubin MODERATE H (NEGATIVE) Urine Ictotest NEGATIVE Urine Urobilinogen 1.0 (<2.0) EU/dL Ur Leukocyte Esterase TRACE H (NEGATIVE) Urine RBC 1-5 (0-2/HPF) Urine WBC 4-8 (0-5/HPF) Ur Epithelial Cells FEW (NONE-FEW) Urine Bacteria 3+ H (NEGATIVE) 02/24/20 02/24/20 02/24/20 Range/Units 14:25 17:18 17:18 WBC (4.0-11.0) K/uL RBC (4.30-5.90) M/uL Hgb (12.0-16.0) g/dL Hct (36.0-46.0) % MCV (80.0-98.0) fL MCH (27.0-32.0) pg MCHC (31.0-37.0) g/dL RDW Std Deviation (28.0-62.0) fl RDW Coeff of Rosa (11.0-15.0) % Plt Count (150-400) K/uL MPV (7.40-12.00) fL Add Manual Diff Neutrophils % (Manual) (48.0-80.0) % Band Neutrophils % % Lymphocytes % (Manual) (16.0-40.0) % Monocytes % (Manual) (0.0-15.0) % Eosinophils % (Manual) (0.0-7.0) % Nucleated RBC % /100WBC Absolute Seg Neuts (1.4-5.7) Band Neutrophils # Lymphocytes # (Manual) (0.6-2.4) Monocytes # (Manual) (0.0-0.8) Eosinophils # (Manual) (0.0-0.7) Nucleated RBCs # K/uL Vacuolated Monocytes Platelet Estimate D-Dimer, Quantitative (0.0-0.50) mg/L FEU Lactate 3.1 H* (0.20-2.00) mmol/L Sodium 134 L 133 L (136-145) mmol/L Potassium 3.5 3.4 L (3.5-5.1) mmol/L Chloride 99 101 (98-107) mmol/L Carbon Dioxide 18.6 L 17.6 L (21.0-32.0) mmol/L BUN 34 H 31 H (7.0-18.0) mg/dL Creatinine 2.5 H 1.9 H (0.6-1.0) mg/dL Est Cr Clr Drug Dosing 29.45 38.75 mL/min Estimated GFR (MDRD) 23.3 32.0 ml/min Glucose 98 75 (74-106) mg/dL Calcium 8.0 L 7.1 L (8.5-10.1) mg/dL Phosphorus 3.6 (2.6-4.7) mg/dL Magnesium 1.6 L (1.8-2.4) mg/dL Total Bilirubin 0.9 (0.2-1.0) mg/dL AST 40 H (15-37) IU/L ALT 44 (14-63) IU/L Alkaline Phosphatase 86 (46-116) U/L Troponin I < 0.050 (0.000-0.056) ng/mL Total Protein 5.5 L (6.4-8.2) g/dL Albumin 2.1 L (3.4-5.0) g/dL Globulin 3.4 (2.6-4.0) g/dL Albumin/Globulin Ratio 0.6 L (0.9-1.6) Lipase 42 L (73-393) U/L Urine Color Urine Appearance Urine pH (5.0-8.0) Ur Specific [place] (1.001-1.035) Urine Protein (NEGATIVE) mg/dL Urine Glucose (UA) (NEGATIVE) mg/dL Urine Ketones (NEGATIVE) mg/dL Urine Occult Blood (NEGATIVE) Urine Nitrite (NEGATIVE) Urine Bilirubin (NEGATIVE) Urine Ictotest Urine Urobilinogen (<2.0) EU/dL Ur Leukocyte Esterase (NEGATIVE) Urine RBC (0-2/HPF) Urine WBC (0-5/HPF) Ur Epithelial Cells (NONE-FEW) Urine Bacteria (NEGATIVE) 02/24/20 02/25/20 02/25/20 Range/Units 21:46 03:03 05:40 WBC 7.59 (4.0-11.0) K/uL RBC 3.44 L (4.30-5.90) M/uL Hgb 9.8 L (12.0-16.0) g/dL Hct 29.1 L (36.0-46.0) % MCV 84.6 (80.0-98.0) fL MCH 28.5 (27.0-32.0) pg MCHC 33.7 (31.0-37.0) g/dL RDW Std Deviation 42.6 (28.0-62.0) fl RDW Coeff of Rosa 14 (11.0-15.0) % Plt Count 97 L (150-400) K/uL MPV 10.30 (7.40-12.00) fL Add Manual Diff YES Neutrophils % (Manual) 36 L (48.0-80.0) % Band Neutrophils % 57 % Lymphocytes % (Manual) 1 L (16.0-40.0) % Monocytes % (Manual) 3 (0.0-15.0) % Eosinophils % (Manual) 3 (0.0-7.0) % Nucleated RBC % 0.0 /100WBC Absolute Seg Neuts 2.7 (1.4-5.7) Band Neutrophils # 4.3 Lymphocytes # (Manual) 0.1 L (0.6-2.4) Monocytes # (Manual) 0.2 (0.0-0.8) Eosinophils # (Manual) 0.2 (0.0-0.7) Nucleated RBCs # 0 K/uL Vacuolated Monocytes Platelet Estimate D-Dimer, Quantitative (0.0-0.50) mg/L FEU Lactate 4.8 H* 2.5 H* (0.20-2.00) mmol/L Sodium (136-145) mmol/L Potassium (3.5-5.1) mmol/L Chloride (98-107) mmol/L Carbon Dioxide (21.0-32.0) mmol/L BUN (7.0-18.0) mg/dL Creatinine (0.6-1.0) mg/dL Est Cr Clr Drug Dosing mL/min Estimated GFR (MDRD) ml/min Glucose (74-106) mg/dL Calcium (8.5-10.1) mg/dL Phosphorus (2.6-4.7) mg/dL Magnesium (1.8-2.4) mg/dL Total Bilirubin (0.2-1.0) mg/dL AST (15-37) IU/L ALT (14-63) IU/L Alkaline Phosphatase (46-116) U/L Troponin I (0.000-0.056) ng/mL Total Protein (6.4-8.2) g/dL Albumin (3.4-5.0) g/dL Globulin (2.6-4.0) g/dL Albumin/Globulin Ratio (0.9-1.6) Lipase (73-393) U/L Urine Color Urine Appearance Urine pH (5.0-8.0) Ur Specific [place] (1.001-1.035) Urine Protein (NEGATIVE) mg/dL Urine Glucose (UA) (NEGATIVE) mg/dL Urine Ketones (NEGATIVE) mg/dL Urine Occult Blood (NEGATIVE) Urine Nitrite (NEGATIVE) Urine Bilirubin (NEGATIVE) Urine Ictotest Urine Urobilinogen (<2.0) EU/dL Ur Leukocyte Esterase (NEGATIVE) Urine RBC (0-2/HPF) Urine WBC (0-5/HPF) Ur Epithelial Cells (NONE-FEW) Urine Bacteria (NEGATIVE) 02/25/20 02/25/20 02/25/20 Range/Units 05:40 05:40 05:40 WBC (4.0-11.0) K/uL RBC (4.30-5.90) M/uL Hgb (12.0-16.0) g/dL Hct (36.0-46.0) % MCV (80.0-98.0) fL MCH (27.0-32.0) pg MCHC (31.0-37.0) g/dL RDW Std Deviation (28.0-62.0) fl RDW Coeff of Rosa (11.0-15.0) % Plt Count (150-400) K/uL MPV (7.40-12.00) fL Add Manual Diff Neutrophils % (Manual) (48.0-80.0) % Band Neutrophils % % Lymphocytes % (Manual) (16.0-40.0) % Monocytes % (Manual) (0.0-15.0) % Eosinophils % (Manual) (0.0-7.0) % Nucleated RBC % /100WBC Absolute Seg Neuts (1.4-5.7) Band Neutrophils # Lymphocytes # (Manual) (0.6-2.4) Monocytes # (Manual) (0.0-0.8) Eosinophils # (Manual) (0.0-0.7) Nucleated RBCs # K/uL Vacuolated Monocytes Platelet Estimate D-Dimer, Quantitative > 35.20 H (0.0-0.50) mg/L FEU Lactate 2.1 H* (0.20-2.00) mmol/L Sodium 134 L (136-145) mmol/L Potassium 3.3 L (3.5-5.1) mmol/L Chloride 103 (98-107) mmol/L Carbon Dioxide 16.6 L (21.0-32.0) mmol/L BUN 21 H (7.0-18.0) mg/dL Creatinine 1.4 H (0.6-1.0) mg/dL Est Cr Clr Drug Dosing 52.58 mL/min Estimated GFR (MDRD) 45.5 ml/min Glucose 73 L (74-106) mg/dL Calcium 7.0 L (8.5-10.1) mg/dL Phosphorus (2.6-4.7) mg/dL Magnesium 1.7 L (1.8-2.4) mg/dL Total Bilirubin 0.9 (0.2-1.0) mg/dL AST 30 (15-37) IU/L ALT 37 (14-63) IU/L Alkaline Phosphatase 68 (46-116) U/L Troponin I (0.000-0.056) ng/mL Total Protein 4.2 L (6.4-8.2) g/dL Albumin 1.5 L (3.4-5.0) g/dL Globulin 2.7 (2.6-4.0) g/dL Albumin/Globulin Ratio 0.6 L (0.9-1.6) Lipase (73-393) U/L Urine Color Urine Appearance Urine pH (5.0-8.0) Ur Specific [place] (1.001-1.035) Urine Protein (NEGATIVE) mg/dL Urine Glucose (UA) (NEGATIVE) mg/dL Urine Ketones (NEGATIVE) mg/dL Urine Occult Blood (NEGATIVE) Urine Nitrite (NEGATIVE) Urine Bilirubin (NEGATIVE) Urine Ictotest Urine Urobilinogen (<2.0) EU/dL Ur Leukocyte Esterase (NEGATIVE) Urine RBC (0-2/HPF) Urine WBC (0-5/HPF) Ur Epithelial Cells (NONE-FEW) Urine Bacteria (NEGATIVE) 02/25/20 Range/Units 09:20 WBC (4.0-11.0) K/uL RBC (4.30-5.90) M/uL Hgb (12.0-16.0) g/dL Hct (36.0-46.0) % MCV (80.0-98.0) fL MCH (27.0-32.0) pg MCHC (31.0-37.0) g/dL RDW Std Deviation (28.0-62.0) fl RDW Coeff of Rosa (11.0-15.0) % Plt Count (150-400) K/uL MPV (7.40-12.00) fL Add Manual Diff Neutrophils % (Manual) (48.0-80.0) % Band Neutrophils % % Lymphocytes % (Manual) (16.0-40.0) % Monocytes % (Manual) (0.0-15.0) % Eosinophils % (Manual) (0.0-7.0) % Nucleated RBC % /100WBC Absolute Seg Neuts (1.4-5.7) Band Neutrophils # Lymphocytes # (Manual) (0.6-2.4) Monocytes # (Manual) (0.0-0.8) Eosinophils # (Manual) (0.0-0.7) Nucleated RBCs # K/uL Vacuolated Monocytes Platelet Estimate D-Dimer, Quantitative (0.0-0.50) mg/L FEU Lactate 1.9 (0.20-2.00) mmol/L Sodium (136-145) mmol/L Potassium (3.5-5.1) mmol/L Chloride (98-107) mmol/L Carbon Dioxide (21.0-32.0) mmol/L BUN (7.0-18.0) mg/dL Creatinine (0.6-1.0) mg/dL Est Cr Clr Drug Dosing mL/min Estimated GFR (MDRD) ml/min Glucose (74-106) mg/dL Calcium (8.5-10.1) mg/dL Phosphorus (2.6-4.7) mg/dL Magnesium (1.8-2.4) mg/dL Total Bilirubin (0.2-1.0) mg/dL AST (15-37) IU/L ALT (14-63) IU/L Alkaline Phosphatase (46-116) U/L Troponin I (0.000-0.056) ng/mL Total Protein (6.4-8.2) g/dL Albumin (3.4-5.0) g/dL Globulin (2.6-4.0) g/dL Albumin/Globulin Ratio (0.9-1.6) Lipase (73-393) U/L Urine Color Urine Appearance Urine pH (5.0-8.0) Ur Specific [place] (1.001-1.035) Urine Protein (NEGATIVE) mg/dL Urine Glucose (UA) (NEGATIVE) mg/dL Urine Ketones (NEGATIVE) mg/dL Urine Occult Blood (NEGATIVE) Urine Nitrite (NEGATIVE) Urine Bilirubin (NEGATIVE) Urine Ictotest Urine Urobilinogen (<2.0) EU/dL Ur Leukocyte Esterase (NEGATIVE) Urine RBC (0-2/HPF) Urine WBC (0-5/HPF) Ur Epithelial Cells (NONE-FEW) Urine Bacteria (NEGATIVE) Wilberto Results Last 24 Hours: Microbiology 02/24/20 14:01 Urine Culture - Preliminary Urine, Voided NO GROWTH AFTER 1 DAY Med Orders - Current: Current Medications Acetaminophen (Tylenol) 650 mg PO Q4H PRN PRN Reason: Pain (Mild 1-3)/fever Last Admin: 02/25/20 05:59 Dose: 650 mg Documented by: Acidophilus/Pectin (Acidophilus/Pectin, Scan[place]) 1 tab PO DAILY [facility] Enoxaparin Sodium (Lovenox) 40 mg SUBCUT Q24H [facility] Last Admin: 02/24/20 20:26 Dose: 40 mg Documented by: Pantoprazole Sodium 40 mg/ (Sodium Chloride) 10 mls @ 300 mls/hr IV DAILY [facility] Last Admin: 02/25/20 08:03 Dose: 300 mls/hr Documented by: Piperacillin Sod/Tazobactam (Sod 4.5 gm/ Sodium Chloride) 100 mls @ 100 mls/hr IV Q8H [facility] Last Admin: 02/25/20 10:59 Dose: 100 mls/hr Documented by: Lactated Ringer's (Ringers, Lactated) 1,000 mls @ 200 mls/hr IV ASDIRECTED [facility] Last Admin: 02/25/20 04:29 Dose: 200 mls/hr Documented by: Linezolid 600 mg/ Premix 300 mls @ 300 mls/hr IV Q12H [facility] Magnesium Sulfate (Magnesium Sulfate In Water Premix) 2 gm in 50 mls @ 50 mls/hr IV ONETIME ONE Stop: 02/25/20 14:50 Ondansetron HCl (Zofran) 4 mg IVPUSH Q4H PRN PRN Reason: Nausea/Vomiting Last Admin: 02/25/20 09:48 Dose: 4 mg Documented by: Discontinued Medications Acetaminophen (Tylenol Extra Strength) 1,000 mg PO ONETIME ONE Stop: 02/24/20 15:48 Last Admin: 02/24/20 15:51 Dose: 1,000 mg Documented by: Acetaminophen (Tylenol Extra Strength) Confirm Administered Dose 1,000 mg .ROUTE .STK-MED ONE Stop: 02/24/20 15:49 Last Admin: 02/24/20 15:55 Dose: Not Given Documented by: Calcium Gluconate (Calcium Gluconate) 1 gm IVPUSH ONETIME ONE Stop: 02/24/20 18:08 Last Admin: 02/24/20 18:25 Dose: 1 gm Documented by: Diphenhydramine HCl (Benadryl) 25 mg IVPUSH ONETIME ONE Stop: 02/25/20 11:35 Last Admin: 02/25/20 11:57 Dose: 25 mg Documented by: Sodium Chloride (Normal Saline) 1,000 mls @ 999 mls/hr IV .BOLUS ONE Stop: 02/24/20 15:22 Last Admin: 02/24/20 14:26 Dose: 999 mls/hr Documented by: Sodium Chloride (Normal Saline) 1,000 mls @ 1,000 mls/hr IV .Bolus ONE Stop: 02/24/20 16:46 Last Admin: 02/24/20 15:52 Dose: 1,000 mls/hr Documented by: Sodium Chloride (Normal Saline) 1,000 mls @ 999 mls/hr IV .Bolus ONE Stop: 02/24/20 18:06 Last Admin: 02/24/20 17:08 Dose: 999 mls/hr Documented by: Magnesium Sulfate (Magnesium Sulfate In Water Premix) 1 gm in 25 mls @ 50 mls/hr IV ONETIME ONE Stop: 02/24/20 18:37 Last Admin: 02/24/20 18:25 Dose: 50 mls/hr Documented by: Piperacillin Sod/Tazobactam (Sod 3.375 gm/ Sodium Chloride) 50 mls @ 100 mls/hr IV ONETIME ONE Stop: 02/24/20 18:47 Last Admin: 02/24/20 19:27 Dose: 100 mls/hr Documented by: Piperacillin Sod/Tazobactam (Sod 2.25 gm/ Sodium Chloride) 50 mls @ 100 mls/hr IV Q6H [facility] Sodium Chloride (Normal Saline) 1,000 mls @ 125 mls/hr IV ASDIRECTED [facility] Sodium Chloride (Normal Saline) 1,000 mls @ 125 mls/hr IV ASDIRECTED [facility] Last Admin: 02/24/20 21:02 Dose: 125 mls/hr Documented by: Sodium Chloride (Normal Saline) 500 mls @ 999 mls/hr IV BOLUS ONE Stop: 02/24/20 23:32 Last Admin: 02/24/20 23:12 Dose: 999 mls/hr Documented by: Sodium Chloride (Normal Saline) 1,000 mls @ 200 mls/hr IV ASDIRECTED [facility] Last Infusion: 02/25/20 00:10 Dose: 0 mls/hr Documented by: Sodium Chloride (Normal Saline) 500 mls @ 999 mls/hr IV NOW STA Stop: 02/25/20 00:30 Last Admin: 02/25/20 00:10 Dose: 999 mls/hr Documented by: Sodium Chloride (Normal Saline) 1,000 mls @ 999 mls/hr IV BOLUS ONE Stop: 02/25/20 01:48 Last Admin: 02/25/20 01:05 Dose: 999 mls/hr Documented by: Vancomycin HCl 2 gm/ Sodium (Chloride) 500 mls @ 333 mls/hr IV NOW ONE Stop: 02/25/20 02:30 Last Admin: 02/25/20 02:25 Dose: 333 mls/hr Documented by: Piperacillin Sod/Tazobactam (Sod 4.5 gm/ Sodium Chloride) 100 mls @ 100 mls/hr IV Q8H [facility] Last Admin: 02/25/20 04:53 Dose: Not Given Documented by: Meropenem 1 gm/ Sodium (Chloride) 100 mls @ 200 mls/hr IV ONETIME ONE Stop: 02/25/20 01:52 Last Admin: 02/25/20 02:37 Dose: Not Given Documented by: Sodium Chloride (Normal Saline) 1,000 mls @ 999 mls/hr IV BOLUS ONE Stop: 02/25/20 02:25 Last Admin: 02/25/20 02:12 Dose: 999 mls/hr Documented by: Meropenem 1 gm/ Sodium (Chloride) 100 mls @ 200 mls/hr IV ONETIME ONE Stop: 02/25/20 03:59 Last Admin: 02/25/20 04:03 Dose: 200 mls/hr Documented by: Vancomycin HCl 1.25 gm/ Sodium (Chloride) 250 mls @ 166.667 mls/hr IV Q12H [facility] Norepinephrine Bitartrate (Norepinephr-0.9% Nacl 4 Mg/250) 4 mg in 250 mls @ 7.5 mls/hr IV TITRATE [facility]; Protocol Lactated Ringer's (Ringers, Lactated) 1,000 mls @ 999 mls/hr IV .BOLUS ONE Stop: 02/25/20 10:44 Last Admin: 02/25/20 10:04 Dose: 999 mls/hr Documented by: Iopamidol (Isovue Multipack-370 (76%)) 100 ml IVPUSH ONETIME STA Stop: 02/24/20 16:58 Last Admin: 02/24/20 16:57 Dose: 100 ml Documented by: Methylprednisolone Sodium Succinate (Solu-Medrol) 40 mg IVPUSH ONETIME ONE Stop: 02/25/20 11:35 Last Admin: 02/25/20 12:00 Dose: 40 mg Documented by: Potassium Chloride (Potassium Chloride) 40 meq PO Q4H [facility] Stop: 02/25/20 11:01 Last Admin: 02/25/20 08:06 Dose: 40 meq Documented by: Sodium Chloride (Normal Saline) 1,000 ml IV NOW STA Stop: 02/25/20 06:06 Last Admin: 02/25/20 06:30 Dose: 1,000 ml Documented by: - Exam General: Alert, Oriented, Cooperative, No Acute Distress HEENT: Pupils Equal, Pupils Reactive Neck: Supple, Trachea Midline Lungs: Clear to Auscultation Cardiovascular: Regular Rate, Regular Rhythm, No Murmurs GI/Abdominal Exam: Normal Bowel Sounds, Soft, Non-Tender, No Distention Back Exam: Normal Inspection, Full Range of Motion Extremities: Pedal Edema, Increased Warmth, Redness Skin: Rash (uricardial rash along her arms and legs and lower abdomen, warm to touch) Neurological: No New Focal Deficit Psy/Mental Status: Alert, Normal Affect, Normal Mood Sepsis Event Note - Evaluation Sepsis Screening Result: Sepsis Risk - Focused Exam Vital Signs: Vital Signs Temp Temp Resp BP Pulse Ox 02/25/20 14:00 19 97/39 L 94 L 02/25/20 13:33 21 H 103/44 L 93 L 02/25/20 13:00 25 H 97/49 L 95 02/25/20 12:39 25 H 91/58 L 96 02/25/20 12:00 38.0 C 24 H 90/51 L 94 L 02/25/20 10:54 24 H 91/34 L 93 L 02/25/20 10:33 23 H 90/38 L 94 L 02/25/20 10:00 22 H 97/41 L 93 L 02/25/20 09:00 20 91/42 L 95 02/25/20 08:00 38.6 C H 19 103/37 L 93 L 02/25/20 07:00 21 H 93/37 L 95 02/25/20 06:00 39.0 C H 28 H 94/43 L 97 02/25/20 05:59 39.6 C H 02/25/20 05:00 39.4 C H 33 H 105/36 L 94 L 02/25/20 04:00 39.6 C H 24 H 97/45 L 99 - Problem List Review Problem List Initiated/Reviewed/Updated: Yes - My Orders Last 24 Hours: My Active Orders 02/24/20 14:01 CULTURE URINE [RM] Routine 02/24/20 18:16 Telemetry Monitoring [Cardiac Monitoring] [RC] Q8H 02/24/20 19:21 May Shower [RC] ASDIRECTED Oxygen Therapy [RC] PRN VTE/DVT Education [RC] Q12H Vital Signs [RC] Q1H Acetaminophen [TylenoL] 650 mg PO Q4H PRN Ondansetron [Zofran] 4 mg IVPUSH Q4H PRN Resuscitation Status Routine 02/24/20 19:22 Intake and Output [RC] Q12H Pulse Oximetry [RC] PRN 02/24/20 20:00 Enoxaparin [Lovenox] 40 mg SUBCUT Q24H 02/25/20 01:08 Transfer Patient (Change bed) [ADT] Routine 02/25/20 01:20 Notify Provider Consults [RC] ASDIRECTED Consult to Physician [CONS] Routine 02/25/20 02:00 CULTURE BLOOD [BC] Stat Blood Culture x2 Reflex Set [OM.PC] Stat 02/25/20 02:03 CULTURE BLOOD [BC] Stat 02/25/20 12:30 Admission Status [Patient Status] [ADT] Routine 02/25/20 12:59 Transvaginal Non OB [US] Routine 02/26/20 05:11 CBC WITH AUTO DIFF [HEME] DAILY COMPREHENSIVE METABOLIC PN,CMP [CHEM] DAILY MAGNESIUM [CHEM] DAILY 02/27/20 05:11 CBC WITH AUTO DIFF [HEME] DAILY COMPREHENSIVE METABOLIC PN,CMP [CHEM] DAILY MAGNESIUM [CHEM] DAILY - Assessment Assessment:: 25yo admitted for suspected sepsis due to pyleonephritis. - Plan Plan:: - BP improving but continue to be borderline low, continue to monitor vitals closely - afebrile currently - stopped zosyn due to allergic reaction, will continue linezoid and meropenum, pending urine and blood cultures - will do transvaginal US to evaluate for any retained POCs - DUNCAN; Cr improving, 1.4 this AM, will continue to trend daily - Plt has been decreasing compared to , 97 this AM, will continue to trend daily - lactate trended down to 1.9 - repeat CBC, CMP, Mg in the AM
--- NOTE | 2020-02-25 15:10 | PCM.CONS ---
H&P History of Present Illness - General Date of Service: 02/25/20 Admit Problem/Dx: Admission Diagnosis/Problem Admission Diagnosis/Problem Acute kidney injury - History of Present Illness Initial Comments - Free Text/Narative: Patient is a 25-year-old female with no significant past medical history recently delivered. Came in with complaints of fever, tachycardia and dysuria. Was initiated on antibiotics per [employer]. Unfortunately patient became septic and was admitted overnight to our ICU for sepsis. Patient was started on Vanco and Zosyn, with fluids. Overall lactic acid improved by trending down, blood pressures remain soft, though patient states she is feeling better this morning. Patient was seen and examined at bedside all questions and concerns were addressed at bedside. - Related Data Allergies/Adverse Reactions: Allergies Allergy/AdvReac Type Severity Reaction Status Date / Time No Known Allergies Allergy Verified 02/24/20 22:56 Home Medications: Home Meds Pnv No.95/Ferrous Fum/Folic AC [ Caplet] 1 each PO DAILY 02/18/20 [History] Amoxicillin/Potassium Clav [Amox-Clav 875-125 mg Tablet] 1 tab PO BID 02/24/20 [History] Past Medical History HEENT History: Reports: None Cardiovascular History: Reports: None Respiratory History: Reports: None Gastrointestinal History: Reports: None Genitourinary History: Reports: None [employer] History: Reports: Polycystic Ovaries, Musculoskeletal History: Reports: None Neurological History: Reports: None Psychiatric History: Reports: None Endocrine/Metabolic History: Reports: None Hematologic History: Reports: None Immunologic History: Reports: None Oncologic (Cancer) History: Reports: None Dermatologic History: Reports: None - Infectious Disease History Infectious Disease History: Reports: Chicken Pox - Past Surgical History Head Surgeries/Procedures: Reports: None HEENT Surgical History: Reports: Tonsillectomy Cardiovascular Surgical History: Reports: None Respiratory Surgical History: Reports: None GI Surgical History: Reports: Other (See Below) Other GI Surgeries/Procedures: Gastric sleeve in 2018 Female Surgical History: Reports: None Endocrine Surgical History: Reports: None Neurological Surgical History: Reports: None Musculoskeletal Surgical History: Reports: None Oncologic Surgical History: Reports: None Dermatological Surgical History: Reports: None Social & Family History - Family History HEENT: Reports: None Cardiac: Reports: None Respiratory: Reports: None GI: Reports: None : Reports: None OBGYN: Reports: None Musculoskeletal: Reports: None Neurological: Reports: Alzheimers Disease, Vertigo Other Neurological Family History: Stroke Psychiatric: Reports: None Endocrine/Metabolic: Reports: None Hematologic: Reports: None Immunologic: Reports: None Dermatologic: Reports: None Oncologic: Reports: None - Tobacco Use Tobacco Use Status *Q: Former Tobacco User Used Tobacco, but Quit: Yes Month/Year Tobacco Last Used: may Second Hand Smoke Exposure: No - Caffeine Use Caffeine Use: Reports: Soda - Recreational Drug Use Recreational Drug Use: No H&P Review of Systems - Review of Systems: Review Of Systems: See Below General: Reports: Fatigue HEENT: Reports: No Symptoms Pulmonary: Reports: No Symptoms Cardiovascular: Reports: No Symptoms Gastrointestinal: Reports: Diarrhea Genitourinary: Reports: Dysuria Musculoskeletal: Reports: No Symptoms Skin: Reports: Erythema Psychiatric: Reports: No Symptoms Neurological: Reports: No Symptoms Hematologic/Lymphatic: Reports: No Symptoms Immunologic: Reports: No Symptoms Exam - Exam Exam: See Below - Vital Signs Vital Signs: Last Vital Signs Temp 100.4 F 02/25/20 12:00 Pulse 142 H 02/25/20 01:03 Resp 19 02/25/20 14:00 BP 97/39 L 02/25/20 14:00 Pulse Ox 94 L 02/25/20 14:00 Weight: 197 lb 6.4 oz - Exam Quality Assessment: Supplemental Oxygen General: Alert, Oriented, Cooperative HEENT: Conjunctiva Clear, EOMI, Hearing Intact, Mucosa Moist & [place], Nares Patent, Normal Nasal Septum, Pupils Equal, Pupils Reactive, PERRLA Neck: Supple, Trachea Midline, Full Range of Motion. No: Lymphadenopathy, JVD Lungs: Clear to Auscultation, Normal Respiratory Effort Cardiovascular: Regular Rhythm, Tachycardia GI/Abdominal Exam: Normal Bowel Sounds, Soft, Non-Tender, No Mass (Female) Exam: Normal External Exam, Normal Speculum Exam, Normal Bimanual Exam Extremities: Normal Inspection, Normal Range of Motion, Non-Tender, No Pedal Edema, Normal Capillary Refill Peripheral Pulses: 2+: Radial (L), Radial (R), Dorsalis Pedis (L), Dorsalis Pedis (R) Skin: Warm, Dry, Intact Neurological: Cranial Nerves Intact, Reflexes Equal Bilateral Neuro Extensive - Mental Status: Alert, Oriented x3, Normal Mood/Affect, Normal Cognition Neuro Extensive - Motor, Sensory, Reflexes: CN II-XII Intact, Normal Gait, Normal Reflexes Psychiatric: Alert, Normal Affect, Normal Mood - Patient Data Lab Results Last 24 hrs: Laboratory Results - last 24 hr 02/24/20 02/24/20 02/24/20 Range/Units 14:01 17:18 17:18 WBC (4.0-11.0) K/uL RBC (4.30-5.90) M/uL Hgb (12.0-16.0) g/dL Hct (36.0-46.0) % MCV (80.0-98.0) fL MCH (27.0-32.0) pg MCHC (31.0-37.0) g/dL RDW Std Deviation (28.0-62.0) fl RDW Coeff of Rosa (11.0-15.0) % Plt Count (150-400) K/uL MPV (7.40-12.00) fL Add Manual Diff Neutrophils % (Manual) (48.0-80.0) % Band Neutrophils % % Lymphocytes % (Manual) (16.0-40.0) % Monocytes % (Manual) (0.0-15.0) % Eosinophils % (Manual) (0.0-7.0) % Nucleated RBC % /100WBC Absolute Seg Neuts (1.4-5.7) Band Neutrophils # Lymphocytes # (Manual) (0.6-2.4) Monocytes # (Manual) (0.0-0.8) Eosinophils # (Manual) (0.0-0.7) Nucleated RBCs # K/uL D-Dimer, Quantitative (0.0-0.50) mg/L FEU Lactate 3.1 H* (0.20-2.00) mmol/L Sodium 133 L (136-145) mmol/L Potassium 3.4 L (3.5-5.1) mmol/L Chloride 101 (98-107) mmol/L Carbon Dioxide 17.6 L (21.0-32.0) mmol/L BUN 31 H (7.0-18.0) mg/dL Creatinine 1.9 H (0.6-1.0) mg/dL Est Cr Clr Drug Dosing 38.75 mL/min Estimated GFR (MDRD) 32.0 ml/min Glucose 75 (74-106) mg/dL Calcium 7.1 L (8.5-10.1) mg/dL Magnesium (1.8-2.4) mg/dL Total Bilirubin (0.2-1.0) mg/dL AST (15-37) IU/L ALT (14-63) IU/L Alkaline Phosphatase (46-116) U/L Total Protein (6.4-8.2) g/dL Albumin (3.4-5.0) g/dL Globulin (2.6-4.0) g/dL Albumin/Globulin Ratio (0.9-1.6) Urine Color YELLOW Urine Appearance CLOUDY Urine pH 5.0 (5.0-8.0) Ur Specific [place] >= 1.030 (1.001-1.035) Urine Protein 30 H (NEGATIVE) mg/dL Urine Glucose (UA) NEGATIVE (NEGATIVE) mg/dL Urine Ketones TRACE H (NEGATIVE) mg/dL Urine Occult Blood MODERATE H (NEGATIVE) Urine Nitrite POSITIVE H (NEGATIVE) Urine Bilirubin MODERATE H (NEGATIVE) Urine Ictotest NEGATIVE Urine Urobilinogen 1.0 (<2.0) EU/dL Ur Leukocyte Esterase TRACE H (NEGATIVE) Urine RBC 1-5 (0-2/HPF) Urine WBC 4-8 (0-5/HPF) Ur Epithelial Cells FEW (NONE-FEW) Urine Bacteria 3+ H (NEGATIVE) 02/24/20 02/25/20 02/25/20 Range/Units 21:46 03:03 05:40 WBC 7.59 (4.0-11.0) K/uL RBC 3.44 L (4.30-5.90) M/uL Hgb 9.8 L (12.0-16.0) g/dL Hct 29.1 L (36.0-46.0) % MCV 84.6 (80.0-98.0) fL MCH 28.5 (27.0-32.0) pg MCHC 33.7 (31.0-37.0) g/dL RDW Std Deviation 42.6 (28.0-62.0) fl RDW Coeff of Rosa 14 (11.0-15.0) % Plt Count 97 L (150-400) K/uL MPV 10.30 (7.40-12.00) fL Add Manual Diff YES Neutrophils % (Manual) 36 L (48.0-80.0) % Band Neutrophils % 57 % Lymphocytes % (Manual) 1 L (16.0-40.0) % Monocytes % (Manual) 3 (0.0-15.0) % Eosinophils % (Manual) 3 (0.0-7.0) % Nucleated RBC % 0.0 /100WBC Absolute Seg Neuts 2.7 (1.4-5.7) Band Neutrophils # 4.3 Lymphocytes # (Manual) 0.1 L (0.6-2.4) Monocytes # (Manual) 0.2 (0.0-0.8) Eosinophils # (Manual) 0.2 (0.0-0.7) Nucleated RBCs # 0 K/uL D-Dimer, Quantitative (0.0-0.50) mg/L FEU Lactate 4.8 H* 2.5 H* (0.20-2.00) mmol/L Sodium (136-145) mmol/L Potassium (3.5-5.1) mmol/L Chloride (98-107) mmol/L Carbon Dioxide (21.0-32.0) mmol/L BUN (7.0-18.0) mg/dL Creatinine (0.6-1.0) mg/dL Est Cr Clr Drug Dosing mL/min Estimated GFR (MDRD) ml/min Glucose (74-106) mg/dL Calcium (8.5-10.1) mg/dL Magnesium (1.8-2.4) mg/dL Total Bilirubin (0.2-1.0) mg/dL AST (15-37) IU/L ALT (14-63) IU/L Alkaline Phosphatase (46-116) U/L Total Protein (6.4-8.2) g/dL Albumin (3.4-5.0) g/dL Globulin (2.6-4.0) g/dL Albumin/Globulin Ratio (0.9-1.6) Urine Color Urine Appearance Urine pH (5.0-8.0) Ur Specific [place] (1.001-1.035) Urine Protein (NEGATIVE) mg/dL Urine Glucose (UA) (NEGATIVE) mg/dL Urine Ketones (NEGATIVE) mg/dL Urine Occult Blood (NEGATIVE) Urine Nitrite (NEGATIVE) Urine Bilirubin (NEGATIVE) Urine Ictotest Urine Urobilinogen (<2.0) EU/dL Ur Leukocyte Esterase (NEGATIVE) Urine RBC (0-2/HPF) Urine WBC (0-5/HPF) Ur Epithelial Cells (NONE-FEW) Urine Bacteria (NEGATIVE) 02/25/20 02/25/20 02/25/20 Range/Units 05:40 05:40 05:40 WBC (4.0-11.0) K/uL RBC (4.30-5.90) M/uL Hgb (12.0-16.0) g/dL Hct (36.0-46.0) % MCV (80.0-98.0) fL MCH (27.0-32.0) pg MCHC (31.0-37.0) g/dL RDW Std Deviation (28.0-62.0) fl RDW Coeff of Rosa (11.0-15.0) % Plt Count (150-400) K/uL MPV (7.40-12.00) fL Add Manual Diff Neutrophils % (Manual) (48.0-80.0) % Band Neutrophils % % Lymphocytes % (Manual) (16.0-40.0) % Monocytes % (Manual) (0.0-15.0) % Eosinophils % (Manual) (0.0-7.0) % Nucleated RBC % /100WBC Absolute Seg Neuts (1.4-5.7) Band Neutrophils # Lymphocytes # (Manual) (0.6-2.4) Monocytes # (Manual) (0.0-0.8) Eosinophils # (Manual) (0.0-0.7) Nucleated RBCs # K/uL D-Dimer, Quantitative > 35.20 H (0.0-0.50) mg/L FEU Lactate 2.1 H* (0.20-2.00) mmol/L Sodium 134 L (136-145) mmol/L Potassium 3.3 L (3.5-5.1) mmol/L Chloride 103 (98-107) mmol/L Carbon Dioxide 16.6 L (21.0-32.0) mmol/L BUN 21 H (7.0-18.0) mg/dL Creatinine 1.4 H (0.6-1.0) mg/dL Est Cr Clr Drug Dosing 52.58 mL/min Estimated GFR (MDRD) 45.5 ml/min Glucose 73 L (74-106) mg/dL Calcium 7.0 L (8.5-10.1) mg/dL Magnesium 1.7 L (1.8-2.4) mg/dL Total Bilirubin 0.9 (0.2-1.0) mg/dL AST 30 (15-37) IU/L ALT 37 (14-63) IU/L Alkaline Phosphatase 68 (46-116) U/L Total Protein 4.2 L (6.4-8.2) g/dL Albumin 1.5 L (3.4-5.0) g/dL Globulin 2.7 (2.6-4.0) g/dL Albumin/Globulin Ratio 0.6 L (0.9-1.6) Urine Color Urine Appearance Urine pH (5.0-8.0) Ur Specific [place] (1.001-1.035) Urine Protein (NEGATIVE) mg/dL Urine Glucose (UA) (NEGATIVE) mg/dL Urine Ketones (NEGATIVE) mg/dL Urine Occult Blood (NEGATIVE) Urine Nitrite (NEGATIVE) Urine Bilirubin (NEGATIVE) Urine Ictotest Urine Urobilinogen (<2.0) EU/dL Ur Leukocyte Esterase (NEGATIVE) Urine RBC (0-2/HPF) Urine WBC (0-5/HPF) Ur Epithelial Cells (NONE-FEW) Urine Bacteria (NEGATIVE) 02/25/20 Range/Units 09:20 WBC (4.0-11.0) K/uL RBC (4.30-5.90) M/uL Hgb (12.0-16.0) g/dL Hct (36.0-46.0) % MCV (80.0-98.0) fL MCH (27.0-32.0) pg MCHC (31.0-37.0) g/dL RDW Std Deviation (28.0-62.0) fl RDW Coeff of Rosa (11.0-15.0) % Plt Count (150-400) K/uL MPV (7.40-12.00) fL Add Manual Diff Neutrophils % (Manual) (48.0-80.0) % Band Neutrophils % % Lymphocytes % (Manual) (16.0-40.0) % Monocytes % (Manual) (0.0-15.0) % Eosinophils % (Manual) (0.0-7.0) % Nucleated RBC % /100WBC Absolute Seg Neuts (1.4-5.7) Band Neutrophils # Lymphocytes # (Manual) (0.6-2.4) Monocytes # (Manual) (0.0-0.8) Eosinophils # (Manual) (0.0-0.7) Nucleated RBCs # K/uL D-Dimer, Quantitative (0.0-0.50) mg/L FEU Lactate 1.9 (0.20-2.00) mmol/L Sodium (136-145) mmol/L Potassium (3.5-5.1) mmol/L Chloride (98-107) mmol/L Carbon Dioxide (21.0-32.0) mmol/L BUN (7.0-18.0) mg/dL Creatinine (0.6-1.0) mg/dL Est Cr Clr Drug Dosing mL/min Estimated GFR (MDRD) ml/min Glucose (74-106) mg/dL Calcium (8.5-10.1) mg/dL Magnesium (1.8-2.4) mg/dL Total Bilirubin (0.2-1.0) mg/dL AST (15-37) IU/L ALT (14-63) IU/L Alkaline Phosphatase (46-116) U/L Total Protein (6.4-8.2) g/dL Albumin (3.4-5.0) g/dL Globulin (2.6-4.0) g/dL Albumin/Globulin Ratio (0.9-1.6) Urine Color Urine Appearance Urine pH (5.0-8.0) Ur Specific [place] (1.001-1.035) Urine Protein (NEGATIVE) mg/dL Urine Glucose (UA) (NEGATIVE) mg/dL Urine Ketones (NEGATIVE) mg/dL Urine Occult Blood (NEGATIVE) Urine Nitrite (NEGATIVE) Urine Bilirubin (NEGATIVE) Urine Ictotest Urine Urobilinogen (<2.0) EU/dL Ur Leukocyte Esterase (NEGATIVE) Urine RBC (0-2/HPF) Urine WBC (0-5/HPF) Ur Epithelial Cells (NONE-FEW) Urine Bacteria (NEGATIVE) Result Diagrams: 02/25/20 05:40 02/25/20 05:40 Wilberto Results Last 24 hrs: Microbiology 02/24/20 14:01 Urine Culture - Preliminary Urine, Voided NO GROWTH AFTER 1 DAY Sepsis Event Note - Evaluation Sepsis Screening Result: Sepsis Risk - Focused Exam Vital Signs: Vital Signs Temp Temp Resp BP Pulse Ox 02/25/20 14:00 19 97/39 L 94 L 02/25/20 13:33 21 H 103/44 L 93 L 02/25/20 13:00 25 H 97/49 L 95 02/25/20 12:39 25 H 91/58 L 96 02/25/20 12:00 100.4 F 24 H 90/51 L 94 L 02/25/20 10:54 24 H 91/34 L 93 L 02/25/20 10:33 23 H 90/38 L 94 L 02/25/20 10:00 22 H 97/41 L 93 L 02/25/20 09:00 20 91/42 L 95 02/25/20 08:00 101.5 F H 19 103/37 L 93 L 02/25/20 07:00 21 H 93/37 L 95 02/25/20 06:00 102.2 F H 28 H 94/43 L 97 02/25/20 05:59 103.2 F H 02/25/20 05:00 102.9 F H 33 H 105/36 L 94 L 02/25/20 04:00 103.3 F H 24 H 97/45 L 99 Consult PN Assessment/Plan Procedures: Procedures ASSAY OF FREE TESTOSTERONE (03/14/17) ASSAY OF GONADOTROPIN (FSH) (12/16/16) ASSAY OF GONADOTROPIN (LH) (12/16/16) ASSAY OF PROLACTIN (12/16/16) ASSAY OF PROTEIN URINE (02/08/20) ASSAY OF TOTAL TESTOSTERONE (03/14/17) ASSAY OF URINE CREATININE (02/08/20) ASSAY THYROID STIM HORMONE (12/16/16) COMPREHEN METABOLIC PANEL (12/26/16) CULTURE SCREEN ONLY (01/25/20) CYTOPATH C/V AUTO FLUID REDO (07/15/19) LIPID PANEL (01/23/18) ROUTINE VENIPUNCTURE (01/23/18) SARS-COV-2 COVID-19 AMP PRB (01/11/20) URINE CULTURE/COLONY COUNT (02/08/20) Problem List Initiated/Reviewed/Updated: Yes My Orders Last 24 Hours: My Active Orders 02/25/20 Lunch Clear Liquid Diet [DIET] 02/25/20 14:00 Acidophilus/Pectin, [place] 1 tab PO DAILY Plan: 25-year-old female admitted for sepsis post delivery. 1. Sepsis: Started on empiric antibiotics vancomycin and Zosyn 6 L fluid Clear liquid diet Lactic acid level continues to trend down, currently 2.1 No source of infection found, cultures did not grow anything, will wait and see if cultures grow anything on urine culture. Otherwise may consider consider possible retained products of conception. Therefore will obtain transvaginal ultrasound. Continue to monitor closely, DC vancomycin and Zosyn as patient developed rash. Therefore started on linezolid and meropenem. Possibly had penicillin allergy therefore provided with 125 Solu-Medrol, 50 Benadryl and 20 famotidine. 2. Hypomagnesemia: Replete 2 mg IV Monitor CMP with daily labs 3. DUNCAN: Improved, continue to trend with a.m. CMP 4. Possible retained products of conception seen on CT: We will follow-up with transvaginal ultrasound to further assess 5. Liquid stool noted on CT, possible correlation with enterocolitis: Patient denies any abdominal pain, however is complaining of diarrhea We will check stool culture We will provide probiotics 6. DVT prophylaxis: Enoxaparin 40 subQ 7. GI prophylaxis: 40 pantoprazole
[2020-02-25] MEDS: Acidophilus with Citrus Pectin Tab PO SCH (15:27)
[2020-02-25] MEDS: Linezolid 600 MG in Premix Bag 1 BAG IV SCH (15:40)
--- NOTE | 2020-02-25 16:07 | US ---
INDICATION: fever, evaluate for retained products of conception. TECHNIQUE: Transvaginal pelvic ultrasound. COMPARISON: 02/24/2020 CT. FINDINGS: Enlarged post gravid uterus measuring 15.9 x 14.2 x 10.7 cm. The endometrium is low-density and irregularly, possibly containing some fluid or low-density material. Due to the positioning of the uterus, endometrial stripe thickness is difficult to ascertain but appears to measure at least 1.5 cm and possibly up to 4.5 cm. Based on these measurements, retained products of conception cannot be excluded. The right ovary appears normal and has normal color and spectral Doppler flow. Left ovary could not be visualized. Small amount of fluid in the cul-de-sac. IMPRESSION: Post gravid uterus with irregular, thickened endometrium. Based on endometrial measurements, retained products of conception cannot be excluded. Dictated by Chicho Linton MD @ Feb 25 2020 4:00PM Signed by Dr. Chicho Linton @ Feb 25 2020 4:05PM
[2020-02-25] MEDS ORDERED: Potassium Chloride 20 MEQ Tab.ER PO ONE (16:22)
[2020-02-25] MEDS ORDERED: Meropenem 1 GM in Sodium Chloride 0.9% 100 ML IV SCH (18:00)
[2020-02-25] MEDS: MEROPENEM 1 GM IV SCH (18:14)
[2020-02-25] MEDS: Enoxaparin 40 MG/0.4 ML Syringe SUBCUT SCH (19:43)
[2020-02-26] MEDS: Lactated Ringers 1,000 ML IV SCH ×3 (00:21→13:15)
[2020-02-26] MEDS: MEROPENEM 1 GM IV SCH ×3 (01:58→17:46)
[2020-02-26] MEDS: Linezolid 600 MG in Premix Bag 1 BAG IV SCH ×2 (02:28→14:24)
[2020-02-26 06:53] LABS: BLOOD UREA NITROGEN,BUN 14 mg/dL (7.0-18.0); CARBON DIOXIDE,CO2 22.2 mmol/L (21.0-32.0); CHLORIDE,CL 107 mmol/L (98-107); GLUCOSE RANDOM 110 mg/dL (74-106); POTASSIUM,K 4.6 mmol/L (3.5-5.1); SODIUM,NA 138 mmol/L (136-145)
[2020-02-26] MEDS: Pantoprazole 40 MG in Sodium Chloride 0.9% 10 ML IV SCH (09:19)
[2020-02-26] MEDS: Acidophilus with Citrus Pectin Tab PO SCH (09:19)
--- NOTE | 2020-02-26 11:04 | PCM.CONSN ---
- General Info Date of Service: 02/26/20 Admission Dx/Problem (Free Text): Admission Diagnosis/Problem Admission Diagnosis/Problem Acute kidney injury Subjective Update: seen at bedside, doing better, MAPs acceptable, rash is resolving - Review of Systems General: Denies: Fever, Weakness, Fatigue Pulmonary: Denies: Shortness of Breath, Pleuritic Chest Pain Cardiovascular: Denies: Chest Pain, Palpitations Gastrointestinal: Denies: Abdominal Pain, Constipation, Decreased Appetite Genitourinary: Denies: Dysuria, Frequency, Burning Musculoskeletal: Denies: Neck Pain, Shoulder Pain Skin: Reports: Rash. Denies: Cyanosis, Jaundice, Mottled - Patient Data Vitals - Most Recent: Last Vital Signs Temp 36.7 C 02/26/20 10:00 Pulse 142 H 02/25/20 01:03 Resp 16 02/26/20 10:00 BP 96/59 L 02/26/20 10:00 Pulse Ox 95 02/26/20 10:00 Weight - Most Recent: 89.539 kg I&O - Last 24 Hours: Intake & Output 02/25/20 02/26/20 02/26/20 22:59 06:59 14:59 Intake Total 1400 2850 1050 Output Total 900 1860 Balance 843 408 0248 Lab Results Last 24 Hours: Laboratory Results - last 24 hr 02/26/20 02/26/20 Range/Units 06:20 06:20 WBC 9.22 (4.0-11.0) K/uL RBC 3.71 L (4.30-5.90) M/uL Hgb 10.7 L (12.0-16.0) g/dL Hct 31.9 L (36.0-46.0) % MCV 86.0 (80.0-98.0) fL MCH 28.8 (27.0-32.0) pg MCHC 33.5 (31.0-37.0) g/dL RDW Std Deviation 45.1 (28.0-62.0) fl RDW Coeff of Rosa 14 (11.0-15.0) % Plt Count 86 L (150-400) K/uL MPV 10.90 (7.40-12.00) fL Add Manual Diff YES Neutrophils % (Manual) 83 H (48.0-80.0) % Band Neutrophils % 5 % Lymphocytes % (Manual) 7 L (16.0-40.0) % Monocytes % (Manual) 4 (0.0-15.0) % Eosinophils % (Manual) 1 (0.0-7.0) % Nucleated RBC % 0.0 /100WBC Absolute Seg Neuts 7.7 H (1.4-5.7) Band Neutrophils # 0.5 Lymphocytes # (Manual) 0.6 (0.6-2.4) Monocytes # (Manual) 0.4 (0.0-0.8) Eosinophils # (Manual) 0.1 (0.0-0.7) Nucleated RBCs # 0 K/uL Sodium 138 (136-145) mmol/L Potassium 4.6 (3.5-5.1) mmol/L Chloride 107 (98-107) mmol/L Carbon Dioxide 22.2 (21.0-32.0) mmol/L BUN 14 (7.0-18.0) mg/dL Creatinine 1.0 (0.6-1.0) mg/dL Est Cr Clr Drug Dosing 73.62 mL/min Estimated GFR (MDRD) > 60.0 ml/min Glucose 110 H (74-106) mg/dL Calcium 8.1 L (8.5-10.1) mg/dL Magnesium 2.3 (1.8-2.4) mg/dL Total Bilirubin 0.6 (0.2-1.0) mg/dL AST 16 (15-37) IU/L ALT 35 (14-63) IU/L Alkaline Phosphatase 96 (46-116) U/L Total Protein 4.5 L (6.4-8.2) g/dL Albumin 1.6 L (3.4-5.0) g/dL Globulin 2.9 (2.6-4.0) g/dL Albumin/Globulin Ratio 0.6 L (0.9-1.6) Wilberto Results Last 24 Hours: Microbiology 02/24/20 14:01 Urine Culture - Final Urine, Voided No Growth 02/25/20 02:03 Aerobic Blood Culture - Preliminary Blood - Venous - Lab Draw NO GROWTH AFTER 1 DAY Anaerobic Blood Culture - Preliminary NO GROWTH AFTER 1 DAY 02/25/20 02:00 Aerobic Blood Culture - Preliminary Blood - Venous NO GROWTH AFTER 1 DAY Anaerobic Blood Culture - Preliminary NO GROWTH AFTER 1 DAY 02/25/20 15:00 C. difficile Antigen & Toxins A,B - Final Stool / Feces Med Orders - Current: Current Medications Acetaminophen (Tylenol) 650 mg PO Q4H PRN PRN Reason: Pain (Mild 1-3)/fever Last Admin: 02/25/20 15:24 Dose: 650 mg Documented by: Acidophilus/Pectin (Acidophilus/Pectin, [place]) 1 tab PO DAILY [facility] Last Admin: 02/26/20 09:19 Dose: 1 tab Documented by: Enoxaparin Sodium (Lovenox) 40 mg SUBCUT Q24H [facility] Last Admin: 02/25/20 19:43 Dose: 40 mg Documented by: Pantoprazole Sodium 40 mg/ (Sodium Chloride) 10 mls @ 300 mls/hr IV DAILY [facility] Last Admin: 02/26/20 09:19 Dose: 300 mls/hr Documented by: Lactated Ringer's (Ringers, Lactated) 1,000 mls @ 200 mls/hr IV ASDIRECTED [facility] Last Admin: 02/26/20 00:21 Dose: 200 mls/hr Documented by: Linezolid 600 mg/ Premix 300 mls @ 300 mls/hr IV Q12H [facility] Last Admin: 02/26/20 02:28 Dose: 300 mls/hr Documented by: Meropenem/Sodium Chloride (Meropenem) 50 mls @ 100 mls/hr IV Q8H [facility] Last Admin: 02/26/20 10:09 Dose: 100 mls/hr Documented by: Ondansetron HCl (Zofran) 4 mg IVPUSH Q4H PRN PRN Reason: Nausea/Vomiting Last Admin: 02/25/20 09:48 Dose: 4 mg Documented by: Discontinued Medications Acetaminophen (Tylenol Extra Strength) 1,000 mg PO ONETIME ONE Stop: 02/24/20 15:48 Last Admin: 02/24/20 15:51 Dose: 1,000 mg Documented by: Acetaminophen (Tylenol Extra Strength) Confirm Administered Dose 1,000 mg .ROUTE .STK-MED ONE Stop: 02/24/20 15:49 Last Admin: 02/24/20 15:55 Dose: Not Given Documented by: Calcium Gluconate (Calcium Gluconate) 1 gm IVPUSH ONETIME ONE Stop: 02/24/20 18:08 Last Admin: 02/24/20 18:25 Dose: 1 gm Documented by: Diphenhydramine HCl (Benadryl) 25 mg IVPUSH ONETIME ONE Stop: 02/25/20 11:35 Last Admin: 02/25/20 11:57 Dose: 25 mg Documented by: Diphenhydramine HCl (Benadryl) 50 mg IVPUSH ONETIME ONE Stop: 02/25/20 14:47 Last Admin: 02/25/20 15:27 Dose: 50 mg Documented by: Famotidine (Pepcid) 20 mg IVPUSH ONETIME ONE Stop: 02/25/20 14:46 Last Admin: 02/25/20 15:27 Dose: 20 mg Documented by: Sodium Chloride (Normal Saline) 1,000 mls @ 999 mls/hr IV .BOLUS ONE Stop: 02/24/20 15:22 Last Admin: 02/24/20 14:26 Dose: 999 mls/hr Documented by: Sodium Chloride (Normal Saline) 1,000 mls @ 1,000 mls/hr IV .Bolus ONE Stop: 02/24/20 16:46 Last Admin: 02/24/20 15:52 Dose: 1,000 mls/hr Documented by: Sodium Chloride (Normal Saline) 1,000 mls @ 999 mls/hr IV .Bolus ONE Stop: 02/24/20 18:06 Last Admin: 02/24/20 17:08 Dose: 999 mls/hr Documented by: Magnesium Sulfate (Magnesium Sulfate In Water Premix) 1 gm in 25 mls @ 50 mls/hr IV ONETIME ONE Stop: 02/24/20 18:37 Last Admin: 02/24/20 18:25 Dose: 50 mls/hr Documented by: Piperacillin Sod/Tazobactam (Sod 3.375 gm/ Sodium Chloride) 50 mls @ 100 mls/hr IV ONETIME ONE Stop: 02/24/20 18:47 Last Admin: 02/24/20 19:27 Dose: 100 mls/hr Documented by: Piperacillin Sod/Tazobactam (Sod 2.25 gm/ Sodium Chloride) 50 mls @ 100 mls/hr IV Q6H [facility] Sodium Chloride (Normal Saline) 1,000 mls @ 125 mls/hr IV ASDIRECTED [facility] Sodium Chloride (Normal Saline) 1,000 mls @ 125 mls/hr IV ASDIRECTED [facility] Last Admin: 02/24/20 21:02 Dose: 125 mls/hr Documented by: Sodium Chloride (Normal Saline) 500 mls @ 999 mls/hr IV BOLUS ONE Stop: 02/24/20 23:32 Last Admin: 02/24/20 23:12 Dose: 999 mls/hr Documented by: Sodium Chloride (Normal Saline) 1,000 mls @ 200 mls/hr IV ASDIRECTED [facility] Last Infusion: 02/25/20 00:10 Dose: 0 mls/hr Documented by: Sodium Chloride (Normal Saline) 500 mls @ 999 mls/hr IV NOW STA Stop: 02/25/20 00:30 Last Admin: 02/25/20 00:10 Dose: 999 mls/hr Documented by: Sodium Chloride (Normal Saline) 1,000 mls @ 999 mls/hr IV BOLUS ONE Stop: 02/25/20 01:48 Last Admin: 02/25/20 01:05 Dose: 999 mls/hr Documented by: Vancomycin HCl 2 gm/ Sodium (Chloride) 500 mls @ 333 mls/hr IV NOW ONE Stop: 02/25/20 02:30 Last Admin: 02/25/20 02:25 Dose: 333 mls/hr Documented by: Piperacillin Sod/Tazobactam (Sod 4.5 gm/ Sodium Chloride) 100 mls @ 100 mls/hr IV Q8H [facility] Last Admin: 02/25/20 04:53 Dose: Not Given Documented by: Meropenem 1 gm/ Sodium (Chloride) 100 mls @ 200 mls/hr IV ONETIME ONE Stop: 02/25/20 01:52 Last Admin: 02/25/20 02:37 Dose: Not Given Documented by: Sodium Chloride (Normal Saline) 1,000 mls @ 999 mls/hr IV BOLUS ONE Stop: 02/25/20 02:25 Last Admin: 02/25/20 02:12 Dose: 999 mls/hr Documented by: Meropenem 1 gm/ Sodium (Chloride) 100 mls @ 200 mls/hr IV ONETIME ONE Stop: 02/25/20 03:59 Last Admin: 02/25/20 04:03 Dose: 200 mls/hr Documented by: Piperacillin Sod/Tazobactam (Sod 4.5 gm/ Sodium Chloride) 100 mls @ 100 mls/hr IV Q8H [facility] Last Admin: 02/25/20 10:59 Dose: 100 mls/hr Documented by: Vancomycin HCl 1.25 gm/ Sodium (Chloride) 250 mls @ 166.667 mls/hr IV Q12H [facility] Norepinephrine Bitartrate (Norepinephr-0.9% Nacl 4 Mg/250) 4 mg in 250 mls @ 7.5 mls/hr IV TITRATE [facility]; Protocol Lactated Ringer's (Ringers, Lactated) 1,000 mls @ 999 mls/hr IV .BOLUS ONE Stop: 02/25/20 10:44 Last Admin: 02/25/20 10:04 Dose: 999 mls/hr Documented by: Magnesium Sulfate (Magnesium Sulfate In Water Premix) 2 gm in 50 mls @ 50 mls/hr IV ONETIME ONE Stop: 02/25/20 14:50 Last Admin: 02/25/20 16:59 Dose: 50 mls/hr Documented by: Iopamidol (Isovue Multipack-370 (76%)) 100 ml IVPUSH ONETIME STA Stop: 02/24/20 16:58 Last Admin: 02/24/20 16:57 Dose: 100 ml Documented by: Methylprednisolone Sodium Succinate (Solu-Medrol) 40 mg IVPUSH ONETIME ONE Stop: 02/25/20 11:35 Last Admin: 02/25/20 12:00 Dose: 40 mg Documented by: Methylprednisolone Sodium Succinate (Solu-Medrol) 125 mg IVPUSH ONETIME ONE Stop: 02/25/20 14:46 Last Admin: 02/25/20 15:26 Dose: 125 mg Documented by: Potassium Chloride (Potassium Chloride) 40 meq PO Q4H [facility] Stop: 02/25/20 11:01 Last Admin: 02/25/20 15:24 Dose: Not Given Documented by: Potassium Chloride (Klor-Con M20) 40 meq PO ONETIME ONE Stop: 02/25/20 16:23 Last Admin: 02/25/20 17:04 Dose: 40 meq Documented by: Sodium Chloride (Normal Saline) 1,000 ml IV NOW STA Stop: 02/25/20 06:06 Last Admin: 02/25/20 06:30 Dose: 1,000 ml Documented by: - Exam General: Alert, Oriented, Cooperative Neck: Supple Lungs: Clear to Auscultation, Normal Respiratory Effort Cardiovascular: Regular Rate, Regular Rhythm GI/Abdominal Exam: Normal Bowel Sounds, Soft, Non-Tender Sepsis Event Note - Evaluation Sepsis Screening Result: No Definite Risk - Focused Exam Vital Signs: Vital Signs Temp Resp BP Pulse Ox 02/26/20 10:00 36.7 C 16 96/59 L 95 02/26/20 08:29 36.7 C 13 91/52 L 95 02/26/20 08:00 16 89/55 L 95 02/26/20 06:29 12 90/56 L 96 02/26/20 06:00 19 97/59 L 97 02/26/20 05:00 19 103/59 L 99 02/26/20 04:00 36.4 C 15 86/49 L 95 02/26/20 03:00 16 88/49 L 96 02/26/20 02:00 13 89/47 L 95 02/26/20 01:00 17 86/52 L 94 L 02/26/20 00:00 36.5 C 19 93/57 L 94 L Consult PN Assessment/Plan Procedures: Procedures ASSAY OF FREE TESTOSTERONE (03/14/17) ASSAY OF GONADOTROPIN ([facility]) (12/16/16) ASSAY OF GONADOTROPIN (LH) (12/16/16) ASSAY OF PROLACTIN (12/16/16) ASSAY OF PROTEIN URINE (02/08/20) ASSAY OF TOTAL TESTOSTERONE (03/14/17) ASSAY OF URINE CREATININE (02/08/20) ASSAY THYROID STIM HORMONE (12/16/16) BLOOD CULTURE FOR BACTERIA (02/23/20) COMPLETE CBC W/AUTO DIFF WBC (02/23/20) COMPREHEN METABOLIC PANEL (12/26/16) CULTURE AEROBIC IDENTIFY (02/23/20) CULTURE OTHR SPECIMN AEROBIC (02/23/20) CULTURE SCREEN ONLY (01/25/20) CYTOPATH C/V AUTO FLUID REDO (07/15/19) LIPID PANEL (01/23/18) MICROBE SUSCEPTIBLE WILBERTO (02/23/20) ROUTINE VENIPUNCTURE (02/23/20) SARS-COV-2 COVID-19 AMP PRB (01/11/20) URINE CULTURE/COLONY COUNT (02/23/20) (1) Septic shock SNOMED Code(s): 64766977 Code(s): A41.9 - SEPSIS, UNSPECIFIED ORGANISM; R65.21 - SEVERE SEPSIS WITH SEPTIC SHOCK Current Visit: Yes (2) DUNCAN (acute kidney injury) SNOMED Code(s): 56731580, 22772242 Code(s): N17.9 - ACUTE KIDNEY FAILURE, UNSPECIFIED Current Visit: Yes (3) Vaginal delivery SNOMED Code(s): 219497261 Code(s): O80 - ENCOUNTER FOR FULL-TERM UNCOMPLICATED DELIVERY Current Visit: No Problem List Initiated/Reviewed/Updated: Yes My Orders Last 24 Hours: My Active Orders 02/25/20 14:30 Linezolid [Zyvox] 600 mg Premix Bag 1 bag IV Q12H 02/26/20 Breakfast Regular Diet [DIET] Plan: 25-year-old female admitted for sepsis post delivery. 1. Septic shock: Resolved, cultures negative so far cot IV antibiotics for another day. DUNCAN has resolved Decrease fluids to 125 cc/hr TV US results noted DVT prophylaxis: Enoxaparin 40 subQ GI prophylaxis: 40 pantoprazole Advance to Regular diet
--- NOTE | 2020-02-26 11:35 | PCM.PN ---
- General Info Date of Service: 02/26/20 Functional Status: Reports: Other (Patient had improvement overnight. BP 80-90s/50-60s. HR 70s-90s. Last fever was 1700. Rash has resolved with steroids, swelling is also improved. Had good UO. Minimal vaginal bleeding. ) - Review of Systems General: Reports: Fatigue HEENT: Reports: No Symptoms Pulmonary: Reports: No Symptoms Cardiovascular: Reports: No Symptoms Gastrointestinal: Reports: No Symptoms Genitourinary: Reports: No Symptoms Musculoskeletal: Reports: No Symptoms Skin: Reports: No Symptoms Neurological: Reports: No Symptoms Psychiatric: Reports: No Symptoms - Patient Data Vitals - Most Recent: Last Vital Signs Temp 36.7 C 02/26/20 10:00 Pulse 142 H 02/25/20 01:03 Resp 16 02/26/20 10:00 BP 96/59 L 02/26/20 10:00 Pulse Ox 95 02/26/20 10:00 Weight - Most Recent: 197 lb 6.4 oz I&O - Last 24 Hours: Intake & Output 02/25/20 02/26/20 02/26/20 22:59 06:59 14:59 Intake Total 1400 2850 1050 Output Total 900 1860 Balance 030 043 [id number] Lab Results Last 24 Hours: Laboratory Results - last 24 hr 02/26/20 02/26/20 Range/Units 06:20 06:20 WBC 9.22 (4.0-11.0) K/uL RBC 3.71 L (4.30-5.90) M/uL Hgb 10.7 L (12.0-16.0) g/dL Hct 31.9 L (36.0-46.0) % MCV 86.0 (80.0-98.0) fL MCH 28.8 (27.0-32.0) pg MCHC 33.5 (31.0-37.0) g/dL RDW Std Deviation 45.1 (28.0-62.0) fl RDW Coeff of Rosa 14 (11.0-15.0) % Plt Count 86 L (150-400) K/uL MPV 10.90 (7.40-12.00) fL Add Manual Diff YES Neutrophils % (Manual) 83 H (48.0-80.0) % Band Neutrophils % 5 % Lymphocytes % (Manual) 7 L (16.0-40.0) % Monocytes % (Manual) 4 (0.0-15.0) % Eosinophils % (Manual) 1 (0.0-7.0) % Nucleated RBC % 0.0 /100WBC Absolute Seg Neuts 7.7 H (1.4-5.7) Band Neutrophils # 0.5 Lymphocytes # (Manual) 0.6 (0.6-2.4) Monocytes # (Manual) 0.4 (0.0-0.8) Eosinophils # (Manual) 0.1 (0.0-0.7) Nucleated RBCs # 0 K/uL Sodium 138 (136-145) mmol/L Potassium 4.6 (3.5-5.1) mmol/L Chloride 107 (98-107) mmol/L Carbon Dioxide 22.2 (21.0-32.0) mmol/L BUN 14 (7.0-18.0) mg/dL Creatinine 1.0 (0.6-1.0) mg/dL Est Cr Clr Drug Dosing 73.62 mL/min Estimated GFR (MDRD) > 60.0 ml/min Glucose 110 H (74-106) mg/dL Calcium 8.1 L (8.5-10.1) mg/dL Magnesium 2.3 (1.8-2.4) mg/dL Total Bilirubin 0.6 (0.2-1.0) mg/dL AST 16 (15-37) IU/L ALT 35 (14-63) IU/L Alkaline Phosphatase 96 (46-116) U/L Total Protein 4.5 L (6.4-8.2) g/dL Albumin 1.6 L (3.4-5.0) g/dL Globulin 2.9 (2.6-4.0) g/dL Albumin/Globulin Ratio 0.6 L (0.9-1.6) Wilberto Results Last 24 Hours: Microbiology 02/24/20 14:01 Urine Culture - Final Urine, Voided No Growth 02/25/20 02:03 Aerobic Blood Culture - Preliminary Blood - Venous - Lab Draw NO GROWTH AFTER 1 DAY Anaerobic Blood Culture - Preliminary NO GROWTH AFTER 1 DAY 02/25/20 02:00 Aerobic Blood Culture - Preliminary Blood - Venous NO GROWTH AFTER 1 DAY Anaerobic Blood Culture - Preliminary NO GROWTH AFTER 1 DAY 02/25/20 15:00 C. difficile Antigen & Toxins A,B - Final Stool / Feces Med Orders - Current: Current Medications Acetaminophen (Tylenol) 650 mg PO Q4H PRN PRN Reason: Pain (Mild 1-3)/fever Last Admin: 02/25/20 15:24 Dose: 650 mg Documented by: Acidophilus/Pectin (Acidophilus/Pectin, [place]) 1 tab PO DAILY [facility] Last Admin: 02/26/20 09:19 Dose: 1 tab Documented by: Enoxaparin Sodium (Lovenox) 40 mg SUBCUT Q24H [facility] Last Admin: 02/25/20 19:43 Dose: 40 mg Documented by: Pantoprazole Sodium 40 mg/ (Sodium Chloride) 10 mls @ 300 mls/hr IV DAILY [facility] Last Admin: 02/26/20 09:19 Dose: 300 mls/hr Documented by: Lactated Ringer's (Ringers, Lactated) 1,000 mls @ 200 mls/hr IV ASDIRECTED [facility] Last Admin: 02/26/20 00:21 Dose: 200 mls/hr Documented by: Linezolid 600 mg/ Premix 300 mls @ 300 mls/hr IV Q12H [facility] Last Admin: 02/26/20 02:28 Dose: 300 mls/hr Documented by: Meropenem/Sodium Chloride (Meropenem) 50 mls @ 100 mls/hr IV Q8H [facility] Last Admin: 02/26/20 10:09 Dose: 100 mls/hr Documented by: Ondansetron HCl (Zofran) 4 mg IVPUSH Q4H PRN PRN Reason: Nausea/Vomiting Last Admin: 02/25/20 09:48 Dose: 4 mg Documented by: Discontinued Medications Acetaminophen (Tylenol Extra Strength) 1,000 mg PO ONETIME ONE Stop: 02/24/20 15:48 Last Admin: 02/24/20 15:51 Dose: 1,000 mg Documented by: Acetaminophen (Tylenol Extra Strength) Confirm Administered Dose 1,000 mg .ROUTE .STK-MED ONE Stop: 02/24/20 15:49 Last Admin: 02/24/20 15:55 Dose: Not Given Documented by: Calcium Gluconate (Calcium Gluconate) 1 gm IVPUSH ONETIME ONE Stop: 02/24/20 18:08 Last Admin: 02/24/20 18:25 Dose: 1 gm Documented by: Diphenhydramine HCl (Benadryl) 25 mg IVPUSH ONETIME ONE Stop: 02/25/20 11:35 Last Admin: 02/25/20 11:57 Dose: 25 mg Documented by: Diphenhydramine HCl (Benadryl) 50 mg IVPUSH ONETIME ONE Stop: 02/25/20 14:47 Last Admin: 02/25/20 15:27 Dose: 50 mg Documented by: Famotidine (Pepcid) 20 mg IVPUSH ONETIME ONE Stop: 02/25/20 14:46 Last Admin: 02/25/20 15:27 Dose: 20 mg Documented by: Sodium Chloride (Normal Saline) 1,000 mls @ 999 mls/hr IV .BOLUS ONE Stop: 02/24/20 15:22 Last Admin: 02/24/20 14:26 Dose: 999 mls/hr Documented by: Sodium Chloride (Normal Saline) 1,000 mls @ 1,000 mls/hr IV .Bolus ONE Stop: 02/24/20 16:46 Last Admin: 02/24/20 15:52 Dose: 1,000 mls/hr Documented by: Sodium Chloride (Normal Saline) 1,000 mls @ 999 mls/hr IV .Bolus ONE Stop: 02/24/20 18:06 Last Admin: 02/24/20 17:08 Dose: 999 mls/hr Documented by: Magnesium Sulfate (Magnesium Sulfate In Water Premix) 1 gm in 25 mls @ 50 mls/hr IV ONETIME ONE Stop: 02/24/20 18:37 Last Admin: 02/24/20 18:25 Dose: 50 mls/hr Documented by: Piperacillin Sod/Tazobactam (Sod 3.375 gm/ Sodium Chloride) 50 mls @ 100 mls/hr IV ONETIME ONE Stop: 02/24/20 18:47 Last Admin: 02/24/20 19:27 Dose: 100 mls/hr Documented by: Piperacillin Sod/Tazobactam (Sod 2.25 gm/ Sodium Chloride) 50 mls @ 100 mls/hr IV Q6H [facility] Sodium Chloride (Normal Saline) 1,000 mls @ 125 mls/hr IV ASDIRECTED [facility] Sodium Chloride (Normal Saline) 1,000 mls @ 125 mls/hr IV ASDIRECTED [facility] Last Admin: 02/24/20 21:02 Dose: 125 mls/hr Documented by: Sodium Chloride (Normal Saline) 500 mls @ 999 mls/hr IV BOLUS ONE Stop: 02/24/20 23:32 Last Admin: 02/24/20 23:12 Dose: 999 mls/hr Documented by: Sodium Chloride (Normal Saline) 1,000 mls @ 200 mls/hr IV ASDIRECTED [facility] Last Infusion: 02/25/20 00:10 Dose: 0 mls/hr Documented by: Sodium Chloride (Normal Saline) 500 mls @ 999 mls/hr IV NOW STA Stop: 02/25/20 00:30 Last Admin: 02/25/20 00:10 Dose: 999 mls/hr Documented by: Sodium Chloride (Normal Saline) 1,000 mls @ 999 mls/hr IV BOLUS ONE Stop: 02/25/20 01:48 Last Admin: 02/25/20 01:05 Dose: 999 mls/hr Documented by: Vancomycin HCl 2 gm/ Sodium (Chloride) 500 mls @ 333 mls/hr IV NOW ONE Stop: 02/25/20 02:30 Last Admin: 02/25/20 02:25 Dose: 333 mls/hr Documented by: Piperacillin Sod/Tazobactam (Sod 4.5 gm/ Sodium Chloride) 100 mls @ 100 mls/hr IV Q8H [facility] Last Admin: 02/25/20 04:53 Dose: Not Given Documented by: Meropenem 1 gm/ Sodium (Chloride) 100 mls @ 200 mls/hr IV ONETIME ONE Stop: 02/25/20 01:52 Last Admin: 02/25/20 02:37 Dose: Not Given Documented by: Sodium Chloride (Normal Saline) 1,000 mls @ 999 mls/hr IV BOLUS ONE Stop: 02/25/20 02:25 Last Admin: 02/25/20 02:12 Dose: 999 mls/hr Documented by: Meropenem 1 gm/ Sodium (Chloride) 100 mls @ 200 mls/hr IV ONETIME ONE Stop: 02/25/20 03:59 Last Admin: 02/25/20 04:03 Dose: 200 mls/hr Documented by: Piperacillin Sod/Tazobactam (Sod 4.5 gm/ Sodium Chloride) 100 mls @ 100 mls/hr IV Q8H [facility] Last Admin: 02/25/20 10:59 Dose: 100 mls/hr Documented by: Vancomycin HCl 1.25 gm/ Sodium (Chloride) 250 mls @ 166.667 mls/hr IV Q12H [facility] Norepinephrine Bitartrate (Norepinephr-0.9% Nacl 4 Mg/250) 4 mg in 250 mls @ 7.5 mls/hr IV TITRATE [facility]; Protocol Lactated Ringer's (Ringers, Lactated) 1,000 mls @ 999 mls/hr IV .BOLUS ONE Stop: 02/25/20 10:44 Last Admin: 02/25/20 10:04 Dose: 999 mls/hr Documented by: Magnesium Sulfate (Magnesium Sulfate In Water Premix) 2 gm in 50 mls @ 50 mls/hr IV ONETIME ONE Stop: 02/25/20 14:50 Last Admin: 02/25/20 16:59 Dose: 50 mls/hr Documented by: Iopamidol (Isovue Multipack-370 (76%)) 100 ml IVPUSH ONETIME STA Stop: 02/24/20 16:58 Last Admin: 02/24/20 16:57 Dose: 100 ml Documented by: Methylprednisolone Sodium Succinate (Solu-Medrol) 40 mg IVPUSH ONETIME ONE Stop: 02/25/20 11:35 Last Admin: 02/25/20 12:00 Dose: 40 mg Documented by: Methylprednisolone Sodium Succinate (Solu-Medrol) 125 mg IVPUSH ONETIME ONE Stop: 02/25/20 14:46 Last Admin: 02/25/20 15:26 Dose: 125 mg Documented by: Potassium Chloride (Potassium Chloride) 40 meq PO Q4H [facility] Stop: 02/25/20 11:01 Last Admin: 02/25/20 15:24 Dose: Not Given Documented by: Potassium Chloride (Klor-Con M20) 40 meq PO ONETIME ONE Stop: 02/25/20 16:23 Last Admin: 02/25/20 17:04 Dose: 40 meq Documented by: Sodium Chloride (Normal Saline) 1,000 ml IV NOW STA Stop: 02/25/20 06:06 Last Admin: 02/25/20 06:30 Dose: 1,000 ml Documented by: - Exam General: Alert, Oriented, Cooperative, No Acute Distress HEENT: Pupils Equal, Pupils Reactive Neck: Supple, Trachea Midline, No JVD Lungs: Clear to Auscultation Cardiovascular: Regular Rate, Regular Rhythm GI/Abdominal Exam: Normal Bowel Sounds, Soft, Non-Tender, No Distention (Female) Exam: Normal External Exam Back Exam: Normal Inspection, Full Range of Motion Extremities: Normal Inspection, Normal Range of Motion, Non-Tender, Pedal Edema Skin: Warm, Dry, Intact Neurological: No New Focal Deficit Psy/Mental Status: Alert, Normal Affect, Normal Mood Sepsis Event Note - Evaluation Sepsis Screening Result: No Definite Risk - Focused Exam Vital Signs: Vital Signs Temp Resp BP Pulse Ox 02/26/20 10:00 36.7 C 16 96/59 L 95 02/26/20 08:29 36.7 C 13 91/52 L 95 02/26/20 08:00 16 89/55 L 95 02/26/20 06:29 12 90/56 L 96 02/26/20 06:00 19 97/59 L 97 02/26/20 05:00 19 103/59 L 99 02/26/20 04:00 36.4 C 15 86/49 L 95 02/26/20 03:00 16 88/49 L 96 02/26/20 02:00 13 89/47 L 95 02/26/20 01:00 17 86/52 L 94 L 02/26/20 00:00 36.5 C 19 93/57 L 94 L - Problem List Review Problem List Initiated/Reviewed/Updated: Yes - My Orders Last 24 Hours: My Active Orders 02/25/20 12:30 Admission Status [Patient Status] [ADT] Routine 02/27/20 05:11 CBC WITH AUTO DIFF [HEME] DAILY COMPREHENSIVE METABOLIC PN,CMP [CHEM] DAILY MAGNESIUM [CHEM] DAILY - Assessment Assessment:: 25yo admitted for sepsis due to suspected endometritis. - Plan Plan:: - BP and HR stable overnight, afebrile since 1700. - WBC improving, decreased bands - blood and urine cultures has been no growth, suspect infection is from endometritis - TVUS reviewed, no POCs, small amount of blood clots - Plt has been trending down, 89 today. Bleeding is minimal. Low suspicion for HELLP or ITP, likely reaction to sepsis or medications given. Will continue to trend - DUNCAN improving, Cr of 1.0 today. UO of 2600cc last 24hrs - Continue meropenum and linezolid Clinically improving, Will continue to monitor closely. Plan for discharge tomorrow with oral antibiotics if continues to be stable. Appreciate consult and recommendations of medicine team.
[2020-02-26] MEDS: Enoxaparin 40 MG/0.4 ML Syringe SUBCUT SCH (19:42)
[2020-02-27] MEDS: MEROPENEM 1 GM IV SCH ×2 (01:56→10:12)
[2020-02-27] MEDS: Linezolid 600 MG in Premix Bag 1 BAG IV SCH (02:34)
[2020-02-27] MEDS: Acetaminophen 325 MG Tab PO PRN (03:35)
[2020-02-27 06:32] LABS: BLOOD UREA NITROGEN,BUN 23 mg/dL (7.0-18.0); CHLORIDE,CL 107 mmol/L (98-107); GLUCOSE RANDOM 85 mg/dL (74-106); POTASSIUM,K 3.9 mmol/L (3.5-5.1); SODIUM,NA 138 mmol/L (136-145)
[2020-02-27] MEDS: Pantoprazole 40 MG in Sodium Chloride 0.9% 10 ML IV SCH (08:42)
[2020-02-27] MEDS: Acidophilus with Citrus Pectin Tab PO SCH (08:42)
--- NOTE | 2020-02-27 12:04 | PCM.CONSN ---
- General Info Date of Service: 02/27/20 Subjective Update: Patient is a 25-year-old female admitted for sepsis, has remained afebrile and vitally stable with previously known baseline low blood pressures. Overnight low blood pressure was recorded to be 88/54 however her maps remained above 65 and patient did not complain of any dizziness or lethargy. Patient has been able to tolerate a p.o. diet, sleep well as well as stool and micturate with some lochial discharge. Overnight there were no acute events, this morning patient states she is feeling much improved and eager to go home. Patient was seen and examined at bedside, tearful and missing her family. Patient denied any fever, chills, dysuria, shortness of breath or pain in her legs or swelling. - Review of Systems General: Reports: No Symptoms HEENT: Reports: No Symptoms Pulmonary: Reports: No Symptoms Cardiovascular: Reports: No Symptoms Gastrointestinal: Reports: No Symptoms Genitourinary: Reports: No Symptoms Musculoskeletal: Reports: No Symptoms Skin: Reports: No Symptoms Neurological: Reports: No Symptoms Psychiatric: Reports: No Symptoms - Patient Data Vitals - Most Recent: Last Vital Signs Temp 98.2 F 02/27/20 10:00 Pulse 142 H 02/25/20 01:03 Resp 16 02/27/20 11:00 BP 92/60 02/27/20 11:00 Pulse Ox 96 02/27/20 11:00 Weight - Most Recent: 197 lb 6.4 oz I&O - Last 24 Hours: Intake & Output 02/26/20 02/27/20 02/27/20 22:59 06:59 14:59 Intake Total 1260 1940 Output Total 1250 2400 Balance 10 -460 Lab Results Last 24 Hours: Laboratory Results - last 24 hr 02/27/20 02/27/20 02/27/20 Range/Units 05:45 05:45 10:34 WBC 11.24 H (4.0-11.0) K/uL RBC 3.67 L (4.30-5.90) M/uL Hgb 10.6 L (12.0-16.0) g/dL Hct 31.4 L (36.0-46.0) % MCV 85.6 (80.0-98.0) fL MCH 28.9 (27.0-32.0) pg MCHC 33.8 (31.0-37.0) g/dL RDW Std Deviation 45.0 (28.0-62.0) fl RDW Coeff of Rosa 14 (11.0-15.0) % Plt Count 58 L (150-400) K/uL MPV 11.50 (7.40-12.00) fL Add Manual Diff YES Neutrophils % (Manual) 77 (48.0-80.0) % Band Neutrophils % 4 % Lymphocytes % (Manual) 15 L (16.0-40.0) % Monocytes % (Manual) 2 (0.0-15.0) % Eosinophils % (Manual) 2 (0.0-7.0) % Nucleated RBC % 0.0 /100WBC Absolute Seg Neuts 8.7 H (1.4-5.7) Band Neutrophils # 0.4 Lymphocytes # (Manual) 1.7 (0.6-2.4) Monocytes # (Manual) 0.2 (0.0-0.8) Eosinophils # (Manual) 0.2 (0.0-0.7) Nucleated RBCs # 0 K/uL INR 1.01 Sodium 138 (136-145) mmol/L Potassium 3.9 (3.5-5.1) mmol/L Chloride 107 (98-107) mmol/L Carbon Dioxide 23.0 (21.0-32.0) mmol/L BUN 23 H (7.0-18.0) mg/dL Creatinine 1.0 (0.6-1.0) mg/dL Est Cr Clr Drug Dosing 73.62 mL/min Estimated GFR (MDRD) > 60.0 ml/min Glucose 85 (74-106) mg/dL Calcium 8.0 L (8.5-10.1) mg/dL Magnesium 1.8 (1.8-2.4) mg/dL Total Bilirubin 0.4 (0.2-1.0) mg/dL AST 15 (15-37) IU/L ALT 32 (14-63) IU/L Alkaline Phosphatase 100 (46-116) U/L Total Protein 4.0 L (6.4-8.2) g/dL Albumin 1.4 L (3.4-5.0) g/dL Globulin 2.6 (2.6-4.0) g/dL Albumin/Globulin Ratio 0.5 L (0.9-1.6) Wilberto Results Last 24 Hours: Microbiology 02/25/20 02:03 Aerobic Blood Culture - Preliminary Blood - Venous - Lab Draw NO GROWTH AFTER 2 DAYS Anaerobic Blood Culture - Preliminary NO GROWTH AFTER 2 DAYS 02/25/20 02:00 Aerobic Blood Culture - Preliminary Blood - Venous NO GROWTH AFTER 2 DAYS Anaerobic Blood Culture - Preliminary NO GROWTH AFTER 2 DAYS 02/24/20 14:01 Urine Culture - Final Urine, Voided No Growth Med Orders - Current: Current Medications Acetaminophen (Tylenol) 650 mg PO Q4H PRN PRN Reason: Pain (Mild 1-3)/fever Last Admin: 02/27/20 03:35 Dose: 650 mg Documented by: Acidophilus/Pectin (Acidophilus/Pectin, Glynn) 1 tab PO DAILY [facility] Last Admin: 02/27/20 08:42 Dose: 1 tab Documented by: Enoxaparin Sodium (Lovenox) 40 mg SUBCUT Q24H [facility] Last Admin: 02/26/20 19:42 Dose: Not Given Documented by: Pantoprazole Sodium 40 mg/ (Sodium Chloride) 10 mls @ 300 mls/hr IV DAILY [facility] Last Admin: 02/27/20 08:42 Dose: 300 mls/hr Documented by: Lactated Ringer's (Ringers, Lactated) 1,000 mls @ 125 mls/hr IV ASDIRECTED [facility] Last Infusion: 02/26/20 20:30 Dose: 0 mls/hr Documented by: Linezolid 600 mg/ Premix 300 mls @ 300 mls/hr IV Q12H [facility] Last Admin: 02/27/20 02:34 Dose: 300 mls/hr Documented by: Meropenem/Sodium Chloride (Meropenem) 50 mls @ 100 mls/hr IV Q8H [facility] Last Admin: 02/27/20 10:12 Dose: 100 mls/hr Documented by: Ondansetron HCl (Zofran) 4 mg IVPUSH Q4H PRN PRN Reason: Nausea/Vomiting Last Admin: 02/25/20 09:48 Dose: 4 mg Documented by: Discontinued Medications Acetaminophen (Tylenol Extra Strength) 1,000 mg PO ONETIME ONE Stop: 02/24/20 15:48 Last Admin: 02/24/20 15:51 Dose: 1,000 mg Documented by: Acetaminophen (Tylenol Extra Strength) Confirm Administered Dose 1,000 mg .ROUTE .STK-MED ONE Stop: 02/24/20 15:49 Last Admin: 02/24/20 15:55 Dose: Not Given Documented by: Calcium Gluconate (Calcium Gluconate) 1 gm IVPUSH ONETIME ONE Stop: 02/24/20 18:08 Last Admin: 02/24/20 18:25 Dose: 1 gm Documented by: Diphenhydramine HCl (Benadryl) 25 mg IVPUSH ONETIME ONE Stop: 02/25/20 11:35 Last Admin: 02/25/20 11:57 Dose: 25 mg Documented by: Diphenhydramine HCl (Benadryl) 50 mg IVPUSH ONETIME ONE Stop: 02/25/20 14:47 Last Admin: 02/25/20 15:27 Dose: 50 mg Documented by: Famotidine (Pepcid) 20 mg IVPUSH ONETIME ONE Stop: 02/25/20 14:46 Last Admin: 02/25/20 15:27 Dose: 20 mg Documented by: Sodium Chloride (Normal Saline) 1,000 mls @ 999 mls/hr IV .BOLUS ONE Stop: 02/24/20 15:22 Last Admin: 02/24/20 14:26 Dose: 999 mls/hr Documented by: Sodium Chloride (Normal Saline) 1,000 mls @ 1,000 mls/hr IV .Bolus ONE Stop: 02/24/20 16:46 Last Admin: 02/24/20 15:52 Dose: 1,000 mls/hr Documented by: Sodium Chloride (Normal Saline) 1,000 mls @ 999 mls/hr IV .Bolus ONE Stop: 02/24/20 18:06 Last Admin: 02/24/20 17:08 Dose: 999 mls/hr Documented by: Magnesium Sulfate (Magnesium Sulfate In Water Premix) 1 gm in 25 mls @ 50 mls/hr IV ONETIME ONE Stop: 02/24/20 18:37 Last Admin: 02/24/20 18:25 Dose: 50 mls/hr Documented by: Piperacillin Sod/Tazobactam (Sod 3.375 gm/ Sodium Chloride) 50 mls @ 100 mls/hr IV ONETIME ONE Stop: 02/24/20 18:47 Last Admin: 02/24/20 19:27 Dose: 100 mls/hr Documented by: Piperacillin Sod/Tazobactam (Sod 2.25 gm/ Sodium Chloride) 50 mls @ 100 mls/hr IV Q6H [facility] Sodium Chloride (Normal Saline) 1,000 mls @ 125 mls/hr IV ASDIRECTED [facility] Sodium Chloride (Normal Saline) 1,000 mls @ 125 mls/hr IV ASDIRECTED [facility] Last Admin: 02/24/20 21:02 Dose: 125 mls/hr Documented by: Sodium Chloride (Normal Saline) 500 mls @ 999 mls/hr IV BOLUS ONE Stop: 02/24/20 23:32 Last Admin: 02/24/20 23:12 Dose: 999 mls/hr Documented by: Sodium Chloride (Normal Saline) 1,000 mls @ 200 mls/hr IV ASDIRECTED [facility] Last Infusion: 02/25/20 00:10 Dose: 0 mls/hr Documented by: Sodium Chloride (Normal Saline) 500 mls @ 999 mls/hr IV NOW STA Stop: 02/25/20 00:30 Last Admin: 02/25/20 00:10 Dose: 999 mls/hr Documented by: Sodium Chloride (Normal Saline) 1,000 mls @ 999 mls/hr IV BOLUS ONE Stop: 02/25/20 01:48 Last Admin: 02/25/20 01:05 Dose: 999 mls/hr Documented by: Vancomycin HCl 2 gm/ Sodium (Chloride) 500 mls @ 333 mls/hr IV NOW ONE Stop: 02/25/20 02:30 Last Admin: 02/25/20 02:25 Dose: 333 mls/hr Documented by: Piperacillin Sod/Tazobactam (Sod 4.5 gm/ Sodium Chloride) 100 mls @ 100 mls/hr IV Q8H [facility] Last Admin: 02/25/20 04:53 Dose: Not Given Documented by: Meropenem 1 gm/ Sodium (Chloride) 100 mls @ 200 mls/hr IV ONETIME ONE Stop: 02/25/20 01:52 Last Admin: 02/25/20 02:37 Dose: Not Given Documented by: Sodium Chloride (Normal Saline) 1,000 mls @ 999 mls/hr IV BOLUS ONE Stop: 02/25/20 02:25 Last Admin: 02/25/20 02:12 Dose: 999 mls/hr Documented by: Meropenem 1 gm/ Sodium (Chloride) 100 mls @ 200 mls/hr IV ONETIME ONE Stop: 02/25/20 03:59 Last Admin: 02/25/20 04:03 Dose: 200 mls/hr Documented by: Piperacillin Sod/Tazobactam (Sod 4.5 gm/ Sodium Chloride) 100 mls @ 100 mls/hr IV Q8H [facility] Last Admin: 02/25/20 10:59 Dose: 100 mls/hr Documented by: Vancomycin HCl 1.25 gm/ Sodium (Chloride) 250 mls @ 166.667 mls/hr IV Q12H [facility] Norepinephrine Bitartrate (Norepinephr-0.9% Nacl 4 Mg/250) 4 mg in 250 mls @ 7.5 mls/hr IV TITRATE [facility]; Protocol Lactated Ringer's (Ringers, Lactated) 1,000 mls @ 999 mls/hr IV .BOLUS ONE Stop: 02/25/20 10:44 Last Admin: 02/25/20 10:04 Dose: 999 mls/hr Documented by: Magnesium Sulfate (Magnesium Sulfate In Water Premix) 2 gm in 50 mls @ 50 mls/hr IV ONETIME ONE Stop: 02/25/20 14:50 Last Admin: 02/25/20 16:59 Dose: 50 mls/hr Documented by: Iopamidol (Isovue Multipack-370 (76%)) 100 ml IVPUSH ONETIME STA Stop: 02/24/20 16:58 Last Admin: 02/24/20 16:57 Dose: 100 ml Documented by: Methylprednisolone Sodium Succinate (Solu-Medrol) 40 mg IVPUSH ONETIME ONE Stop: 02/25/20 11:35 Last Admin: 02/25/20 12:00 Dose: 40 mg Documented by: Methylprednisolone Sodium Succinate (Solu-Medrol) 125 mg IVPUSH ONETIME ONE Stop: 02/25/20 14:46 Last Admin: 02/25/20 15:26 Dose: 125 mg Documented by: Potassium Chloride (Potassium Chloride) 40 meq PO Q4H [facility] Stop: 02/25/20 11:01 Last Admin: 02/25/20 15:24 Dose: Not Given Documented by: Potassium Chloride (Klor-Con M20) 40 meq PO ONETIME ONE Stop: 02/25/20 16:23 Last Admin: 02/25/20 17:04 Dose: 40 meq Documented by: Sodium Chloride (Normal Saline) 1,000 ml IV NOW STA Stop: 02/25/20 06:06 Last Admin: 02/25/20 06:30 Dose: 1,000 ml Documented by: - Exam Quality Assessment: DVT Prophylaxis (Help due to thrombocytopenia, previously given) General: Alert, Oriented, Cooperative, No Acute Distress HEENT: Pupils Equal, Pupils Reactive, EOMI, Mucous Membr. Moist/[place] Neck: Supple Lungs: Clear to Auscultation, Normal Respiratory Effort Cardiovascular: Regular Rate, Regular Rhythm GI/Abdominal Exam: Normal Bowel Sounds, Soft, Non-Tender, No Distention, No Mass Extremities: Normal Range of Motion, Non-Tender, Normal Capillary Refill, Pedal Edema (Improved). No: Marley's Sign Peripheral Pulses: 2+: Radial (L), Radial (R), Dorsalis Pedis (L), Dorsalis Pedis (R) Skin: Warm, Dry, Intact Neurological: No New Focal Deficit Psy/Mental Status: Alert, Normal Affect, Other (For emotional , however no threat to self or others) Sepsis Event Note - Evaluation Sepsis Screening Result: No Definite Risk - Focused Exam Vital Signs: Vital Signs Temp Resp BP Pulse Ox 02/27/20 11:00 16 92/60 96 02/27/20 10:00 98.2 F 18 108/70 96 02/27/20 09:00 18 98/78 95 02/27/20 08:00 98.2 F 18 101/68 96 02/27/20 07:00 16 93/60 95 02/27/20 06:00 15 96/57 L 94 L 02/27/20 05:00 15 88/54 L 95 02/27/20 04:00 98.6 F 15 93/50 L 95 02/27/20 03:00 17 99/60 96 02/27/20 02:00 19 99/52 L 95 02/27/20 01:00 20 97/56 L 96 02/27/20 00:00 98.8 F 18 96/54 L 95 Consult PN Assessment/Plan Procedures: Procedures ASSAY OF FREE TESTOSTERONE (03/14/17) ASSAY OF GONADOTROPIN (FSH) (12/16/16) ASSAY OF GONADOTROPIN (LH) (12/16/16) ASSAY OF PROLACTIN (12/16/16) ASSAY OF PROTEIN URINE (02/08/20) ASSAY OF TOTAL TESTOSTERONE (03/14/17) ASSAY OF URINE CREATININE (02/08/20) ASSAY THYROID STIM HORMONE (12/16/16) BLOOD CULTURE FOR BACTERIA (02/23/20) COMPLETE CBC W/AUTO DIFF WBC (02/23/20) COMPREHEN METABOLIC PANEL (12/26/16) CULTURE AEROBIC IDENTIFY (02/23/20) CULTURE OTHR SPECIMN AEROBIC (02/23/20) CULTURE SCREEN ONLY (01/25/20) CYTOPATH C/V AUTO FLUID REDO (07/15/19) LIPID PANEL (01/23/18) MICROBE SUSCEPTIBLE WILBERTO (02/23/20) ROUTINE VENIPUNCTURE (02/23/20) SARS-COV-2 COVID-19 AMP PRB (01/11/20) URINE CULTURE/COLONY COUNT (02/23/20) Problem List Initiated/Reviewed/Updated: Yes Plan: 25-year-old female admitted for sepsis post delivery. 1. Sepsis: Started on empiric antibiotics vancomycin and Zosyn, which were changed to linezolid and meropenem due to drug reaction Patient is vitally stable, has remained afebrile, white blood cell count had improved, slight bump to 11.24 likely secondary to previous steroids given the stress response. No source of infection was found as urine culture and blood cultures were negative. Discussed with CERTIFIED ENDOSCOPY TECHNICIAN possible infection of uterine lining. No dysuria, no fever, no chills, no cough. Symptoms from drug reaction have resolved. 2. Thrombocytopenia: Has been continue to trend down -We do not think it is ITP for DIC. Likely secondary to broad spectrum antibiotics, patient was on Lovenox could be contributing but likely not HIT as platelets on above 50,000. No changes noted in hemoglobin which is stable. Patient is status post follow-up with repeat CBC within the week. Check PT and INR prior to discharge. INR was stable at 1.0 3. DUNCAN: Resolved Patient much improved, medically stable, will likely be discharged today per Dr. Sneed.
--- NOTE | 2020-02-27 12:19 | PCM.DCSUM1 ---
Discharge Summary - Hospital Course Free Text/Narrative:: 25yo female 5d s/p uncomplicated admitted for fevers and tachycardia . She did not have other symptoms, was initially treated in clinic, however did not respond to oral antibiotics and dose of ceftriaxone. Labs showed she had elevated Cr of 2.4, and she was mildly hypotensive. She was evaluated in the ED, with slight improvement in Cr after hydration. She had CT chest, abd/pelvic which was negative for clots. She was admitted and started on zosyn for presumed pyleonephritis/endometritis. She then became more hypotensive to 80 to 90s/30 to 40s, and HR of 130-150s, did not respond to initial fluid bolus of 2L. Lactate increased to 4.8. She was admitted to ICU with worsening sepsis and medicine team was consulted. She received additional 6L of fluids, was started on vancomycin, and vital began to improve. Lactate also trended down to normal. She had allergic reaction with diffuse rash and swelling, zosyn and vancomycin was stopped and meropenum and linezoid was started. Reaction improved with steroids and benadryl. She continues to improve over the next 2 days, WBC and bands decreasing, afebrile since 02/24 at 1700. DUNCAN improving, Cr decreased to 1.0. Blood and urine cultures were negative. Transvaginal US did not show ret ained POCs. Her plt also decreased slowly, was 56 on 02/26, she had only light vaginal bleeding. Discussed with medicine team, likely due to infection or reaction to medications, since she is not actively bleeding, transfusion is not indicated. Plan for discharge home today with doxycycline and metronidazole PO, reviewed to call with any increased bleeding. Will follow up in clinic in 3 days with repeat labs. - Discharge Data Discharge Date: 02/27/20 Discharge Disposition: Home, Self-Care 01 Condition: Stable - Referral to Home Health Primary Care Physician: PCP None - Patient Summary/Data Consults: Consultations 02/25/20 01:20 Consult to Physician [CONS] Routine Recommended Follow-up Testing/Procedures: Repeat CBC and CMP. - Patient Instructions Diet: Usual Diet as Tolerated Activity: No Lifting Over 10 Pounds, No Strenuous Activities Driving: Do Not Drive Showering/Bathing: May Shower Notify Provider of: Fever, Increased Pain, Swelling and Redness, Nausea and/or Vomiting Other/Special Instructions: Increased vaginal bleeding. - Discharge Plan *PRESCRIPTION DRUG MONITORING PROGRAM REVIEWED*: Not Applicable *COPY OF PRESCRIPTION DRUG MONITORING REPORT IN PATIENT JONY: Not Applicable Prescriptions/Med Rec: metroNIDAZOLE [Metronidazole] 500 mg PO BID 10 Days #20 tablet Doxycycline [Vibramycin] 100 mg PO BID 10 Days #20 tab Home Medications: Home Meds Pnv No.95/Ferrous Fum/Folic AC [ Caplet] 1 each PO DAILY 02/18/20 [History] Amoxicillin/Potassium Clav [Amox-Clav 875-125 mg Tablet] 1 tab PO BID 02/24/20 [History] Doxycycline [Vibramycin] 100 mg PO BID 10 Days #20 tab 02/27/20 [Rx] metroNIDAZOLE [Metronidazole] 500 mg PO BID 10 Days #20 tablet 02/27/20 [Rx] Patient Handouts: Acute Kidney Injury, Adult, Sepsis, Diagnosis, Adult, Doxycycline tablets or capsules, Metronidazole tablets or capsules Referrals: [facility] [Provider Group] Raoul Sneed MD [Physician] - (Please call provider and make a follow up appointment.) - Discharge Summary/Plan Comment DC Time >30 min.: No - Patient Data Vitals - Most Recent: Last Vital Signs Temp 36.8 C 02/27/20 10:00 Pulse 142 H 02/25/20 01:03 Resp 16 02/27/20 11:00 BP 92/60 02/27/20 11:00 Pulse Ox 96 02/27/20 11:00 Weight - Most Recent: 197 lb 6.4 oz I&O - Last 24 hours: Intake & Output 02/26/20 02/27/20 02/27/20 22:59 06:59 14:59 Intake Total 1260 1940 Output Total 1250 2400 Balance 10 -460 Lab Results - Last 24 hrs: Laboratory Results - last 24 hr 02/27/20 02/27/20 02/27/20 Range/Units 05:45 05:45 10:34 WBC 11.24 H (4.0-11.0) K/uL RBC 3.67 L (4.30-5.90) M/uL Hgb 10.6 L (12.0-16.0) g/dL Hct 31.4 L (36.0-46.0) % MCV 85.6 (80.0-98.0) fL MCH 28.9 (27.0-32.0) pg MCHC 33.8 (31.0-37.0) g/dL RDW Std Deviation 45.0 (28.0-62.0) fl RDW Coeff of Rosa 14 (11.0-15.0) % Plt Count 58 L (150-400) K/uL MPV 11.50 (7.40-12.00) fL Add Manual Diff YES Neutrophils % (Manual) 77 (48.0-80.0) % Band Neutrophils % 4 % Lymphocytes % (Manual) 15 L (16.0-40.0) % Monocytes % (Manual) 2 (0.0-15.0) % Eosinophils % (Manual) 2 (0.0-7.0) % Nucleated RBC % 0.0 /100WBC Absolute Seg Neuts 8.7 H (1.4-5.7) Band Neutrophils # 0.4 Lymphocytes # (Manual) 1.7 (0.6-2.4) Monocytes # (Manual) 0.2 (0.0-0.8) Eosinophils # (Manual) 0.2 (0.0-0.7) Nucleated RBCs # 0 K/uL INR 1.01 Sodium 138 (136-145) mmol/L Potassium 3.9 (3.5-5.1) mmol/L Chloride 107 (98-107) mmol/L Carbon Dioxide 23.0 (21.0-32.0) mmol/L BUN 23 H (7.0-18.0) mg/dL Creatinine 1.0 (0.6-1.0) mg/dL Est Cr Clr Drug Dosing 73.62 mL/min Estimated GFR (MDRD) > 60.0 ml/min Glucose 85 (74-106) mg/dL Calcium 8.0 L (8.5-10.1) mg/dL Magnesium 1.8 (1.8-2.4) mg/dL Total Bilirubin 0.4 (0.2-1.0) mg/dL AST 15 (15-37) IU/L ALT 32 (14-63) IU/L Alkaline Phosphatase 100 (46-116) U/L Total Protein 4.0 L (6.4-8.2) g/dL Albumin 1.4 L (3.4-5.0) g/dL Globulin 2.6 (2.6-4.0) g/dL Albumin/Globulin Ratio 0.5 L (0.9-1.6) FRANCIE Results - Last 24 hrs: Microbiology 02/25/20 02:03 Aerobic Blood Culture - Preliminary Blood - Venous - Lab Draw NO GROWTH AFTER 2 DAYS Anaerobic Blood Culture - Preliminary NO GROWTH AFTER 2 DAYS 02/25/20 02:00 Aerobic Blood Culture - Preliminary Blood - Venous NO GROWTH AFTER 2 DAYS Anaerobic Blood Culture - Preliminary NO GROWTH AFTER 2 DAYS 02/24/20 14:01 Urine Culture - Final Urine, Voided No Growth Med Orders - Current: Current Medications Acetaminophen (Tylenol) 650 mg PO Q4H PRN PRN Reason: Pain (Mild 1-3)/fever Last Admin: 02/27/20 03:35 Dose: 650 mg Documented by: Acidophilus/Pectin (Acidophilus/Pectin, [place]) 1 tab PO DAILY [facility] Last Admin: 02/27/20 08:42 Dose: 1 tab Documented by: Enoxaparin Sodium (Lovenox) 40 mg SUBCUT Q24H [facility] Last Admin: 02/26/20 19:42 Dose: Not Given Documented by: Pantoprazole Sodium 40 mg/ (Sodium Chloride) 10 mls @ 300 mls/hr IV DAILY [facility] Last Admin: 02/27/20 08:42 Dose: 300 mls/hr Documented by: Lactated Ringer's (Ringers, Lactated) 1,000 mls @ 125 mls/hr IV ASDIRECTED [facility] Last Infusion: 02/26/20 20:30 Dose: 0 mls/hr Documented by: Linezolid 600 mg/ Premix 300 mls @ 300 mls/hr IV Q12H [facility] Last Admin: 02/27/20 02:34 Dose: 300 mls/hr Documented by: Meropenem/Sodium Chloride (Meropenem) 50 mls @ 100 mls/hr IV Q8H [facility] Last Admin: 02/27/20 10:12 Dose: 100 mls/hr Documented by: Ondansetron HCl (Zofran) 4 mg IVPUSH Q4H PRN PRN Reason: Nausea/Vomiting Last Admin: 02/25/20 09:48 Dose: 4 mg Documented by: Discontinued Medications Acetaminophen (Tylenol Extra Strength) 1,000 mg PO ONETIME ONE Stop: 02/24/20 15:48 Last Admin: 02/24/20 15:51 Dose: 1,000 mg Documented by: Acetaminophen (Tylenol Extra Strength) Confirm Administered Dose 1,000 mg .ROUTE .STK-MED ONE Stop: 02/24/20 15:49 Last Admin: 02/24/20 15:55 Dose: Not Given Documented by: Calcium Gluconate (Calcium Gluconate) 1 gm IVPUSH ONETIME ONE Stop: 02/24/20 18:08 Last Admin: 02/24/20 18:25 Dose: 1 gm Documented by: Diphenhydramine HCl (Benadryl) 25 mg IVPUSH ONETIME ONE Stop: 02/25/20 11:35 Last Admin: 02/25/20 11:57 Dose: 25 mg Documented by: Diphenhydramine HCl (Benadryl) 50 mg IVPUSH ONETIME ONE Stop: 02/25/20 14:47 Last Admin: 02/25/20 15:27 Dose: 50 mg Documented by: Famotidine (Pepcid) 20 mg IVPUSH ONETIME ONE Stop: 02/25/20 14:46 Last Admin: 02/25/20 15:27 Dose: 20 mg Documented by: Sodium Chloride (Normal Saline) 1,000 mls @ 999 mls/hr IV .BOLUS ONE Stop: 02/24/20 15:22 Last Admin: 02/24/20 14:26 Dose: 999 mls/hr Documented by: Sodium Chloride (Normal Saline) 1,000 mls @ 1,000 mls/hr IV .Bolus ONE Stop: 02/24/20 16:46 Last Admin: 02/24/20 15:52 Dose: 1,000 mls/hr Documented by: Sodium Chloride (Normal Saline) 1,000 mls @ 999 mls/hr IV .Bolus ONE Stop: 02/24/20 18:06 Last Admin: 02/24/20 17:08 Dose: 999 mls/hr Documented by: Magnesium Sulfate (Magnesium Sulfate In Water Premix) 1 gm in 25 mls @ 50 mls/hr IV ONETIME ONE Stop: 02/24/20 18:37 Last Admin: 02/24/20 18:25 Dose: 50 mls/hr Documented by: Piperacillin Sod/Tazobactam (Sod 3.375 gm/ Sodium Chloride) 50 mls @ 100 mls/hr IV ONETIME ONE Stop: 02/24/20 18:47 Last Admin: 02/24/20 19:27 Dose: 100 mls/hr Documented by: Piperacillin Sod/Tazobactam (Sod 2.25 gm/ Sodium Chloride) 50 mls @ 100 mls/hr IV Q6H [facility] Sodium Chloride (Normal Saline) 1,000 mls @ 125 mls/hr IV ASDIRECTED [facility] Sodium Chloride (Normal Saline) 1,000 mls @ 125 mls/hr IV ASDIRECTED [facility] Last Admin: 02/24/20 21:02 Dose: 125 mls/hr Documented by: Sodium Chloride (Normal Saline) 500 mls @ 999 mls/hr IV BOLUS ONE Stop: 02/24/20 23:32 Last Admin: 02/24/20 23:12 Dose: 999 mls/hr Documented by: Sodium Chloride (Normal Saline) 1,000 mls @ 200 mls/hr IV ASDIRECTED [facility] Last Infusion: 02/25/20 00:10 Dose: 0 mls/hr Documented by: Sodium Chloride (Normal Saline) 500 mls @ 999 mls/hr IV NOW STA Stop: 02/25/20 00:30 Last Admin: 02/25/20 00:10 Dose: 999 mls/hr Documented by: Sodium Chloride (Normal Saline) 1,000 mls @ 999 mls/hr IV BOLUS ONE Stop: 02/25/20 01:48 Last Admin: 02/25/20 01:05 Dose: 999 mls/hr Documented by: Vancomycin HCl 2 gm/ Sodium (Chloride) 500 mls @ 333 mls/hr IV NOW ONE Stop: 02/25/20 02:30 Last Admin: 02/25/20 02:25 Dose: 333 mls/hr Documented by: Piperacillin Sod/Tazobactam (Sod 4.5 gm/ Sodium Chloride) 100 mls @ 100 mls/hr IV Q8H [facility] Last Admin: 02/25/20 04:53 Dose: Not Given Documented by: Meropenem 1 gm/ Sodium (Chloride) 100 mls @ 200 mls/hr IV ONETIME ONE Stop: 02/25/20 01:52 Last Admin: 02/25/20 02:37 Dose: Not Given Documented by: Sodium Chloride (Normal Saline) 1,000 mls @ 999 mls/hr IV BOLUS ONE Stop: 02/25/20 02:25 Last Admin: 02/25/20 02:12 Dose: 999 mls/hr Documented by: Meropenem 1 gm/ Sodium (Chloride) 100 mls @ 200 mls/hr IV ONETIME ONE Stop: 02/25/20 03:59 Last Admin: 02/25/20 04:03 Dose: 200 mls/hr Documented by: Piperacillin Sod/Tazobactam (Sod 4.5 gm/ Sodium Chloride) 100 mls @ 100 mls/hr IV Q8H [facility] Last Admin: 02/25/20 10:59 Dose: 100 mls/hr Documented by: Vancomycin HCl 1.25 gm/ Sodium (Chloride) 250 mls @ 166.667 mls/hr IV Q12H [facility] Norepinephrine Bitartrate (Norepinephr-0.9% Nacl 4 Mg/250) 4 mg in 250 mls @ 7.5 mls/hr IV TITRATE [facility]; Protocol Lactated Ringer's (Ringers, Lactated) 1,000 mls @ 999 mls/hr IV .BOLUS ONE Stop: 02/25/20 10:44 Last Admin: 02/25/20 10:04 Dose: 999 mls/hr Documented by: Magnesium Sulfate (Magnesium Sulfate In Water Premix) 2 gm in 50 mls @ 50 mls/hr IV ONETIME ONE Stop: 02/25/20 14:50 Last Admin: 02/25/20 16:59 Dose: 50 mls/hr Documented by: Iopamidol (Isovue Multipack-370 (76%)) 100 ml IVPUSH ONETIME STA Stop: 02/24/20 16:58 Last Admin: 02/24/20 16:57 Dose: 100 ml Documented by: Methylprednisolone Sodium Succinate (Solu-Medrol) 40 mg IVPUSH ONETIME ONE Stop: 02/25/20 11:35 Last Admin: 02/25/20 12:00 Dose: 40 mg Documented by: Methylprednisolone Sodium Succinate (Solu-Medrol) 125 mg IVPUSH ONETIME ONE Stop: 02/25/20 14:46 Last Admin: 02/25/20 15:26 Dose: 125 mg Documented by: Potassium Chloride (Potassium Chloride) 40 meq PO Q4H [facility] Stop: 02/25/20 11:01 Last Admin: 02/25/20 15:24 Dose: Not Given Documented by: Potassium Chloride (Klor-Con M20) 40 meq PO ONETIME ONE Stop: 02/25/20 16:23 Last Admin: 02/25/20 17:04 Dose: 40 meq Documented by: Sodium Chloride (Normal Saline) 1,000 ml IV NOW STA Stop: 02/25/20 06:06 Last Admin: 02/25/20 06:30 Dose: 1,000 ml Documented by:
== END 2020-02-27 14:00 | disposition home or self-care (01) | DRG 561 ==
LOC: MW.ED 13:52 → MW.MS 18:12 → MW.ICU 02-25 01:28 → OBSVTOIN 02-25 06:40 → INTOOBSV 02-25 06:42 → OBSVTOIN 02-25 06:42
PROVIDERS: ADMIT Obstetrics & Gynecology; ATTEND Obstetrics & Gynecology
PROC: XW033N5 Introduction of Meropenem-vaborbactam Anti-infective into Peripheral Vein, Percutaneous Approach, New Technology Group 5 (ICD-10-PCS; principal; 2020-02-25)
DX: O85 Puerperal sepsis (principal); N17.9 Acute kidney failure, unspecified; E83.42 Hypomagnesemia; D69.6 Thrombocytopenia, unspecified; R65.21 Severe sepsis with septic shock; Z87.891 Personal history of nicotine dependence; Z98.890 Other specified postprocedural states
CPT/HCPCS: 36415; 71275; 71275-26; 74177; 74177-26; 76830; 76830-26; 80048; 80053; 81001; 83605; 83690; 83735; 84100; 84484; 85025; 85379; 85610; 87040; 87086; 87324; 93005; 93010; 96365; 96367; 96368; 96372; 96375; 99284; 99285-25; A9270-GY; C9113; G0378; J0610; J1200; J1650; J2020; J2185; J2405; J2543; J2920; J2930; J3370; J3475; J3490; J7030; J7040; J7050; J7120; Q9967

== ENCOUNTER 2021-09-06 01:50 | Inpatient (IN) | payer BC ==
[2021-09-06] MEDS ORDERED: Terbutaline 1 MG/ML SDV SUBCUT PRN (02:27)
[2021-09-06] MEDS ORDERED: Lidocaine 1% 50 ML MDV INJECT PRN (02:27)
[2021-09-06] MEDS ORDERED: Sodium Chloride 0.9% 10 ML Syringe FLUSH PRN (02:27)
[2021-09-06] MEDS ORDERED: Methylergonovine 0.2 MG/1 ML Amp IM PRN (02:27)
[2021-09-06] MEDS ORDERED: Misoprostol 200 MCG Tab PO PRN (02:27)
[2021-09-06] MEDS ORDERED: Carboprost Tromethamine 250 MCG/1 ML Amp IM PRN (02:27)
[2021-09-06] MEDS ORDERED: Tranexamic Acid 1,000 MG in Sodium Chloride 0.9% 100 ML IV PRN (02:27)
[2021-09-06] MEDS ORDERED: Butorphanol 1 MG/ML SDV IVPUSH PRN (02:27)
[2021-09-06] MEDS ORDERED: Sodium Chloride 0.9% 20 ML SDV IV PRN (02:27)
[2021-09-06] MEDS ORDERED: Ondansetron 4 MG/2 ML SDV IVPUSH PRN (02:27)
[2021-09-06] MEDS ORDERED: Water For Irrigation,Sterile 1,000 ML Container IRR PRN (02:27)
[2021-09-06] MEDS ORDERED: Sodium Chloride 0.9% 2.5 ML Syringe FLUSH PRN (02:27)
[2021-09-06] MEDS ORDERED: Ampicillin 2 GM in Sodium Chloride 0.9% 100 ML IV ONE (02:27)
[2021-09-06] MEDS ORDERED: Oxytocin/0.9 % Sodium Chloride 30 UNIT/500 ML BAG IV SCH ×2 (02:30)
[2021-09-06] MEDS: Lactated Ringers 1,000 ML IV SCH ×2 (03:03→06:46)
[2021-09-06] MEDS ORDERED: Ampicillin 1 GM in Sodium Chloride 0.9% 50 ML IV SCH (07:00)
[2021-09-06] MEDS ORDERED: oxyCODONE 5 MG Tab PO PRN (10:09)
[2021-09-06] MEDS ORDERED: Bisacodyl 10 MG Supp RECTAL PRN (10:09)
[2021-09-06] MEDS ORDERED: Witch Hazel Medicated Pads 40/Jar TOP PRN (10:09)
[2021-09-06] MEDS ORDERED: Benzocaine/Menthol 20%-0.5% Spray 78 GM Cannister TOP PRN (10:09)
[2021-09-06] MEDS ORDERED: Docusate Sodium 100 MG Cap PO PRN (10:09)
[2021-09-06] MEDS ORDERED: Lanolin 100% Cream 7 GM Tube TOP PRN (10:09)
[2021-09-06] MEDS ORDERED: Acetaminophen 500 MG Tab PO PRN (10:09)
[2021-09-06] MEDS: Acetaminophen 500 MG Tab PO PRN ×2 (11:35→20:08)
[2021-09-07] MEDS: Acetaminophen 500 MG Tab PO PRN ×2 (01:10→06:18)
== END 2021-09-07 13:55 | disposition home or self-care (01) | DRG 560 ==
LOC: MW.OBCHECK 01:50 → MW.OB 01:51 → MW.OBCHECK 02:27 → OBSVTOIN 09:27 → MW.OB 12:48
PROVIDERS: ADMIT Obstetrics & Gynecology; ATTEND Obstetrics & Gynecology
PROC: 10E0XZZ Delivery of Products of Conception, External Approach (ICD-10-PCS; principal; 2021-09-06)
PROC: 10907ZC Drainage of Amniotic Fluid, Therapeutic from Products of Conception, Via Natural or Artificial Opening (ICD-10-PCS; 2021-09-06)
PROC: 3E033VJ Introduction of Other Hormone into Peripheral Vein, Percutaneous Approach (ICD-10-PCS; 2021-09-06)
DX: O48.0 Post-term pregnancy (principal); Z3A.40 40 weeks gestation of pregnancy; Z37.0 Single live birth; O99.824 Streptococcus B carrier state complicating childbirth; Z20.822 Contact with and (suspected) exposure to COVID-19
CPT/HCPCS: 36415; 59025; 59409; 81003; 82803; 85025; 85027; 86592; 86850; 86900; 86901; A9270-GY; J0290; J2405; J2590; J7120; U0002